=== PATIENT | male | born 1945 | race Caucasian/White ===

== ENCOUNTER → 2017-12-03 06:59 | Outpatient (CLI) | payer MEDICARE, OTHER, SELFPAY ==
[2017-12-03 09:14] LABS: Alanine Aminotransferase 42 IU/L (21-72); Albumin 4.5 g/dL (3.5-5.0); Albumin Globulin Ratio 1.7 (1.0-2.8); Alkaline Phosphatase 56 U/L (38-126); Aspartate Aminotransferase 50 IU/L (17-59); BUN Creatinine Ratio 26.7 (6-22); Bilirubin Total 0.9 mg/dL (0.2-1.3); Blood Urea Nitrogen 40 mg/dL (9-20); Calcium 9.7 mg/dL (8.4-10.2); Carbon Dioxide 28 mmol/L (22-32); Chloride 101 mmol/L (98-107); Cholesterol 163 mg/dL (140-199); Globulin 2.6 g/dL (1.7-4.1); Glucose 112 mg/dL (80-110); HDL Cholesterol 33 mg/dL (40-60); HEMOLYSIS < 15 (0-50); LDL Cholesterol Calculated 85 mg/dL (<100); Sodium 141 mmol/L (137-145); Total Protein 7.1 g/dL (6.3-8.2); Triglycerides 224 mg/dL (35-150)
[2017-12-03 09:15] LABS: Potassium 5.4 mmol/L (3.4-5.1)
[2017-12-03 09:39] LABS: Prostate Specific Antigen Scrn 1.11 ng/mL (0.1-4.0)
== END ==
PROVIDERS: PCP Internal Medicine; Visit Provider Internal Medicine
DX: F41.1 Generalized anxiety disorder (principal); I10 Essential (primary) hypertension; Z12.5 Encounter for screening for malignant neoplasm of prostate
CPT/HCPCS: 36415; 80053; 80061; G0103

== ENCOUNTER 2017-12-22 13:59 | Emergency (ER) | payer MEDICARE, OTHER, SELFPAY ==
[2017-12-22 14:01] VITALS: BP 119/66; PULSE 58; RESP 20; TEMP 36.6; O2SAT 99
--- NOTE | 2017-12-22 16:41 | PC.NURSE ---
pt arrival to room, sutures x 7 by md. tube gauze dressing placed/ instructions given. nad. will follow up
--- NOTE | 2017-12-22 19:27 | ED_ITS ---
HPI - Wound/Laceration General Chief Complaint: Wound/Laceration Stated Complaint: sliced pointer finger on lt hand open Time Seen by Provider: 12/22/17 15:24 Source: patient Mode of arrival: ambulatory Limitations: no limitations History of Present Illness HPI narrative: 72-year-old nonsmoking male presents with accidental laceration to the volar surface of his left index finger. His tetanus was updated about 5 years ago. The patient was using a freshly sharp knife in an attempt to soft taste some onions in his kitchen when it slipped and lacerated his finger. He has full range of motion and denies any numbness, weakness or tingling. Onset (ago): minute(s) Extremity Location: Left: hand Place: home Patient tetanus UTD: Yes Context: accidental Associated symptoms: none Related Data Home Medications Medication Instructions Recorded Confirmed multivitamin 1 tab PO DAILY #0 08/08/07 12/22/17 ibuprofen [Advil] 200 mg PO PRN #0 10/02/10 12/22/17 aspirin 325 mg tablet,delayed 325 mg PO DAILY 12/05/17 12/22/17 release doxycycline hyclate 50 mg PO BID 12/22/17 12/22/17 Previous Rx's Medication Instructions Recorded citalopram [Celexa] 20 mg PO QDAY #90 tab 02/13/17 hydrochlorothiazide 25 mg PO QDAY #90 tab 04/07/17 metoprolol succinate 100 mg PO Q DAY #30 tab 09/15/17 clonazepam 0.5 mg tablet 0.5 mg PO BID #60 tab 11/17/17 amlodipine 10 mg tablet 10 mg PO DAILY #90 tab 12/05/17 lisinopril 40 mg tablet 40 mg PO DAILY #90 tab 12/05/17 Allergies Allergy/AdvReac Type Severity Reaction Status Date / Time No Known Drug Allergies Allergy Verified 12/05/17 09:33 Review of Systems Review of Systems All systems reviewed & are unremarkable except as noted in HPI and below Constitutional Denies chills, Denies fever(s), Denies lethargy and Denies weakness Eyes Denies change in vision, Denies eye discharge, Denies irritation and Denies loss of vision ENT Ears, Nose, Mouth, and Throat: Denies change in voice, Denies neck pain and Denies sore throat Cardiovascular Denies chest pain, Denies irregular heart rhythm, Denies lightheadedness, Denies palpitations, Denies dyspnea, Denies dyspnea on exertion and Denies orthopnea Respiratory Denies cough, Denies dyspnea, Denies dyspnea on exertion and Denies wheezing Gastrointestinal Gastrointestinal: Denies abdominal pain, Denies change in bowel habits, Denies diarrhea, Denies nausea and Denies vomiting Genitourinary Denies hematuria, Denies flank pain, Denies urinary incontinence and Denies urinary urgency Musculoskeletal Denies neck pain Integumentary/Breasts Denies pruritus, Denies erythema, Denies rash and Reports wounds Neurologic Denies confusion, Denies loss of vision and Denies weakness Psychiatric Denies anxiety, Denies confusion, Denies depression, Denies homicidal ideation and Denies suicidal ideation Endocrine Denies palpitations Hematologic/Lymphatic Denies easy bruising Allergic/Immunologic Denies wheezing [facility] Medical History Essential hypertension (Chronic 08/22/10) Generalized anxiety disorder (Chronic 08/22/10) Mixed hyperlipidemia (Chronic 10/02/10) Depression (Chronic 08/23/14) Surgical History Status post tonsillectomy and adenoidectomy Social History marital status: number of children: 2 (.) household members: spouse lives independently: Yes caregiver/support person: No housing: house pets and animals: Yes education level: college occupational status: other (Retired) 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 chandu/cheondoism: [employer] leisure activities: other (House work, cooking, dog ) Smoking Status: Former smoker Tobacco: How many years used: 20 Smokeless tobacco user: other (Cigarettes.) quit status: quit date established (Unknown of stopping date.) second hand exposure: Yes (Childhood) alcohol intake: current (Occasionally, Summer time, During games.) substance use type: does not use and marijuana (Back in College) Exam Narrative Exam Narrative: GEN: AOx3 and in mild distress EYES: Pupils are equal, round, and reactive to light and accommodation. Extraoccular muscles are intact bilaterally. There is no subconjunctival hemorrhage or exudate. CHEST: Lungs are clear to auscultation bilaterally and free of wheezes, rales, or rhonchi. Heart rate is regular rhythm, there are no murmurs, clicks, rubs, or gallops. There is no chest wall tenderness. ABD: Abdomen is soft and nontender. There is no guarding or rebound. Bowel sounds are normal in all 4 quadrants. There is no mass or organomegaly. EXT: Full painless ROM of all extremities with no loss of sensation or strength. SKIN: 2 cm laceration on volar surface of left index finger. Viewed in of bloodless field and no tendon involvement noted. Neurovascularly intact Warm, pink, and dry. No erythema or rash Initial Vital Signs Initial Vital Signs: Vital Signs Temperature 97.9 F 12/22/17 14:01 Pulse Rate 58 L 12/22/17 14:01 Respiratory Rate 20 12/22/17 14:01 Blood Pressure 119/66 12/22/17 14:01 Pulse Oximetry 99 12/22/17 14:01 Procedures Laceration Repair Laceration 1: Site: hand Side (If applicable): left Size (cm): 2 Description: linear Depth: simple, single layer Local Anesthetic: lidocaine 1% and with bicarb Amount of anesthesia used (mL): 3 Pre-repair: wound explored and deep structures intact Skin layer closed with: nylon Size (cm): 4-0 Number of sutures: 6 Technique: simple, interrupted Course Vital Signs - 8 hr 12/22/17 14:01 Temperature 97.9 F Pulse Rate 58 L Respiratory Rate 20 Blood Pressure 119/66 Pulse Oximetry 99 Discharge Plan Departure Patient Disposition: Home Clinical Impression: Laceration of finger, index Discharge Date/Time: 12/22/17 16:42 Interventions: ED Discharge Assessment Last Done: 12/22/17 16:41 Instructions: DI for Laceration Repair Activity Restrictions/Additional Instructions: Please keep the wound clean and dry to the best of your ability. Please monitor for signs of infection such as redness to the skin or increasing pain. Have the sutures removed by your doctor in about 7 days. If you are unable to get into your doctor, we would be happy to remove the sutures in that same timeframe. Prescriptions: No Action multivitamin Tablet 1 tab PO DAILY Qty: 0 RF: 0 ibuprofen [Advil] 200 MG tablet 200 mg PO PRN Qty: 0 RF: 0 citalopram [Celexa] 20 MG tablet 20 mg PO QDAY Qty: 90 RF: 11 hydrochlorothiazide 25 MG tablet 25 mg PO QDAY Qty: 90 RF: 3 metoprolol succinate 100 mg tablet extended release 24 hr 100 mg PO Q DAY Qty: 30 RF: 11 clonazepam [Klonopin] 0.5 mg tablet 0.5 mg PO BID Qty: 60 RF: 4 aspirin 325 mg tablet,delayed release (DR/EC) 325 mg PO DAILY RF: 0 amlodipine 10 mg tablet 10 mg PO DAILY Qty: 90 RF: 3 lisinopril 40 mg tablet 40 mg PO DAILY Qty: 90 RF: 3 doxycycline hyclate 100 mg tablet 50 mg PO BID RF: 0 Referrals: Gilmar Darnell MD [Primary Care Provider] -
== END 2017-12-22 16:42 | disposition home or self-care (01) ==
PROVIDERS: Emergency Provider Emergency Medicine; PCP Internal Medicine
DX: S61.211A Laceration without foreign body of left index finger without damage to nail, initial encounter (principal); W26.0XXA Contact with knife, initial encounter
CPT/HCPCS: 12001; 99282; 99283

== ENCOUNTER → 2018-01-27 09:38 | Outpatient (CLI) | payer MEDICARE, OTHER, SELFPAY ==
[2018-01-27 10:38] LABS: BUN Creatinine Ratio 38.3 (6-22); Blood Urea Nitrogen 46 mg/dL (9-20); Calcium 9.1 mg/dL (8.4-10.2); Carbon Dioxide 23 mmol/L (22-32); Chloride 105 mmol/L (98-107); Estimated Glomerular Filt Rate 59.5 mL/min (>60); Glucose 95 mg/dL (80-110); HEMOLYSIS < 15 (0-50); Potassium 5.3 mmol/L (3.4-5.1); Sodium 143 mmol/L (137-145)
== END ==
PROVIDERS: PCP Internal Medicine; Visit Provider Internal Medicine
DX: I10 Essential (primary) hypertension (principal)
CPT/HCPCS: 36415; 80048

== ENCOUNTER → 2018-07-23 10:35 | Outpatient (CLI) | payer MEDICARE, OTHER, SELFPAY ==
--- NOTE | 2018-07-23 | DI.US.S_ITS ---
PROCEDURE: US PERIPH VENOUS LOW EXTREM LT INDICATIONS: ANKLE PAIN TECHNIQUE: Real-time imaging, as well as color and pulse Doppler interrogation, were performed of the lower extremity deep veins from the inguinal ligament to the popliteal fossa. COMPARISON: None. FINDINGS: The common femoral, femoral and popliteal veins are normally compressible, and free of intraluminal thrombus. Color and pulse Doppler demonstrate normal phasic intraluminal flow. There is normal augmentation response to distal compression maneuver. IMPRESSION: No evidence of deep venous thrombosis. Dictated by: Lake Lozoya M.D. on 07/24/2018 at 12:28 Approved by: Lake Lozoya M.D. on 07/24/2018 at 12:29
[2018-07-23 12:06] LABS: Add Manual Diff / Slide Review NO; Basophils Absolute Auto 100 /uL (0-100); Basophils Percent Auto 1.1 % (0-2); Eosinophils Absolute Auto 200 /uL (0-450); Eosinophils Percent Auto 3.3 % (2-4); Hematocrit 42.4 % (41-53); Hemoglobin 14.7 g/dL (13.5-17.5); Lymphocytes Absolute Auto 1900 /uL (1100-4500); Lymphocytes Percent Auto 31.9 % (25-40); Mean Corpuscular HGB Conc 34.7 % (30-36); Mean Corpuscular Hemoglobin 35.3 PG (26-34); Mean Corpuscular Volume 101.8 fL (80-100); Monocytes Absolute Auto 700 /uL (0-900); Monocytes Percent Auto 12.4 % (3-14); Neutrophils Absolute Auto 3000 /uL (1500-7000); Neutrophils Percent Auto 51.3 % (50-75); Platelet Count 158 X10^3/uL (150-400); Red Blood Cell Count 4.17 X10^6/uL (4.5-5.9); Red Cell Distribution Width 12.8 % (11.6-14.8); White Blood Cell Count 5.9 X10^3/uL (4.5-11.0)
[2018-07-23 12:24] LABS: Erythrocyte Sedimentation Rate 4 MM/HR (0-15)
[2018-07-23 12:25] LABS: Rheumatoid Factor 12.6 IU/mL (<12.0)
[2018-07-25 18:50] LABS: ANA Screen, IFA Negative (Negative)
== END ==
PROVIDERS: PCP Internal Medicine; Visit Provider Podiatrist
DX: M25.572 Pain in left ankle and joints of left foot (principal); R60.0 Localized edema
CPT/HCPCS: 36415; 84550; 85025; 85651; 86038; 86430; 93971

== ENCOUNTER → 2018-11-23 13:04 | Outpatient (CLI) | payer MEDICARE, OTHER, SELFPAY ==
[2018-11-23 13:44] LABS: Alanine Aminotransferase 39 IU/L (21-72); Albumin 4.6 g/dL (3.5-5.0); Albumin Globulin Ratio 1.6 (1.0-2.8); Alkaline Phosphatase 74 U/L (38-126); Aspartate Aminotransferase 51 IU/L (17-59); BUN Creatinine Ratio 32.2 (6-22); Bilirubin Total 0.6 mg/dL (0.2-1.3); Blood Urea Nitrogen 29 mg/dL (9-20); Calcium 9.5 mg/dL (8.4-10.2); Carbon Dioxide 27 mmol/L (22-32); Chloride 102 mmol/L (98-107); Estimated Glomerular Filt Rate > 60.0 mL/min (>60); Globulin 2.9 g/dL (1.7-4.1); Glucose 102 mg/dL (80-110); HEMOLYSIS < 15 (0-50); Potassium 4.3 mmol/L (3.4-5.1); Sodium 140 mmol/L (137-145); Total Protein 7.5 g/dL (6.3-8.2)
[2018-11-23 14:12] LABS: Prostate Specific Antigen Scrn 0.895 ng/mL (0.1-4.0)
== END ==
PROVIDERS: PCP Internal Medicine; Visit Provider Internal Medicine
DX: E78.2 Mixed hyperlipidemia (principal); I10 Essential (primary) hypertension; Z12.5 Encounter for screening for malignant neoplasm of prostate
CPT/HCPCS: 36415; 80053; G0103

== ENCOUNTER 2019-09-26 08:10 | Emergency (ER) | payer MEDICARE, OTHER, SELFPAY ==
[2019-09-26 08:16] VITALS: BP 197/93; PULSE 74; RESP 16; TEMP 36.1; O2SAT 95; BMI 33.3
--- NOTE | 2019-09-26 08:42 | ED_ITS ---
HPI - Extremity Injury (Lower) General Chief Complaint: Extremity Injury, Lower Stated Complaint: Think I hyperextended my knee a couple days ago Time Seen by Provider: 09/26/19 08:28 Source: patient Mode of arrival: Ambulatory Limitations: no limitations History of Present Illness HPI Narrative: The patient was washing his house and to took his dog walking about 2 days ago. He can recall no specific injury but thinks 1 of these 2 events contributed to pain and swelling in his left knee. He is ambulatory with the knee pain. He has no prior history of medical issues or surgeries on the left knee. There is significant edema around the knee. He has not used pain medications. He has no tenderness or weakness in the left calf. There is no erythema, he has no fever or chills. He has no other injury and no other pain. Related Data Home Medications Medication Instructions Recorded Confirmed multivitamin 1 tab PO DAILY #0 08/08/07 11/30/18 ibuprofen [Advil] 200 mg PO PRN #0 10/02/10 11/30/18 aspirin 325 mg tablet,delayed 325 mg PO DAILY 12/05/17 11/30/18 release Previous Rx's Medication Instructions Recorded metoprolol succinate 100 mg PO Q DAY #30 tab 10/01/18 amlodipine 10 mg tablet See Rx Instructions .ROUTE 11/16/18 .COMPLEX #90 tablet hydrochlorothiazide 25 mg tablet 25 mg PO QDAY #90 tab 02/25/19 clonazepam 0.5 mg tablet 1 mg PO BID #180 tab 06/10/19 citalopram 20 mg tablet See Rx Instructions .ROUTE 08/18/19 .COMPLEX #90 tablet Allergies Allergy/AdvReac Type Severity Reaction Status Date / Time No Known Drug Allergies Allergy Verified 11/30/18 09:26 Review of Systems Constitutional Constitutional: Denies chills, Denies fever(s) and Denies lethargy Comments: No recent illness. ENT Ears, Nose, Mouth, and Throat: Denies dizziness Musculoskeletal Musculoskeletal: Denies numbness Comments: Left knee edema and pain. Integumentary/Breasts Comments: No erythema to the left knee. No other rash, no skin disease. 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 leisure activities: other Smoking Status: Former smoker Tobacco: How many years used: 20 Smokeless tobacco user: other quit status: quit date established second hand exposure: Yes (Childhood) alcohol intake: current substance use type: does not use and marijuana Smoking Status: Former smoker alcohol intake frequency: a few times a week Alcohol type: beer and wine Substance Use Type: does not use Exam Initial Vital Signs Initial Vital Signs: Vital Signs Temperature 96.9 F L 09/26/19 08:16 Pulse Rate 74 09/26/19 08:16 Respiratory Rate 16 09/26/19 08:16 Blood Pressure 197/93 H 09/26/19 08:16 Pulse Oximetry 95 09/26/19 08:16 Const General: cooperative and well developed Nutritional Appearance: well nourished Skin General: no rashes or lesions noted Neuro General: patient alert, patient oriented x3 and other (No lower extremity motor or sensory deficits) Extrem Other: Left knee edema, no erythema. Range of motion 0-90 degrees, with pain during flexion. On anterior drawer sign is normal. There is no medial or lateral joint line tenderness. He does have medial subpatellar tenderness. There is no crepitus. There are no palpable defects. Procedures Orthopedic Splinting/Casting Injury #1: Side: left Lower Extremity Injury Location: knee Lower Extremity Immobilizer: knee immobilizer Post splinting neuro exam: intact Post splinting vascular exam: intact Placed by: Nursing Course Course Course Narrative: The patient is up and ambulatory with a left knee immobilizer in place. He is ambulatory, he feels like the pain is not improved significantly. I explained to the patient improvement may require time. Also, he has taken nothing for pain, and denied pain medications here in the ER. He is advised to follow-up with his PCM, Dr. Darnell. Orders Ordered: ED Orders 09/26/19 08:56 XR knee LT 3V Stat Vital Signs Vital signs: Vital Signs - 8 hr 09/26/19 08:16 09/26/19 10:16 Temperature 96.9 F L Pulse Rate 74 80 Respiratory Rate 16 16 Blood Pressure 197/93 H 197/93 H Pulse Oximetry 95 95 MDM - Extremity Injury (Lower) Imaging Data Left knee x-ray: Radiologist's Impression: [address] [address] XRay Report Signed Patient: Elieser Cleaning LMR#: [id number] : 6Acct:[id number] Age/Sex: 74 / MDate of Service: 09/26/19 Loc: ED Accession Number: [id number] Procedure: XR knee LT 3V Ordering Provider: Anup Kincaid MD PROCEDURE: XR KNEE LT 3V INDICATIONS: Pain and swelling TECHNIQUE: 3 views of the knee were acquired. COMPARISON: None. FINDINGS: Bones: No fractures or dislocations. No suspicious bony lesions. Soft tissues: No joint effusion. No suspicious soft tissue calcifications. IMPRESSION: No acute finding. Dictated by: Ryley Dennison M.D. on 09/26/2019 at 9:11 Approved by: Ryley Dennison M.D. on 09/26/2019 at 9:11 Discharge Plan Departure Patient Disposition: Home Clinical Impression: Strain of left knee Qualifiers: Encounter type: initial encounter Qualified Code(s): S86.912A - Strain of unspecified muscle(s) and tendon(s) at lower leg level, left leg, initial encounter Discharge Date/Time: 09/26/19 11:07 Instructions: DI for Knee Sprain Activity Restrictions/Additional Instructions: Tylenol 2 tabs every 4 hours, or Advil 2 tabs every 6 hours as needed for pain. Use knee immobilizer when up and about, you may take the immobilizer off when at rest or when bathing. Wean from the immobilizer as tolerated if the knee improves. Follow-up with Dr. Darnell in about 2 weeks, if you are not improving Dr. Darnell may consider additional evaluation suchh as an MRI, or consultation with an orthopedic surgeon. Return to the ER as necessary. Prescriptions: No Action multivitamin Tablet 1 tab PO DAILY Qty: 0 RF: 0 ibuprofen [Advil] 200 MG tablet 200 mg PO PRN Qty: 0 RF: 0 metoprolol succinate 100 mg tablet extended release 24 hr 100 mg PO Q DAY Qty: 30 RF: 11 amlodipine 10 mg tablet See Rx Instructions .ROUTE .COMPLEX Qty: 90 RF: 3 hydrochlorothiazide 25 mg tablet 25 mg PO QDAY Qty: 90 RF: 3 clonazepam [Klonopin] 0.5 mg tablet 1 mg PO BID Qty: 180 RF: 3 citalopram 20 mg tablet See Rx Instructions .ROUTE .COMPLEX Qty: 90 RF: 0 aspirin 325 mg tablet,delayed release (DR/EC) 325 mg PO DAILY RF: 0 Referrals: Gilmar Darnell MD [Primary Care Provider] -
--- NOTE | 2019-09-26 08:56 | DI.RAD.S_ITS ---
PROCEDURE: XR KNEE LT 3V INDICATIONS: Pain and swelling TECHNIQUE: 3 views of the knee were acquired. COMPARISON: None. FINDINGS: Bones: No fractures or dislocations. No suspicious bony lesions. Soft tissues: No joint effusion. No suspicious soft tissue calcifications. IMPRESSION: No acute finding. Dictated by: Ryley Dennison M.D. on 09/26/2019 at 9:11 Approved by: Ryley Dennison M.D. on 09/26/2019 at 9:11
--- NOTE | 2019-09-26 10:10 | PC.NURSE ---
Knee immobilizer applied to patient left extremity. Repeat vitals obtained, patient BP hypertensive at 197/93. Patient reports that has known history of hypertension and did not take his metoprolol dose this morning. Denies SOB, chest pain, or lightheadedness.
[2019-09-26 10:16] VITALS: BP 197/93; PULSE 80; RESP 16; O2SAT 95
== END 2019-09-26 11:07 | disposition home or self-care (01) ==
PROVIDERS: Emergency Provider Emergency Medicine; PCP Internal Medicine
DX: S86.912A Strain of unspecified muscle(s) and tendon(s) at lower leg level, left leg, initial encounter (principal)
CPT/HCPCS: 73562; 99283

== ENCOUNTER → 2019-11-19 10:33 | Outpatient (CLI) | payer MEDICARE, OTHER, SELFPAY ==
[2019-11-19 12:35] LABS: Alanine Aminotransferase 32 IU/L (<50); Albumin 4.4 g/dL (3.5-5.0); Albumin Globulin Ratio 1.6 (1.0-2.8); Alkaline Phosphatase 79 U/L (38-126); Aspartate Aminotransferase 48 IU/L (17-59); BUN Creatinine Ratio 20.9 (6-22); Bilirubin Total 0.7 mg/dL (0.2-1.3); Blood Urea Nitrogen 18 mg/dL (9-20); Calcium 9.3 mg/dL (8.4-10.2); Carbon Dioxide 28 mmol/L (22-32); Chloride 103 mmol/L (98-107); Estimated Glomerular Filt Rate > 60.0 mL/min (>60); Globulin 2.8 g/dL (1.7-4.1); Glucose 106 mg/dL (80-110); HEMOLYSIS < 15 (0-50); Sodium 138 mmol/L (137-145); Total Protein 7.2 g/dL (6.3-8.2)
[2019-11-19 13:10] LABS: Prostate Specific Antigen Scrn 0.726 ng/mL (0.1-4.0)
== END ==
PROVIDERS: PCP Internal Medicine; Referring Provider Internal Medicine; Visit Provider Internal Medicine
DX: F32.9 Major depressive disorder, single episode, unspecified (principal); I10 Essential (primary) hypertension; Z12.5 Encounter for screening for malignant neoplasm of prostate
CPT/HCPCS: 36415; 80053; G0103

== ENCOUNTER 2020-01-04 08:15 | Outpatient (RCR) | payer MEDICARE, OTHER, SELFPAY ==
--- NOTE | 2019-11-10 16:05 | PT.OIE ---
Current Diagnoses Pain in left knee (11/10/19) Past Medical History (Last Reviewed 09/26/19 @ 08:59 by Anup Kincaid MD) Depression (Chronic 08/23/14) Essential hypertension (Chronic 08/22/10) Generalized anxiety disorder (Chronic 08/22/10) Mixed hyperlipidemia (Resolved 10/02/10) Past Surgical History (Last Reviewed 09/26/19 @ 08:59 by Anup Kincaid MD) Status post tonsillectomy and adenoidectomy Visit Care Team Role Provider Type Gilmar Darnell MD Attending Provider Physician Primary Care Provider Referring Provider Specialty: Internal Medicine Address: [address] [place] [address], [address], [facility] Email: [email or web address] Physical Therapy Initial Evaluation PT-OP-A Visit Information Start: 11/09/19 08:07 Freq: Status: Active Protocol: Document 11/10/19 09:05 DEBBIE (Rec: 11/10/19 09:08 [facility] [id number]) Out-Patient Physical Therapy Visit Information Visit Information Visit Type Initial Evaluation Visit Start Time 09:00 Visit Stop Time 09:56 Total Visit Minutes 56 Visit Number 1 Number of PANEL RAISER OPERATOR Visits 0 Evaluation Information Evaluation Date 11/10/19 Precautions Precautions Prior right ankle and tibia fracture requiring surgery, reports he developed bursitis left hip as result PT-OP-B Current Condition Start: 11/09/19 08:07 Freq: Status: Active Protocol: Document 11/10/19 09:05 SAK (Rec: 11/10/19 09:08 [facility] [id number]) Current Condition History of Current Condition Onset Date 09/26/19 Current Complaints left knee pain History of Current Condition walking dog, dog went after animal, pulled hard and felt immediate pain in his knee, like maybe it hyperextended. Patient reports pain bottom of kneecap and lateral knee, leg feels loose, sometimes sensation of cracking. Has tried several knee braces, neoprene most helpful but hasn 't worn for awhile due to reported swelling when he wears. Denies leg giving way though does report that it appears to lock at times. Occasionally uses cane Prior Treatments and Tests x-ray negative for fractures, brace, ice (not recently) Treatment Goals Patient/Caregiver Goals Minimize pain, be able to resume prior activity level without pain Prior Functional Status Baseline Function- ADL's Independent Baseline Function- Mobility Independent Baseline Function- Gait indep, no pain Current Functional Impairments (Reported) Functional Limitations- ADL's painful Functional Limitations- Mobility/Gait painful PT-OP-C Subjective Start: 11/09/19 08:07 Freq: Status: Active Protocol: Document 11/10/19 09:05 [facility] (Rec: 11/10/19 12:07 [facility] [id number]) Patient Questionnaires Lower Extremity Functional Scale LEFS Score 73% OP-PT Pain Assessment Pain Assessment Grid Paper Pain Assessment Grid Completed Yes Location left anterior and lateral knee Intensity 4 Scale Used Numeric (0 - 10) Description Aching,Sharp,Tightness Frequency Frequent Pain Aggravating Factors Activity Pain Alleviating Factors Inactivity PT-OP-F Manual Assessment Start: 11/09/19 08:07 Freq: Status: Active Protocol: Document 11/10/19 09:05 [facility] (Rec: 11/10/19 12:07 [facility] [id number]) Manual Assessments Soft Tissue Assessment Soft Tissue Mobility Assessment palpable soft tissue tightness left quad, IT band left Joint Mobility Assessment Joint Mobility Assessment decreased patellofemoral mobility all directions PT-OP-G Mobility & Gait Start: 11/09/19 08:07 Freq: Status: Active Protocol: Document 11/10/19 09:05 [facility] (Rec: 11/10/19 12:07 [facility] [id number]) OP Gait Assessment Gait Gait Assistance Required: Independent Assistive Devices Assistive Device None Gait Deviations General Gait Pattern Antalgic Factors Limiting Gait Function Factors Limiting Gait Function Pain Stair Climbing Evaluation Technique/Endurance Stair Climbing Technique Step to Step Comments Stair Climbing Comments painful PT-OP-H Neuro Start: 11/09/19 08:07 Freq: Status: Active Protocol: Document 11/10/19 09:05 [facility] (Rec: 11/10/19 12:07 SAK [id number]) Sensation Evaluation Gross Sensation Gross Sensation WNL PT-OP-J Posture/Palpation/Skin Start: 11/09/19 08:07 Freq: Status: Active Protocol: Document 11/10/19 09:05 [facility] (Rec: 11/10/19 12:07 SAK [id number]) Posture Evaluation Position Standing Weight Distribution Weight Shifted Right Knee Posture (L) Genu Varus,(R) Genu Varus Ankle/Foot Posture (L) Neutral,(R) Neutral Palpation Assessment Location left knee Palpation Location infrapellar, lateral patellar region Palpation Findings Edema,Soft Tissue Tightness, Tenderness Skin Assessment Edema Assessment left knee Edema Type Non-Pitting Edema Degree 2+ Subjective Edema Description Tightness Comments no erythema PT-OP-K Range of Motion Start: 11/09/19 08:07 Freq: Status: Active Protocol: Document 11/10/19 09:05 [facility] (Rec: 11/10/19 12:07 SAK [id number]) Knee Goniometric Range of Motion Knee Left Knee ROM WFL No Flexion Active (degrees) 98 Extension Active (degrees) 0 Right Knee ROM WFL Yes Knee ROM Limitations Knee ROM Limitations Soft Tissue Tightness,Swelling Ankle and Foot Goniometric Range of Motion Ankle and Foot christofer Ankle/Foot ROM WFL Yes PT-OP-L Special Tests Start: 11/09/19 08:07 Freq: Status: Active Protocol: Document 11/10/19 09:05 [facility] (Rec: 11/10/19 12:07 [facility] [id number]) Special Tests Knee Special Tests Varus- 25 Degrees Test Results negative Valgus- 25 Degrees Test Results negative Patellar Grind Test Test Results negative Posterior Draw Test Results negative Anterior Draw Test Results negative PT-OP-M Strength Start: 11/09/19 08:07 Freq: Status: Active Protocol: Document 11/10/19 09:05 [facility] (Rec: 11/10/19 16:05 [facility] [id number]) Hip Strength Hip Manual Muscle Testing Left Flexion (L2) 4+ Good+ Extension (S1) 4 Good Abduction 4+ Good+ Right Flexion (L2) 4+ Good+ Extension (S1) 4 Good Abduction 4+ Good+ Knee Strength Knee Manual Muscle Testing Left Flexion (S2) 4- Good- Extension (L3) 4 Good Right Flexion (S2) 5 Normal Extension (L3) 5 Normal PT-OP-Q Treatments Start: 11/09/19 08:07 Freq: Status: Active Protocol: Document 11/10/19 09:05 [facility] (Rec: 11/10/19 16:05 [facility] [id number]) Manual Therapy Treatment Taping 1 Body Location left knee Treatment Focus patellar support, pain reduction Type of Tape Kinesio Tape Skin Inspection intact Comments 2 Y strips Self-Care/Home Management Treatment Education Patient Education Pain Management PT-OP-R Modalities Start: 11/09/19 08:07 Freq: Status: Active Protocol: Document 11/10/19 09:05 DEBBIE (Rec: 11/10/19 16:05 [facility] [id number]) Electric Stimulation Electric Stimulation Interferential Current (IFC) Body Location left knee Duration (Minutes) 12 Intensity 17 Target/Sweep Sweep Patient Position Hooklying Combined With Heat/Cold Cold Pack PT-OP-T Assessment and Plan Start: 11/09/19 08:07 Freq: Status: Active Protocol: Document 11/10/19 09:05 DEBBIE (Rec: 11/10/19 16:05 [facility] [id number]) Physical Therapy Assessment Rehab Potential Rehabilitation Potential Good Evaluation Complexity Number of Personal Factors/Comorbidities 1-2 Number of Body Systems Impaired 3 Clinical Presentation at Evaluation Evolving Impairments Impairments Gait,Pain,Strength Goals Three Impairment antalgic gait [facility] Goal (LTG) Patient able to ambulate without limp and with step over step gait on stairs LTG Duration 01/09/20 Two Impairment weakness left knee Agricultural Plow Operator Goal (LTG) strength left knee 5/5 to allow patient to return to usual activities LTG Duration 01/09/20 One Impairment pain left knee limiting patient mobility [facility] Goal (LTG) decrease pain to no greater than 1/10 during all usual activity including taking his dog for a walk LTG Duration 01/09/20 Assessment Summary Assessment Patient presents with function -limiting left knee pain s/p injury sustained when he walk walking his dog. No erythema, but patient does have edema, decreased patellar mobility, decreased strength, and antalgic gait. Ligament testing was negative, meniscus testing inconclusive but does report some locking at times. Strength limited by pain. Feel he would benefit from PT to decrease his swelling and pain, improve his strength, and help return him to his usal activities including ambulating without pain. If doesn't progress further imaging may be indicated. Physical Therapy Plan Frequency and Duration Frequency of Treatment 2x/Week Duration of Treatment 8 wks Plan of Care Start Date 11/10/19 Plan of Care End Date 01/09/20 Therapeutic Interventions Therapeutic Interventions Aquatic Therapy,Gait Training, Home Exercise Program,Manual Therapy,Neuromuscular Re- education,Orthotic/Prosthetic Management,Patient/Caregiver Education,Self-Care/Home Management,Taping,Therapeutic Activities,Therapeutic Exercises Modalities Cold Pack/Ice Massage,Electric Stimulation,Hot Packs, Infrared Therapy,Iontophoresis ,Ultrasound Next Visit Focus/Plan Next Note Type Treatment Note Next Visit Plan Assess response to last session, begin gentle ther ex for strengthening and flexibility.
--- NOTE | 2019-11-10 16:06 | PT.OPPOC ---
Physical, Occupational & Speech Therapy At [facility] Current Diagnoses Pain in left knee (11/10/19) Visit Care Team Role Provider Type Gilmar Darnell MD Attending Provider Physician Primary Care Provider Referring Provider Specialty: Internal Medicine Address: [address] [place] [address], [facility] [address], [place], [address] Email: [email or web address] Plan Of Care PT-OP-T Assessment and Plan Start: 11/09/19 08:07 Freq: Status: Active Protocol: Document 11/10/19 09:05 DEBBIE (Rec: 11/10/19 16:05 SAK [id number]) Physical Therapy Assessment Rehab Potential Rehabilitation Potential Good Evaluation Complexity Number of Personal Factors/Comorbidities 1-2 Number of Body Systems Impaired 3 Clinical Presentation at Evaluation Evolving Impairments Impairments Gait,Pain,Strength Goals Three Impairment antalgic gait Photo Offset Printer Goal (LTG) Patient able to ambulate without limp and with step over step gait on stairs LTG Duration 01/09/20 Two Impairment weakness left knee Photo Offset Printer Goal (LTG) strength left knee 5/5 to allow patient to return to usual activities LTG Duration 01/09/20 One Impairment pain left knee limiting patient mobility Photo Offset Printer Goal (LTG) decrease pain to no greater than 1/10 during all usual activity including taking his dog for a walk LTG Duration 01/09/20 Assessment Summary Assessment Patient presents with function -limiting left knee pain s/p injury sustained when he walk walking his dog. No erythema, but patient does have edema, decreased patellar mobility, decreased strength, and antalgic gait. Ligament testing was negative, meniscus testing inconclusive but does report some locking at times. Strength limited by pain. Feel he would benefit from PT to decrease his swelling and pain, improve his strength, and help return him to his usal activities including ambulating without pain. If doesn't progress further imaging may be indicated. Physical Therapy Plan Frequency and Duration Frequency of Treatment 2x/Week Duration of Treatment 8 wks Plan of Care Start Date 11/10/19 Plan of Care End Date 01/09/20 Therapeutic Interventions Therapeutic Interventions Aquatic Therapy,Gait Training, Home Exercise Program,Manual Therapy,Neuromuscular Re- education,Orthotic/Prosthetic Management,Patient/Caregiver Education,Self-Care/Home Management,Taping,Therapeutic Activities,Therapeutic Exercises Modalities Cold Pack/Ice Massage,Electric Stimulation,Hot Packs, Infrared Therapy,Iontophoresis ,Ultrasound Next Visit Focus/Plan Next Note Type Treatment Note Next Visit Plan Assess response to last session, begin gentle ther ex for strengthening and flexibility. Plan of Care Dates Plan of Care Start Date 11/10/19 Plan of Care End Date 01/09/20 Electronically Signed by: Carol Hanson, PT 11/10/19 [id number] Please Sign and Return: I have reviewed this Plan of Care and certify that the skilled therapy services above are required to meet the patient?s needs. Physician Signature Date Printed Name and Credentials Clinical Instructor Signature Printed Name and Credentials
--- NOTE | 2019-11-12 10:05 | PT.OTN ---
Current Diagnoses Pain in left knee (11/12/19) Physical Therapy Treatment Note PT-OP-A Visit Information Start: 11/09/19 08:07 Freq: Status: Active Protocol: Document 11/12/19 09:15 SP (Rec: 11/12/19 10:21 SP [id number]) Out-Patient Physical Therapy Visit Information Visit Information Visit Type Treatment Note Visit Note Pt was 45 min early for appt, taken back early due to opening. Visit Start Time 09:15 Visit Stop Time 10:05 Total Visit Minutes 50 Visit Number 2 Number of HEAD OF MAINTENANCE Visits 1 PT-OP-B Current Condition Start: 11/09/19 08:07 Freq: Status: Active Protocol: Document 11/10/19 09:05 SAK (Rec: 11/10/19 09:08 SAK [id number]) Current Condition History of Current Condition Onset Date 09/26/19 Current Complaints left knee pain History of Current Condition walking dog, dog went after animal, pulled hard and felt immediate pain in his knee, like maybe it hyperextended. Patient reports pain bottom of kneecap and lateral knee, leg feels loose, sometimes sensation of cracking. Has tried several knee braces, neoprene most helpful but hasn 't worn for awhile due to reported swelling when he wears. Denies leg giving way though does report that it appears to lock at times. Occasionally uses cane Prior Treatments and Tests x-ray negative for fractures, brace, ice (not recently) Treatment Goals Patient/Caregiver Goals Minimize pain, be able to resume prior activity level without pain Prior Functional Status Baseline Function- ADL's Independent Baseline Function- Mobility Independent Baseline Function- Gait indep, no pain Current Functional Impairments (Reported) Functional Limitations- ADL's painful Functional Limitations- Mobility/Gait painful PT-OP-C Subjective Start: 11/09/19 08:07 Freq: Status: Active Protocol: Document 11/12/19 09:15 SP (Rec: 11/12/19 10:21 SP [id number]) OP-PT Subjective Patient Comments Patient Comments Pt reported no having any pain prePT, no adverse affects to last tx eval. He stated taping helped alot with knee pain and movement. HEAD OF MAINTENANCE noted L ankle swelling superior L ankle. PT-OP-F Manual Assessment Start: 11/09/19 08:07 Freq: Status: Active Protocol: Document 11/10/19 09:05 SAK (Rec: 11/10/19 12:07 SAK [id number]) Manual Assessments Soft Tissue Assessment Soft Tissue Mobility Assessment palpable soft tissue tightness left quad, IT band left Joint Mobility Assessment Joint Mobility Assessment decreased patellofemoral mobility all directions PT-OP-G Mobility & Gait Start: 11/09/19 08:07 Freq: Status: Active Protocol: Document 11/10/19 09:05 SAK (Rec: 11/10/19 12:07 SAK [id number]) OP Gait Assessment Gait Gait Assistance Required: Independent Assistive Devices Assistive Device None Gait Deviations General Gait Pattern Antalgic Factors Limiting Gait Function Factors Limiting Gait Function Pain Stair Climbing Evaluation Technique/Endurance Stair Climbing Technique Step to Step Comments Stair Climbing Comments painful PT-OP-H Neuro Start: 11/09/19 08:07 Freq: Status: Active Protocol: Document 11/10/19 09:05 [facility] (Rec: 11/10/19 12:07 SAK [id number]) Sensation Evaluation Gross Sensation Gross Sensation WNL PT-OP-J Posture/Palpation/Skin Start: 11/09/19 08:07 Freq: Status: Active Protocol: Document 11/10/19 09:05 [facility] (Rec: 11/10/19 12:07 SAK [id number]) Posture Evaluation Position Standing Weight Distribution Weight Shifted Right Knee Posture (L) Genu Varus,(R) Genu Varus Ankle/Foot Posture (L) Neutral,(R) Neutral Palpation Assessment Location left knee Palpation Location infrapellar, lateral patellar region Palpation Findings Edema,Soft Tissue Tightness, Tenderness Skin Assessment Edema Assessment left knee Edema Type Non-Pitting Edema Degree 2+ Subjective Edema Description Tightness Comments no erythema PT-OP-K Range of Motion Start: 11/09/19 08:07 Freq: Status: Active Protocol: Document 11/10/19 09:05 SAK (Rec: 11/10/19 12:07 SAK [id number]) Knee Goniometric Range of Motion Knee Left Knee ROM WFL No Flexion Active (degrees) 98 Extension Active (degrees) 0 Right Knee ROM WFL Yes Knee ROM Limitations Knee ROM Limitations Soft Tissue Tightness,Swelling Ankle and Foot Goniometric Range of Motion Ankle and Foot christofer Ankle/Foot ROM WFL Yes PT-OP-L Special Tests Start: 11/09/19 08:07 Freq: Status: Active Protocol: Document 11/10/19 09:05 SAK (Rec: 11/10/19 12:07 SAK [id number]) Special Tests Knee Special Tests Varus- 25 Degrees Test Results negative Valgus- 25 Degrees Test Results negative Patellar Grind Test Test Results negative Posterior Draw Test Results negative Anterior Draw Test Results negative PT-OP-M Strength Start: 11/09/19 08:07 Freq: Status: Active Protocol: Document 11/10/19 09:05 SAK (Rec: 11/10/19 16:05 SAK [id number]) Hip Strength Hip Manual Muscle Testing Left Flexion (L2) 4+ Good+ Extension (S1) 4 Good Abduction 4+ Good+ Right Flexion (L2) 4+ Good+ Extension (S1) 4 Good Abduction 4+ Good+ Knee Strength Knee Manual Muscle Testing Left Flexion (S2) 4- Good- Extension (L3) 4 Good Right Flexion (S2) 5 Normal Extension (L3) 5 Normal PT-OP-Q Treatments Start: 11/09/19 08:07 Freq: Status: Active Protocol: Document 11/12/19 09:15 SP (Rec: 11/12/19 10:21 SP [id number]) Cardio Equipment Recumbent Elliptical (Biodex) Duration (Minutes) 6 Resistance 3>4 Seat Position 10 Gym Equipment Cable Column (Body Solid) LE ext Resistance #4 Reps/Time 3x10 Therapeutic Exercises Supine Exercises heel slide Side left Resistance AROM Reps/Minutes 2x10 Comments cued slowed movement control HS stretch w/ towel ankle pump Side left Reps/Minutes 3x10 ankle pump Comments cued slow movement: stretch HS and circulation return ankle SLR Side left Reps/Minutes 3x10 quad set Side left Reps/Minutes 10 sec hold x10 Sitting Exercises HS/ calf stick rolling Side left Reps/Minutes 1 min Standing Exercises calf stretch Side bilateral Reps/Minutes 30 x3 Comments cued no hyper knee extension eccentric calf raise Side bilateral Equipment Used Rail, 6 step Reps/Minutes x10 Comments cued awareness soft knee and no hyper extension TKE Side left Resistance Tb #4 Equipment Used chair for contact PRN Reps/Minutes 3 sec hold x10 x3 sets Comments cued stable trunk/pelvis, no end range hyperextension PT-OP-R Modalities Start: 11/09/19 08:07 Freq: Status: Active Protocol: Document 11/10/19 09:05 SAK (Rec: 11/10/19 16:05 SAK [id number]) Electric Stimulation Electric Stimulation Interferential Current (IFC) Body Location left knee Duration (Minutes) 12 Intensity 17 Target/Sweep Sweep Patient Position Hooklying Combined With Heat/Cold Cold Pack PT-OP-T Assessment and Plan Start: 11/09/19 08:07 Freq: Status: Active Protocol: Document 11/12/19 09:15 SP (Rec: 11/12/19 10:21 SP [id number]) Physical Therapy Assessment Goals Three Impairment antalgic gait Half-Way Goal (LTG) Patient able to ambulate without limp and with step over step gait on stairs LTG Duration 01/09/20 Two Impairment weakness left knee Housekeeping Lead Goal (LTG) strength left knee 5/5 to allow patient to return to usual activities LTG Duration 01/09/20 One Impairment pain left knee limiting patient mobility Housekeeping Lead Goal (LTG) decrease pain to no greater than 1/10 during all usual activity including taking his dog for a walk LTG Duration 01/09/20 Assessment Summary Assessment HEAD OF MAINTENANCE educated elevating LLE and ankle ROM to allow for decreased swelling during the day. Pt responded well to K taping last tx for pain and stabilization still intact, didn't retape today. Pt responded well to initiating CC L knee strengthening and flexibility exercises today, cuing for set up and proper form/ alignment with good carry over. Pt declined HO for self at home (left in chart if changes his mind). Pt reported no pain end of tx. Pt interested in further challenge next tx. Physical Therapy Plan Frequency and Duration Frequency of Treatment 2x/Week Duration of Treatment 8 wks Plan of Care Start Date 11/10/19 Plan of Care End Date 01/09/20 Therapeutic Interventions Therapeutic Interventions Aquatic Therapy,Gait Training, Home Exercise Program,Manual Therapy,Neuromuscular Re- education,Orthotic/Prosthetic Management,Patient/Caregiver Education,Self-Care/Home Management,Taping,Therapeutic Activities,Therapeutic Exercises Modalities Cold Pack/Ice Massage,Electric Stimulation,Hot Packs, Infrared Therapy,Iontophoresis ,Ultrasound Next Visit Focus/Plan Next Note Type Treatment Note Next Visit Plan Assess response to last session: check k taping L knee , added Quad set, SLR, heel slide, HS stretch w /ankle pump, TKE, LE ext machine and eccentric calf raises, self stick rolling HS and calf for decrease tension to improve cramps has at times. Next tx review HEP, if tolerated add band walk, HS curl gentle ther ex for strengthening and flexibility.
--- NOTE | 2019-11-15 09:09 | PT.OTN ---
Current Diagnoses Pain in left knee (11/15/19) Physical Therapy Treatment Note PT-OP-A Visit Information Start: 11/09/19 08:07 Freq: Status: Active Protocol: Document 11/15/19 08:19 SP (Rec: 11/15/19 09:24 SP [id number]) Out-Patient Physical Therapy Visit Information Visit Information Visit Type Treatment Note Visit Start Time 08:19 Visit Stop Time 09:09 Total Visit Minutes 50 Visit Number 3 Number of SHIRT MARKER Visits 2 PT-OP-B Current Condition Start: 11/09/19 08:07 Freq: Status: Active Protocol: Document 11/10/19 09:05 SAK (Rec: 11/10/19 09:08 SAK [id number]) Current Condition History of Current Condition Onset Date 09/26/19 Current Complaints left knee pain History of Current Condition walking dog, dog went after animal, pulled hard and felt immediate pain in his knee, like maybe it hyperextended. Patient reports pain bottom of kneecap and lateral knee, leg feels loose, sometimes sensation of cracking. Has tried several knee braces, neoprene most helpful but hasn 't worn for awhile due to reported swelling when he wears. Denies leg giving way though does report that it appears to lock at times. Occasionally uses cane Prior Treatments and Tests x-ray negative for fractures, brace, ice (not recently) Treatment Goals Patient/Caregiver Goals Minimize pain, be able to resume prior activity level without pain Prior Functional Status Baseline Function- ADL's Independent Baseline Function- Mobility Independent Baseline Function- Gait indep, no pain Current Functional Impairments (Reported) Functional Limitations- ADL's painful Functional Limitations- Mobility/Gait painful PT-OP-C Subjective Start: 11/09/19 08:07 Freq: Status: Active Protocol: Document 11/15/19 08:19 SP (Rec: 11/15/19 09:26 SP [id number]) OP-PT Subjective Patient Comments Patient Comments Pt reported having trouble with TKE exercise at home with band, wants to review. The K taping helped alot and just fell off from 2 tx's ago but doesn't feel needed now. Will get some for home if needed, suggested precut K tape. Patient Reported Progress Improving PT-OP-F Manual Assessment Start: 11/09/19 08:07 Freq: Status: Active Protocol: Document 11/10/19 09:05 SAK (Rec: 11/10/19 12:07 SAK [id number]) Manual Assessments Soft Tissue Assessment Soft Tissue Mobility Assessment palpable soft tissue tightness left quad, IT band left Joint Mobility Assessment Joint Mobility Assessment decreased patellofemoral mobility all directions PT-OP-G Mobility & Gait Start: 11/09/19 08:07 Freq: Status: Active Protocol: Document 11/10/19 09:05 SAK (Rec: 11/10/19 12:07 SAK [id number]) OP Gait Assessment Gait Gait Assistance Required: Independent Assistive Devices Assistive Device None Gait Deviations General Gait Pattern Antalgic Factors Limiting Gait Function Factors Limiting Gait Function Pain Stair Climbing Evaluation Technique/Endurance Stair Climbing Technique Step to Step Comments Stair Climbing Comments painful PT-OP-H Neuro Start: 11/09/19 08:07 Freq: Status: Active Protocol: Document 11/10/19 09:05 SAK (Rec: 11/10/19 12:07 SAK [id number]) Sensation Evaluation Gross Sensation Gross Sensation WNL PT-OP-J Posture/Palpation/Skin Start: 11/09/19 08:07 Freq: Status: Active Protocol: Document 11/10/19 09:05 SAK (Rec: 11/10/19 12:07 SAK [id number]) Posture Evaluation Position Standing Weight Distribution Weight Shifted Right Knee Posture (L) Genu Varus,(R) Genu Varus Ankle/Foot Posture (L) Neutral,(R) Neutral Palpation Assessment Location left knee Palpation Location infrapellar, lateral patellar region Palpation Findings Edema,Soft Tissue Tightness, Tenderness Skin Assessment Edema Assessment left knee Edema Type Non-Pitting Edema Degree 2+ Subjective Edema Description Tightness Comments no erythema PT-OP-K Range of Motion Start: 11/09/19 08:07 Freq: Status: Active Protocol: Document 11/10/19 09:05 SAK (Rec: 11/10/19 12:07 SAK [id number]) Knee Goniometric Range of Motion Knee Left Knee ROM WFL No Flexion Active (degrees) 98 Extension Active (degrees) 0 Right Knee ROM WFL Yes Knee ROM Limitations Knee ROM Limitations Soft Tissue Tightness,Swelling Ankle and Foot Goniometric Range of Motion Ankle and Foot christofer Ankle/Foot ROM WFL Yes PT-OP-L Special Tests Start: 11/09/19 08:07 Freq: Status: Active Protocol: Document 11/10/19 09:05 SAK (Rec: 11/10/19 12:07 SAK [id number]) Special Tests Knee Special Tests Varus- 25 Degrees Test Results negative Valgus- 25 Degrees Test Results negative Patellar Grind Test Test Results negative Posterior Draw Test Results negative Anterior Draw Test Results negative PT-OP-M Strength Start: 11/09/19 08:07 Freq: Status: Active Protocol: Document 11/10/19 09:05 SAK (Rec: 11/10/19 16:05 SAK [id number]) Hip Strength Hip Manual Muscle Testing Left Flexion (L2) 4+ Good+ Extension (S1) 4 Good Abduction 4+ Good+ Right Flexion (L2) 4+ Good+ Extension (S1) 4 Good Abduction 4+ Good+ Knee Strength Knee Manual Muscle Testing Left Flexion (S2) 4- Good- Extension (L3) 4 Good Right Flexion (S2) 5 Normal Extension (L3) 5 Normal PT-OP-Q Treatments Start: 11/09/19 08:07 Freq: Status: Active Protocol: Document 11/15/19 08:19 SP (Rec: 11/15/19 09:24 SP [id number]) Cardio Equipment Bicycle (Upright) Duration (Minutes) 8 Resistance 6 Seat Position 5 Therapeutic Exercises Supine Exercises alix stretch w/ strap Side left Equipment Used strap Reps/Minutes 60 x2 Comments this feels really good, will do this more at home ITB stretch Side bilateral Reps/Minutes 30 x2 HS stretch w/ stra p Side bilateral Reps/Minutes 60 sec x2 heel slide Comments to easy, dc today HS stretch w/ towel ankle pump Comments to hard on neck DC changed to w /strap SLR Side left Reps/Minutes 3x10 quad set Comments to easy DC Prone Exercises quad stretch Side bilateral Reps/Minutes 30 x2 Comments assist with don strap Standing Exercises hip flexor stretch at stair Standing Exercise Name tends to bend forward Side bilateral Equipment Used rail Reps/Minutes 30 x2 Comments cued upright posture and anterior hip forward and depress toward floor calf stretch Side bilateral Reps/Minutes 30 x3 Comments cued no hyper knee extension eccentric calf raise Side bilateral Equipment Used Rail, 6 step Reps/Minutes x10 Comments cued awareness soft knee and no hyper extension TKE Side left Resistance Tb #4 Equipment Used chair for contact PRN Reps/Minutes 3 sec hold x10 x3 sets Comments cued stable trunk/pelvis, no end range hyperextension PT-OP-R Modalities Start: 11/09/19 08:07 Freq: Status: Active Protocol: Document 11/10/19 09:05 SAK (Rec: 11/10/19 16:05 SAK [id number]) Electric Stimulation Electric Stimulation Interferential Current (IFC) Body Location left knee Duration (Minutes) 12 Intensity 17 Target/Sweep Sweep Patient Position Hooklying Combined With Heat/Cold Cold Pack PT-OP-T Assessment and Plan Start: 11/09/19 08:07 Freq: Status: Active Protocol: Document 11/15/19 08:19 SP (Rec: 11/15/19 09:24 SP [id number]) Physical Therapy Assessment Goals Three Impairment antalgic gait Shelter Case Manager Goal (LTG) Patient able to ambulate without limp and with step over step gait on stairs LTG Duration 01/09/20 Two Impairment weakness left knee Residential Goal (LTG) strength left knee 5/5 to allow patient to return to usual activities LTG Duration 01/09/20 One Impairment pain left knee limiting patient mobility Residential Goal (LTG) decrease pain to no greater than 1/10 during all usual activity including taking his dog for a walk LTG Duration 01/09/20 Assessment Summary Assessment Pt responded well to last tx, difficulty with TKE at home, reviewed set up in door self with good demonstration added band walk with cuing for chair for safety with balance. Modified HEP, few easy last given see ther ex. Added more LE stretching with cuing for set up and proper form with good feedback results. Pt stated taping fell off yesterday and still doing well , stated don't think need but will belt picker some for home PRN and ask if need assist in tx. Physical Therapy Plan Frequency and Duration Frequency of Treatment 2x/Week Duration of Treatment 8 wks Plan of Care Start Date 11/10/19 Plan of Care End Date 01/09/20 Therapeutic Interventions Therapeutic Interventions Aquatic Therapy,Gait Training, Home Exercise Program,Manual Therapy,Neuromuscular Re- education,Orthotic/Prosthetic Management,Patient/Caregiver Education,Self-Care/Home Management,Taping,Therapeutic Activities,Therapeutic Exercises Modalities Cold Pack/Ice Massage,Electric Stimulation,Hot Packs, Infrared Therapy,Iontophoresis ,Ultrasound Next Visit Focus/Plan Next Note Type Treatment Note Next Visit Plan Assess response to last session: flexibility, band walk, TKE HEP. Next tx review HEP, HS curl gentle ther ex for strengthening and flexibility.
--- NOTE | 2019-11-17 11:44 | PT.OTN ---
Current Diagnoses Pain in left knee (11/17/19) Physical Therapy Treatment Note PT-OP-A Visit Information Start: 11/09/19 08:07 Freq: Status: Active Protocol: Document 11/17/19 09:03 [facility] (Rec: 11/17/19 09:44 [facility] [id number]) Out-Patient Physical Therapy Visit Information Visit Information Visit Type Treatment Note Visit Start Time 09:03 Visit Stop Time 09:47 Total Visit Minutes 44 Visit Number 3 Number of FILTERER Visits 0 PT-OP-B Current Condition Start: 11/09/19 08:07 Freq: Status: Active Protocol: Document 11/10/19 09:05 SAK (Rec: 11/10/19 09:08 SAK [id number]) Current Condition History of Current Condition Onset Date 09/26/19 Current Complaints left knee pain History of Current Condition walking dog, dog went after animal, pulled hard and felt immediate pain in his knee, like maybe it hyperextended. Patient reports pain bottom of kneecap and lateral knee, leg feels loose, sometimes sensation of cracking. Has tried several knee braces, neoprene most helpful but hasn 't worn for awhile due to reported swelling when he wears. Denies leg giving way though does report that it appears to lock at times. Occasionally uses cane Prior Treatments and Tests x-ray negative for fractures, brace, ice (not recently) Treatment Goals Patient/Caregiver Goals Minimize pain, be able to resume prior activity level without pain Prior Functional Status Baseline Function- ADL's Independent Baseline Function- Mobility Independent Baseline Function- Gait indep, no pain Current Functional Impairments (Reported) Functional Limitations- ADL's painful Functional Limitations- Mobility/Gait painful PT-OP-C Subjective Start: 11/09/19 08:07 Freq: Status: Active Protocol: Document 11/17/19 09:03 SAK (Rec: 11/17/19 09:44 [facility] [id number]) OP-PT Subjective Patient Comments Patient Comments States did exercises this am, no problems. PT is helping per patient report. PT-OP-F Manual Assessment Start: 11/09/19 08:07 Freq: Status: Active Protocol: Document 11/10/19 09:05 SAK (Rec: 11/10/19 12:07 SAK [id number]) Manual Assessments Soft Tissue Assessment Soft Tissue Mobility Assessment palpable soft tissue tightness left quad, IT band left Joint Mobility Assessment Joint Mobility Assessment decreased patellofemoral mobility all directions PT-OP-G Mobility & Gait Start: 11/09/19 08:07 Freq: Status: Active Protocol: Document 11/10/19 09:05 SAK (Rec: 11/10/19 12:07 SAK [id number]) OP Gait Assessment Gait Gait Assistance Required: Independent Assistive Devices Assistive Device None Gait Deviations General Gait Pattern Antalgic Factors Limiting Gait Function Factors Limiting Gait Function Pain Stair Climbing Evaluation Technique/Endurance Stair Climbing Technique Step to Step Comments Stair Climbing Comments painful PT-OP-H Neuro Start: 11/09/19 08:07 Freq: Status: Active Protocol: Document 11/10/19 09:05 SAK (Rec: 11/10/19 12:07 SAK [id number]) Sensation Evaluation Gross Sensation Gross Sensation WNL PT-OP-J Posture/Palpation/Skin Start: 11/09/19 08:07 Freq: Status: Active Protocol: Document 11/10/19 09:05 SAK (Rec: 11/10/19 12:07 SAK [id number]) Posture Evaluation Position Standing Weight Distribution Weight Shifted Right Knee Posture (L) Genu Varus,(R) Genu Varus Ankle/Foot Posture (L) Neutral,(R) Neutral Palpation Assessment Location left knee Palpation Location infrapellar, lateral patellar region Palpation Findings Edema,Soft Tissue Tightness, Tenderness Skin Assessment Edema Assessment left knee Edema Type Non-Pitting Edema Degree 2+ Subjective Edema Description Tightness Comments no erythema PT-OP-K Range of Motion Start: 11/09/19 08:07 Freq: Status: Active Protocol: Document 11/10/19 09:05 SAK (Rec: 11/10/19 12:07 SAK [id number]) Knee Goniometric Range of Motion Knee Left Knee ROM WFL No Flexion Active (degrees) 98 Extension Active (degrees) 0 Right Knee ROM WFL Yes Knee ROM Limitations Knee ROM Limitations Soft Tissue Tightness,Swelling Ankle and Foot Goniometric Range of Motion Ankle and Foot christofer Ankle/Foot ROM WFL Yes PT-OP-L Special Tests Start: 11/09/19 08:07 Freq: Status: Active Protocol: Document 11/10/19 09:05 SAK (Rec: 11/10/19 12:07 SAK [id number]) Special Tests Knee Special Tests Varus- 25 Degrees Test Results negative Valgus- 25 Degrees Test Results negative Patellar Grind Test Test Results negative Posterior Draw Test Results negative Anterior Draw Test Results negative PT-OP-M Strength Start: 11/09/19 08:07 Freq: Status: Active Protocol: Document 11/10/19 09:05 [facility] (Rec: 11/10/19 16:05 [facility] [id number]) Hip Strength Hip Manual Muscle Testing Left Flexion (L2) 4+ Good+ Extension (S1) 4 Good Abduction 4+ Good+ Right Flexion (L2) 4+ Good+ Extension (S1) 4 Good Abduction 4+ Good+ Knee Strength Knee Manual Muscle Testing Left Flexion (S2) 4- Good- Extension (L3) 4 Good Right Flexion (S2) 5 Normal Extension (L3) 5 Normal PT-OP-Q Treatments Start: 11/09/19 08:07 Freq: Status: Active Protocol: Document 11/17/19 09:03 [facility] (Rec: 11/17/19 09:44 [facility] [id number]) Cardio Equipment Recumbent Stepper (Sci-Fit) Duration (Minutes) 5 Resistance 2 Other cues for neutral LE alignment Bicycle (Upright) Duration (Minutes) 5 Resistance 8 Seat Position 5 Gym Equipment Cable Column (Body Solid) hamstring curl Details christofer Resistance 50 Reps/Time 10x2 Shuttle Recovery Unilateral Squats Resistance 62 Shuttle Recovery Platform Stable Bilateral Squats Resistance 62, 75 Shuttle Recovery Platform Stable Therapeutic Exercises Supine Exercises alix stretch w/ strap Side left Equipment Used strap Reps/Minutes 60 x2 Comments this feels really good, will do this more at home ITB stretch Side bilateral Reps/Minutes 30 x2 HS stretch w/ stra p Side bilateral Reps/Minutes 60 sec x2 SLR Side left Reps/Minutes 3x10 Sitting Exercises Hamstring curl Equipment Used L4 TB Reps/Minutes 10x Standing Exercises hip flexor stretch at stair Side bilateral Equipment Used rail Reps/Minutes 30 x2 Comments cued upright posture and anterior hip forward and depress toward floor calf stretch Side bilateral Reps/Minutes 30 x3 Comments cued no hyper knee extension eccentric calf raise Side bilateral Equipment Used Rail, 6 step Reps/Minutes x10 Comments cued awareness soft knee and no hyper extension TKE Comments HEP PT-OP-R Modalities Start: 11/09/19 08:07 Freq: Status: Active Protocol: Document 11/10/19 09:05 [facility] (Rec: 11/10/19 16:05 [facility] [id number]) Electric Stimulation Electric Stimulation Interferential Current (IFC) Body Location left knee Duration (Minutes) 12 Intensity 17 Target/Sweep Sweep Patient Position Hooklying Combined With Heat/Cold Cold Pack PT-OP-T Assessment and Plan Start: 11/09/19 08:07 Freq: Status: Active Protocol: Document 11/17/19 09:03 [facility] (Rec: 11/17/19 09:44 [facility] [id number]) Physical Therapy Assessment Goals Three Impairment antalgic gait Custodial Goal (LTG) Patient able to ambulate without limp and with step over step gait on stairs LTG Duration 01/09/20 Two Impairment weakness left knee Principal Associate Goal (LTG) strength left knee 5/5 to allow patient to return to usual activities LTG Duration 01/09/20 One Impairment pain left knee limiting patient mobility Principal Associate Goal (LTG) decrease pain to no greater than 1/10 during all usual activity including taking his dog for a walk LTG Duration 01/09/20 Assessment Summary Assessment Added hamstring curl with theraband to HEP, shuttle leg press christofer and unil; should be able to increase resistance next session at least with christofer . Cues for neutral LE alignment with LE's. Physical Therapy Plan Frequency and Duration Frequency of Treatment 2x/Week Duration of Treatment 8 wks Plan of Care Start Date 11/10/19 Plan of Care End Date 01/09/20 Therapeutic Interventions Therapeutic Interventions Aquatic Therapy,Gait Training, Home Exercise Program,Manual Therapy,Neuromuscular Re- education,Orthotic/Prosthetic Management,Patient/Caregiver Education,Self-Care/Home Management,Taping,Therapeutic Activities,Therapeutic Exercises Modalities Cold Pack/Ice Massage,Electric Stimulation,Hot Packs, Infrared Therapy,Iontophoresis ,Ultrasound Next Visit Focus/Plan Next Note Type Treatment Note Next Visit Plan Continue progression of ther ex for LE strengthening and flexibility. Increase resistance with christofer leg press, add ball between knees. Add squats, cues for correct form.
--- NOTE | 2019-11-23 09:04 | PT.OTN ---
Current Diagnoses Pain in left knee (11/23/19) Physical Therapy Treatment Note PT-OP-A Visit Information Start: 11/09/19 08:07 Freq: Status: Active Protocol: Document 11/23/19 08:10 SP (Rec: 11/23/19 11:58 SP [id number]) Out-Patient Physical Therapy Visit Information Visit Information Visit Type Treatment Note Visit Start Time 08:10 Visit Stop Time 09:04 Total Visit Minutes 54 Visit Number 4 Number of CARE TEAM COORDINATOR SCHEDULER Visits 1 PT-OP-B Current Condition Start: 11/09/19 08:07 Freq: Status: Active Protocol: Document 11/10/19 09:05 SAK (Rec: 11/10/19 09:08 SAK [id number]) Current Condition History of Current Condition Onset Date 09/26/19 Current Complaints left knee pain History of Current Condition walking dog, dog went after animal, pulled hard and felt immediate pain in his knee, like maybe it hyperextended. Patient reports pain bottom of kneecap and lateral knee, leg feels loose, sometimes sensation of cracking. Has tried several knee braces, neoprene most helpful but hasn 't worn for awhile due to reported swelling when he wears. Denies leg giving way though does report that it appears to lock at times. Occasionally uses cane Prior Treatments and Tests x-ray negative for fractures, brace, ice (not recently) Treatment Goals Patient/Caregiver Goals Minimize pain, be able to resume prior activity level without pain Prior Functional Status Baseline Function- ADL's Independent Baseline Function- Mobility Independent Baseline Function- Gait indep, no pain Current Functional Impairments (Reported) Functional Limitations- ADL's painful Functional Limitations- Mobility/Gait painful PT-OP-C Subjective Start: 11/09/19 08:07 Freq: Status: Active Protocol: Document 11/23/19 08:10 SP (Rec: 11/23/19 11:58 SP [id number]) OP-PT Subjective Patient Comments Patient Comments Pt reported does have mild pain medial and inferior patella especially walking on declines but very tolerable. Pt reported is able now to go further distance out for walks with no pain in L hip from bursitis past 10 yrs and more conscious of alignment just from the past 2 exercises and stretching given during PT. Patient Reported Progress Improving PT-OP-F Manual Assessment Start: 11/09/19 08:07 Freq: Status: Active Protocol: Document 11/10/19 09:05 SAK (Rec: 11/10/19 12:07 SAK [id number]) Manual Assessments Soft Tissue Assessment Soft Tissue Mobility Assessment palpable soft tissue tightness left quad, IT band left Joint Mobility Assessment Joint Mobility Assessment decreased patellofemoral mobility all directions PT-OP-G Mobility & Gait Start: 11/09/19 08:07 Freq: Status: Active Protocol: Document 11/10/19 09:05 SAK (Rec: 11/10/19 12:07 SAK [id number]) OP Gait Assessment Gait Gait Assistance Required: Independent Assistive Devices Assistive Device None Gait Deviations General Gait Pattern Antalgic Factors Limiting Gait Function Factors Limiting Gait Function Pain Stair Climbing Evaluation Technique/Endurance Stair Climbing Technique Step to Step Comments Stair Climbing Comments painful PT-OP-H Neuro Start: 11/09/19 08:07 Freq: Status: Active Protocol: Document 11/10/19 09:05 SAK (Rec: 11/10/19 12:07 SAK [id number]) Sensation Evaluation Gross Sensation Gross Sensation WNL PT-OP-J Posture/Palpation/Skin Start: 11/09/19 08:07 Freq: Status: Active Protocol: Document 11/10/19 09:05 SAK (Rec: 11/10/19 12:07 SAK [id number]) Posture Evaluation Position Standing Weight Distribution Weight Shifted Right Knee Posture (L) Genu Varus,(R) Genu Varus Ankle/Foot Posture (L) Neutral,(R) Neutral Palpation Assessment Location left knee Palpation Location infrapellar, lateral patellar region Palpation Findings Edema,Soft Tissue Tightness, Tenderness Skin Assessment Edema Assessment left knee Edema Type Non-Pitting Edema Degree 2+ Subjective Edema Description Tightness Comments no erythema PT-OP-K Range of Motion Start: 11/09/19 08:07 Freq: Status: Active Protocol: Document 11/10/19 09:05 SAK (Rec: 11/10/19 12:07 SAK [id number]) Knee Goniometric Range of Motion Knee Left Knee ROM WFL No Flexion Active (degrees) 98 Extension Active (degrees) 0 Right Knee ROM WFL Yes Knee ROM Limitations Knee ROM Limitations Soft Tissue Tightness,Swelling Ankle and Foot Goniometric Range of Motion Ankle and Foot christofer Ankle/Foot ROM WFL Yes PT-OP-L Special Tests Start: 11/09/19 08:07 Freq: Status: Active Protocol: Document 11/10/19 09:05 SAK (Rec: 11/10/19 12:07 SAK [id number]) Special Tests Knee Special Tests Varus- 25 Degrees Test Results negative Valgus- 25 Degrees Test Results negative Patellar Grind Test Test Results negative Posterior Draw Test Results negative Anterior Draw Test Results negative PT-OP-M Strength Start: 11/09/19 08:07 Freq: Status: Active Protocol: Document 11/10/19 09:05 SAK (Rec: 11/10/19 16:05 SAK [id number]) Hip Strength Hip Manual Muscle Testing Left Flexion (L2) 4+ Good+ Extension (S1) 4 Good Abduction 4+ Good+ Right Flexion (L2) 4+ Good+ Extension (S1) 4 Good Abduction 4+ Good+ Knee Strength Knee Manual Muscle Testing Left Flexion (S2) 4- Good- Extension (L3) 4 Good Right Flexion (S2) 5 Normal Extension (L3) 5 Normal PT-OP-Q Treatments Start: 11/09/19 08:07 Freq: Status: Active Protocol: Document 11/23/19 08:10 SP (Rec: 11/23/19 11:58 SP [id number]) Cardio Equipment Recumbent Stepper (Sci-Fit) Duration (Minutes) 6 Resistance 2.6 Other cues for neutral LE alignment Gym Equipment Cable Column (Body Solid) ABD/ ADD machine Resistance 20 Reps/Time 2x10 each hamstring curl Details christofer Resistance 50 Reps/Time 20x2 LE ext Resistance 40 Reps/Time 2x10 Therapeutic Exercises Sitting Exercises HS stretch Side left Reps/Minutes 30 x3 HS/ calf stick rolling Side bilateral Reps/Minutes 1 min Standing Exercises sit to stands Standing Exercise Name progress to eccentric taps when able. Equipment Used 18 chair Reps/Minutes 2x8 Comments cued, hip hinge, upright posture and knee alignment with and behind toes eccentric step down Side bilateral Equipment Used 6step, rail contact Reps/Minutes 2x5 Comments cued upright posture and knee alignment with and behind toes crab walk f/b/s Resistance Tb #2 at ankles Reps/Minutes 10 ft x3 laps each PT-OP-R Modalities Start: 11/09/19 08:07 Freq: Status: Active Protocol: Document 11/10/19 09:05 SAK (Rec: 11/10/19 16:05 SAK [id number]) Electric Stimulation Electric Stimulation Interferential Current (IFC) Body Location left knee Duration (Minutes) 12 Intensity 17 Target/Sweep Sweep Patient Position Hooklying Combined With Heat/Cold Cold Pack PT-OP-T Assessment and Plan Start: 11/09/19 08:07 Freq: Status: Active Protocol: Document 11/23/19 08:10 SP (Rec: 11/23/19 11:58 SP [id number]) Physical Therapy Assessment Goals Three Impairment antalgic gait Financial Recruiter Goal (LTG) Patient able to ambulate without limp and with step over step gait on stairs LTG Duration 01/09/20 Two Impairment weakness left knee Prison Goal (LTG) strength left knee 5/5 to allow patient to return to usual activities LTG Duration 01/09/20 One Impairment pain left knee limiting patient mobility Prison Goal (LTG) decrease pain to no greater than 1/10 during all usual activity including taking his dog for a walk LTG Duration 01/09/20 Assessment Summary Assessment Pt is making gains, noted no pain in L hip anymore has had in 10 yrs since starting PT, decreased pain with awareness of knee and ankle alignment. Added to HEP crab walk f/b today, sit to stands and step up/downs to reinforce knee alignment and glut facilitation strengthening with good results of no pain. Also incorporated LE ext and ABD/ADD due to wanting to get back to gym and equipment can utilize for strengthening. Physical Therapy Plan Frequency and Duration Frequency of Treatment 2x/Week Duration of Treatment 8 wks Plan of Care Start Date 11/10/19 Plan of Care End Date 01/09/20 Therapeutic Interventions Therapeutic Interventions Aquatic Therapy,Gait Training, Home Exercise Program,Manual Therapy,Neuromuscular Re- education,Orthotic/Prosthetic Management,Patient/Caregiver Education,Self-Care/Home Management,Taping,Therapeutic Activities,Therapeutic Exercises Modalities Cold Pack/Ice Massage,Electric Stimulation,Hot Packs, Infrared Therapy,Iontophoresis ,Ultrasound Next Visit Focus/Plan Next Note Type Treatment Note Next Visit Plan Continue progression of ther ex for LE strengthening and flexibility. Increase resistance with christofer leg press, add ball between knees. Add squats, cues for correct form.
--- NOTE | 2019-11-25 08:15 | PT.OTN ---
Current Diagnoses Pain in left knee (11/25/19) Physical Therapy Treatment Note PT-OP-A Visit Information Start: 11/09/19 08:07 Freq: Status: Active Protocol: Document 11/25/19 07:31 SP (Rec: 11/25/19 08:29 SP [id number]) Out-Patient Physical Therapy Visit Information Visit Information Visit Type Treatment Note Visit Start Time 07:31 Visit Stop Time 08:15 Total Visit Minutes 44 Visit Number 5 Number of WIG MAKER Visits 2 PT-OP-B Current Condition Start: 11/09/19 08:07 Freq: Status: Active Protocol: Document 11/10/19 09:05 SAK (Rec: 11/10/19 09:08 SAK [id number]) Current Condition History of Current Condition Onset Date 09/26/19 Current Complaints left knee pain History of Current Condition walking dog, dog went after animal, pulled hard and felt immediate pain in his knee, like maybe it hyperextended. Patient reports pain bottom of kneecap and lateral knee, leg feels loose, sometimes sensation of cracking. Has tried several knee braces, neoprene most helpful but hasn 't worn for awhile due to reported swelling when he wears. Denies leg giving way though does report that it appears to lock at times. Occasionally uses cane Prior Treatments and Tests x-ray negative for fractures, brace, ice (not recently) Treatment Goals Patient/Caregiver Goals Minimize pain, be able to resume prior activity level without pain Prior Functional Status Baseline Function- ADL's Independent Baseline Function- Mobility Independent Baseline Function- Gait indep, no pain Current Functional Impairments (Reported) Functional Limitations- ADL's painful Functional Limitations- Mobility/Gait painful PT-OP-C Subjective Start: 11/09/19 08:07 Freq: Status: Active Protocol: Document 11/25/19 07:31 SP (Rec: 11/25/19 08:29 SP [id number]) OP-PT Subjective Patient Comments Patient Comments Pt reported PT-OP-F Manual Assessment Start: 11/09/19 08:07 Freq: Status: Active Protocol: Document 11/10/19 09:05 SAK (Rec: 11/10/19 12:07 SAK [id number]) Manual Assessments Soft Tissue Assessment Soft Tissue Mobility Assessment palpable soft tissue tightness left quad, IT band left Joint Mobility Assessment Joint Mobility Assessment decreased patellofemoral mobility all directions PT-OP-G Mobility & Gait Start: 11/09/19 08:07 Freq: Status: Active Protocol: Document 11/10/19 09:05 SAK (Rec: 11/10/19 12:07 SAK [id number]) OP Gait Assessment Gait Gait Assistance Required: Independent Assistive Devices Assistive Device None Gait Deviations General Gait Pattern Antalgic Factors Limiting Gait Function Factors Limiting Gait Function Pain Stair Climbing Evaluation Technique/Endurance Stair Climbing Technique Step to Step Comments Stair Climbing Comments painful PT-OP-H Neuro Start: 11/09/19 08:07 Freq: Status: Active Protocol: Document 11/10/19 09:05 SAK (Rec: 11/10/19 12:07 SAK [id number]) Sensation Evaluation Gross Sensation Gross Sensation WNL PT-OP-J Posture/Palpation/Skin Start: 11/09/19 08:07 Freq: Status: Active Protocol: Document 11/10/19 09:05 SAK (Rec: 11/10/19 12:07 SAK [id number]) Posture Evaluation Position Standing Weight Distribution Weight Shifted Right Knee Posture (L) Genu Varus,(R) Genu Varus Ankle/Foot Posture (L) Neutral,(R) Neutral Palpation Assessment Location left knee Palpation Location infrapellar, lateral patellar region Palpation Findings Edema,Soft Tissue Tightness, Tenderness Skin Assessment Edema Assessment left knee Edema Type Non-Pitting Edema Degree 2+ Subjective Edema Description Tightness Comments no erythema PT-OP-K Range of Motion Start: 11/09/19 08:07 Freq: Status: Active Protocol: Document 11/10/19 09:05 SAK (Rec: 11/10/19 12:07 SAK [id number]) Knee Goniometric Range of Motion Knee Left Knee ROM WFL No Flexion Active (degrees) 98 Extension Active (degrees) 0 Right Knee ROM WFL Yes Knee ROM Limitations Knee ROM Limitations Soft Tissue Tightness,Swelling Ankle and Foot Goniometric Range of Motion Ankle and Foot christofer Ankle/Foot ROM WFL Yes PT-OP-L Special Tests Start: 11/09/19 08:07 Freq: Status: Active Protocol: Document 11/10/19 09:05 SAK (Rec: 11/10/19 12:07 SAK [id number]) Special Tests Knee Special Tests Varus- 25 Degrees Test Results negative Valgus- 25 Degrees Test Results negative Patellar Grind Test Test Results negative Posterior Draw Test Results negative Anterior Draw Test Results negative PT-OP-M Strength Start: 11/09/19 08:07 Freq: Status: Active Protocol: Document 11/10/19 09:05 SAK (Rec: 11/10/19 16:05 SAK [id number]) Hip Strength Hip Manual Muscle Testing Left Flexion (L2) 4+ Good+ Extension (S1) 4 Good Abduction 4+ Good+ Right Flexion (L2) 4+ Good+ Extension (S1) 4 Good Abduction 4+ Good+ Knee Strength Knee Manual Muscle Testing Left Flexion (S2) 4- Good- Extension (L3) 4 Good Right Flexion (S2) 5 Normal Extension (L3) 5 Normal PT-OP-Q Treatments Start: 11/09/19 08:07 Freq: Status: Active Protocol: Document 11/25/19 07:31 SP (Rec: 11/25/19 08:29 SP [id number]) Cardio Equipment Recumbent Stepper (Sci-Fit) Duration (Minutes) 8 Resistance 2.6> 6.0 Seat Position 12 Other 41 rpms, 1.08 miles Gym Equipment Shuttle Recovery Unilateral Squats Resistance 62>75 Shuttle Recovery Platform Stable Reps/Time 2x10 Bilateral Squats Resistance 112 Shuttle Recovery Platform Stable Reps/Time 2x15 Shuttle Balance blue clips Details WBOS, NBOS, stagger Reps/Duration 8 min Comments EO 1. wt shift 2. head turn 3. EC Unstable red clips intiallly. Therapeutic Exercises Supine Exercises ITB stretch Side bilateral Reps/Minutes 30 x2 Comments review HEP HS stretch w/ stra p Side bilateral Reps/Minutes 60 sec x2 Comments review HEP Standing Exercises hip abd, ext Tb Standing Exercise Name possibly add next tx eccentric step down Standing Exercise Name retro step back (review HEP) Side bilateral Equipment Used 6step, rail contact Reps/Minutes 2x10 Comments cued upright posture and knee alignment with and behind toes eccentric calf raise Side bilateral Equipment Used Rail, 6 step Reps/Minutes x10 Comments cued awareness soft knee and no hyper extension PT-OP-R Modalities Start: 11/09/19 08:07 Freq: Status: Active Protocol: Document 11/10/19 09:05 SAK (Rec: 11/10/19 16:05 SAK [id number]) Electric Stimulation Electric Stimulation Interferential Current (IFC) Body Location left knee Duration (Minutes) 12 Intensity 17 Target/Sweep Sweep Patient Position Hooklying Combined With Heat/Cold Cold Pack PT-OP-T Assessment and Plan Start: 11/09/19 08:07 Freq: Status: Active Protocol: Document 11/25/19 07:31 SP (Rec: 11/25/19 08:29 SP [id number]) Physical Therapy Assessment Goals Three Impairment antalgic gait Telemarketing Fundraiser Goal (LTG) Patient able to ambulate without limp and with step over step gait on stairs LTG Duration 01/09/20 Two Impairment weakness left knee Telemarketing Fundraiser Goal (LTG) strength left knee 5/5 to allow patient to return to usual activities LTG Duration 01/09/20 One Impairment pain left knee limiting patient mobility Shelter Goal (LTG) decrease pain to no greater than 1/10 during all usual activity including taking his dog for a walk LTG Duration 01/09/20 Assessment Summary Assessment Pt tolerated increase in resistance and reps with all ther ex standing and shuttle recovery today and intiated shuttle balance intially red clips but to challenging, unsteady improved wiht blue clips. Pt had made great gains with stabilization. Next tx add hip abductor strengthening to assist balance for uneven surfaces and work toward obstacle course. Physical Therapy Plan Frequency and Duration Frequency of Treatment 2x/Week Duration of Treatment 8 wks Plan of Care Start Date 11/10/19 Plan of Care End Date 01/09/20 Therapeutic Interventions Therapeutic Interventions Aquatic Therapy,Gait Training, Home Exercise Program,Manual Therapy,Neuromuscular Re- education,Orthotic/Prosthetic Management,Patient/Caregiver Education,Self-Care/Home Management,Taping,Therapeutic Activities,Therapeutic Exercises Modalities Cold Pack/Ice Massage,Electric Stimulation,Hot Packs, Infrared Therapy,Iontophoresis ,Ultrasound Next Visit Focus/Plan Next Note Type Treatment Note Next Visit Plan Assess response to last tx, see ex. Next tx add ankle TB ( requested for self at home), standing hip abd TB, clam shell, and continue shuttle balance blue clips. Continue per PT POC: progression of ther ex for LE strengthening and flexibility. Increase resistance with christofer leg press, add ball between knees. Add squats, cues for correct form.
--- NOTE | 2019-11-30 08:09 | PT.OTN ---
Current Diagnoses Pain in left knee (11/30/19) Physical Therapy Treatment Note PT-OP-A Visit Information Start: 11/09/19 08:07 Freq: Status: Active Protocol: Document 11/30/19 07:30 MB (Rec: 11/30/19 08:09 MB [id number]) Out-Patient Physical Therapy Visit Information Visit Information Visit Type Treatment Note Visit Start Time 07:30 Visit Stop Time 08:08 Total Visit Minutes 38 Visit Number 6 Number of CORN SHELLER OPERATOR Visits 0 PT-OP-B Current Condition Start: 11/09/19 08:07 Freq: Status: Active Protocol: Document 11/10/19 09:05 SAK (Rec: 11/10/19 09:08 SAK [id number]) Current Condition History of Current Condition Onset Date 09/26/19 Current Complaints left knee pain History of Current Condition walking dog, dog went after animal, pulled hard and felt immediate pain in his knee, like maybe it hyperextended. Patient reports pain bottom of kneecap and lateral knee, leg feels loose, sometimes sensation of cracking. Has tried several knee braces, neoprene most helpful but hasn 't worn for awhile due to reported swelling when he wears. Denies leg giving way though does report that it appears to lock at times. Occasionally uses cane Prior Treatments and Tests x-ray negative for fractures, brace, ice (not recently) Treatment Goals Patient/Caregiver Goals Minimize pain, be able to resume prior activity level without pain Prior Functional Status Baseline Function- ADL's Independent Baseline Function- Mobility Independent Baseline Function- Gait indep, no pain Current Functional Impairments (Reported) Functional Limitations- ADL's painful Functional Limitations- Mobility/Gait painful PT-OP-C Subjective Start: 11/09/19 08:07 Freq: Status: Active Protocol: Document 11/30/19 07:30 MB (Rec: 11/30/19 08:09 MB [id number]) OP-PT Subjective Patient Comments Patient Comments The weather was good so I kind of overdid it in the yard . This made my knee a little sore. PT-OP-F Manual Assessment Start: 11/09/19 08:07 Freq: Status: Active Protocol: Document 11/10/19 09:05 SAK (Rec: 11/10/19 12:07 SAK [id number]) Manual Assessments Soft Tissue Assessment Soft Tissue Mobility Assessment palpable soft tissue tightness left quad, IT band left Joint Mobility Assessment Joint Mobility Assessment decreased patellofemoral mobility all directions PT-OP-G Mobility & Gait Start: 11/09/19 08:07 Freq: Status: Active Protocol: Document 11/10/19 09:05 [facility] (Rec: 11/10/19 12:07 SAK [id number]) OP Gait Assessment Gait Gait Assistance Required: Independent Assistive Devices Assistive Device None Gait Deviations General Gait Pattern Antalgic Factors Limiting Gait Function Factors Limiting Gait Function Pain Stair Climbing Evaluation Technique/Endurance Stair Climbing Technique Step to Step Comments Stair Climbing Comments painful PT-OP-H Neuro Start: 11/09/19 08:07 Freq: Status: Active Protocol: Document 11/10/19 09:05 SAK (Rec: 11/10/19 12:07 SAK [id number]) Sensation Evaluation Gross Sensation Gross Sensation WNL PT-OP-J Posture/Palpation/Skin Start: 11/09/19 08:07 Freq: Status: Active Protocol: Document 11/10/19 09:05 [facility] (Rec: 11/10/19 12:07 [facility] [id number]) Posture Evaluation Position Standing Weight Distribution Weight Shifted Right Knee Posture (L) Genu Varus,(R) Genu Varus Ankle/Foot Posture (L) Neutral,(R) Neutral Palpation Assessment Location left knee Palpation Location infrapellar, lateral patellar region Palpation Findings Edema,Soft Tissue Tightness, Tenderness Skin Assessment Edema Assessment left knee Edema Type Non-Pitting Edema Degree 2+ Subjective Edema Description Tightness Comments no erythema PT-OP-K Range of Motion Start: 11/09/19 08:07 Freq: Status: Active Protocol: Document 11/10/19 09:05 [facility] (Rec: 11/10/19 12:07 SAK [id number]) Knee Goniometric Range of Motion Knee Left Knee ROM WFL No Flexion Active (degrees) 98 Extension Active (degrees) 0 Right Knee ROM WFL Yes Knee ROM Limitations Knee ROM Limitations Soft Tissue Tightness,Swelling Ankle and Foot Goniometric Range of Motion Ankle and Foot christofer Ankle/Foot ROM WFL Yes PT-OP-L Special Tests Start: 11/09/19 08:07 Freq: Status: Active Protocol: Document 11/10/19 09:05 [facility] (Rec: 11/10/19 12:07 SAK [id number]) Special Tests Knee Special Tests Varus- 25 Degrees Test Results negative Valgus- 25 Degrees Test Results negative Patellar Grind Test Test Results negative Posterior Draw Test Results negative Anterior Draw Test Results negative PT-OP-M Strength Start: 11/09/19 08:07 Freq: Status: Active Protocol: Document 11/10/19 09:05 [facility] (Rec: 11/10/19 16:05 [facility] [id number]) Hip Strength Hip Manual Muscle Testing Left Flexion (L2) 4+ Good+ Extension (S1) 4 Good Abduction 4+ Good+ Right Flexion (L2) 4+ Good+ Extension (S1) 4 Good Abduction 4+ Good+ Knee Strength Knee Manual Muscle Testing Left Flexion (S2) 4- Good- Extension (L3) 4 Good Right Flexion (S2) 5 Normal Extension (L3) 5 Normal PT-OP-Q Treatments Start: 11/09/19 08:07 Freq: Status: Active Protocol: Document 11/30/19 07:30 MB (Rec: 11/30/19 08:09 MB [id number]) Cardio Equipment Bicycle (Upright) Duration (Minutes) 10 Resistance 8 Seat Position 6 Manual Therapy Treatment Other Other Manual Treatments LLE: STM quads with rolling pin, patellar mobs, patellar lift, STM vastus lateralis, TFL and ITB positional release KT black with c strip under patella and I strips medial and lateral knee PT-OP-R Modalities Start: 11/09/19 08:07 Freq: Status: Active Protocol: Document 11/10/19 09:05 [facility] (Rec: 11/10/19 16:05 [facility] [id number]) Electric Stimulation Electric Stimulation Interferential Current (IFC) Body Location left knee Duration (Minutes) 12 Intensity 17 Target/Sweep Sweep Patient Position Hooklying Combined With Heat/Cold Cold Pack PT-OP-T Assessment and Plan Start: 11/09/19 08:07 Freq: Status: Active Protocol: Document 11/30/19 07:30 MB (Rec: 11/30/19 08:09 MB [id number]) Physical Therapy Assessment Goals Three Impairment antalgic gait Usp Goal (LTG) Patient able to ambulate without limp and with step over step gait on stairs LTG Duration 01/09/20 Two Impairment weakness left knee Usp Goal (LTG) strength left knee 5/5 to allow patient to return to usual activities LTG Duration 01/09/20 One Impairment pain left knee limiting patient mobility Usp Goal (LTG) decrease pain to no greater than 1/10 during all usual activity including taking his dog for a walk LTG Duration 01/09/20 Assessment Summary Assessment Manual work today to assist with patella position, quad tension and pain. Upright bike feels better today. Con't progression per POC. Physical Therapy Plan Frequency and Duration Frequency of Treatment 2x/Week Duration of Treatment 8 wks Plan of Care Start Date 11/10/19 Plan of Care End Date 01/09/20 Therapeutic Interventions Therapeutic Interventions Aquatic Therapy,Gait Training, Home Exercise Program,Manual Therapy,Neuromuscular Re- education,Orthotic/Prosthetic Management,Patient/Caregiver Education,Self-Care/Home Management,Taping,Therapeutic Activities,Therapeutic Exercises Modalities Cold Pack/Ice Massage,Electric Stimulation,Hot Packs, Infrared Therapy,Iontophoresis ,Ultrasound Next Visit Focus/Plan Next Note Type Treatment Note Next Visit Plan Con't per previous POC: Next tx add ankle TB (requested for self at home), standing hip abd TB, clam shell, and continue shuttle balance blue clips. Continue per PT POC: progression of ther ex for LE strengthening and flexibility. Increase resistance with christofer leg press, add ball between knees. Add squats, cues for correct form.
--- NOTE | 2019-12-03 09:45 | PT.OTN ---
Current Diagnoses Pain in left knee (12/03/19) Physical Therapy Treatment Note PT-OP-A Visit Information Start: 11/09/19 08:07 Freq: Status: Active Protocol: Document 12/03/19 09:03 MA (Rec: 12/03/19 09:04 MA [id number]) Out-Patient Physical Therapy Visit Information Visit Information Visit Type Treatment Note Visit Start Time 09:00 Visit Stop Time 09:43 Total Visit Minutes 43 Visit Number 7 Number of LICENSED MORTICIAN Visits 1 PT-OP-B Current Condition Start: 11/09/19 08:07 Freq: Status: Active Protocol: Document 11/10/19 09:05 SAK (Rec: 11/10/19 09:08 SAK [id number]) Current Condition History of Current Condition Onset Date 09/26/19 Current Complaints left knee pain History of Current Condition walking dog, dog went after animal, pulled hard and felt immediate pain in his knee, like maybe it hyperextended. Patient reports pain bottom of kneecap and lateral knee, leg feels loose, sometimes sensation of cracking. Has tried several knee braces, neoprene most helpful but hasn 't worn for awhile due to reported swelling when he wears. Denies leg giving way though does report that it appears to lock at times. Occasionally uses cane Prior Treatments and Tests x-ray negative for fractures, brace, ice (not recently) Treatment Goals Patient/Caregiver Goals Minimize pain, be able to resume prior activity level without pain Prior Functional Status Baseline Function- ADL's Independent Baseline Function- Mobility Independent Baseline Function- Gait indep, no pain Current Functional Impairments (Reported) Functional Limitations- ADL's painful Functional Limitations- Mobility/Gait painful PT-OP-C Subjective Start: 11/09/19 08:07 Freq: Status: Active Protocol: Document 12/03/19 09:02 MA (Rec: 12/03/19 09:03 MA [id number]) OP-PT Subjective Patient Comments Patient Comments Pt reports having no pain recently except when he did yard work last week. Patient Reported Progress Improving PT-OP-F Manual Assessment Start: 11/09/19 08:07 Freq: Status: Active Protocol: Document 11/10/19 09:05 SAK (Rec: 11/10/19 12:07 SAK [id number]) Manual Assessments Soft Tissue Assessment Soft Tissue Mobility Assessment palpable soft tissue tightness left quad, IT band left Joint Mobility Assessment Joint Mobility Assessment decreased patellofemoral mobility all directions PT-OP-G Mobility & Gait Start: 11/09/19 08:07 Freq: Status: Active Protocol: Document 11/10/19 09:05 SAK (Rec: 11/10/19 12:07 SAK [id number]) OP Gait Assessment Gait Gait Assistance Required: Independent Assistive Devices Assistive Device None Gait Deviations General Gait Pattern Antalgic Factors Limiting Gait Function Factors Limiting Gait Function Pain Stair Climbing Evaluation Technique/Endurance Stair Climbing Technique Step to Step Comments Stair Climbing Comments painful PT-OP-H Neuro Start: 11/09/19 08:07 Freq: Status: Active Protocol: Document 11/10/19 09:05 SAK (Rec: 11/10/19 12:07 SAK [id number]) Sensation Evaluation Gross Sensation Gross Sensation WNL PT-OP-J Posture/Palpation/Skin Start: 11/09/19 08:07 Freq: Status: Active Protocol: Document 11/10/19 09:05 SAK (Rec: 11/10/19 12:07 SAK [id number]) Posture Evaluation Position Standing Weight Distribution Weight Shifted Right Knee Posture (L) Genu Varus,(R) Genu Varus Ankle/Foot Posture (L) Neutral,(R) Neutral Palpation Assessment Location left knee Palpation Location infrapellar, lateral patellar region Palpation Findings Edema,Soft Tissue Tightness, Tenderness Skin Assessment Edema Assessment left knee Edema Type Non-Pitting Edema Degree 2+ Subjective Edema Description Tightness Comments no erythema PT-OP-K Range of Motion Start: 11/09/19 08:07 Freq: Status: Active Protocol: Document 11/10/19 09:05 SAK (Rec: 11/10/19 12:07 SAK [id number]) Knee Goniometric Range of Motion Knee Left Knee ROM WFL No Flexion Active (degrees) 98 Extension Active (degrees) 0 Right Knee ROM WFL Yes Knee ROM Limitations Knee ROM Limitations Soft Tissue Tightness,Swelling Ankle and Foot Goniometric Range of Motion Ankle and Foot christofer Ankle/Foot ROM WFL Yes PT-OP-L Special Tests Start: 11/09/19 08:07 Freq: Status: Active Protocol: Document 11/10/19 09:05 SAK (Rec: 11/10/19 12:07 SAK [id number]) Special Tests Knee Special Tests Varus- 25 Degrees Test Results negative Valgus- 25 Degrees Test Results negative Patellar Grind Test Test Results negative Posterior Draw Test Results negative Anterior Draw Test Results negative PT-OP-M Strength Start: 11/09/19 08:07 Freq: Status: Active Protocol: Document 11/10/19 09:05 SAK (Rec: 11/10/19 16:05 SAK [id number]) Hip Strength Hip Manual Muscle Testing Left Flexion (L2) 4+ Good+ Extension (S1) 4 Good Abduction 4+ Good+ Right Flexion (L2) 4+ Good+ Extension (S1) 4 Good Abduction 4+ Good+ Knee Strength Knee Manual Muscle Testing Left Flexion (S2) 4- Good- Extension (L3) 4 Good Right Flexion (S2) 5 Normal Extension (L3) 5 Normal PT-OP-Q Treatments Start: 11/09/19 08:07 Freq: Status: Active Protocol: Document 12/03/19 09:04 MA (Rec: 12/03/19 10:32 MA [id number]) Cardio Equipment Bicycle (Upright) Duration (Minutes) 8 Resistance 6 Seat Position 6 Gym Equipment Shuttle Recovery Unilateral Squats Resistance 62 Shuttle Recovery Platform Stable Reps/Time 2x10 Bilateral Squats Resistance 112 Shuttle Recovery Platform Stable Reps/Time 2x15 Shuttle Balance blue clips Details WBOS, NBOS, EO, EC Reps/Duration 10 minutes Comments Throwing weighted ball at shuttle rebounder then working with NBOS EC 30 sec x3. Min- moderate assistance needed when EC with NBOS Therapeutic Exercises Sidelying Exercises Clamshells Side bilateral Equipment Used #4 theraband Reps/Minutes 2x10 Comments Performed 2 sets per side sidelying, one set supine abduction with TB Standing Exercises Squats Standing Exercise Name Squat Side bilateral Equipment Used Ball b/w knees Reps/Minutes 2x10 Comments one set holding bar for support, one set no support Side Steps (Abd) Standing Exercise Name Abduction Resistance #4 TB Reps/Minutes 2 laps of ballet bar Comments had more difficulty stepping left PT-OP-R Modalities Start: 11/09/19 08:07 Freq: Status: Active Protocol: Document 11/10/19 09:05 [email or web address] (Rec: 11/10/19 16:05 SAK [id number]) Electric Stimulation Electric Stimulation Interferential Current (IFC) Body Location left knee Duration (Minutes) 12 Intensity 17 Target/Sweep Sweep Patient Position Hooklying Combined With Heat/Cold Cold Pack PT-OP-T Assessment and Plan Start: 11/09/19 08:07 Freq: Status: Active Protocol: Document 12/03/19 10:49 MA (Rec: 12/03/19 10:55 MA [id number]) Physical Therapy Assessment Goals Three Impairment antalgic gait Correction Goal (LTG) Patient able to ambulate without limp and with step over step gait on stairs LTG Duration 01/09/20 Two Impairment weakness left knee Disability Services Coordinator Goal (LTG) strength left knee 5/5 to allow patient to return to usual activities LTG Duration 01/09/20 One Impairment pain left knee limiting patient mobility Disability Services Coordinator Goal (LTG) decrease pain to no greater than 1/10 during all usual activity including taking his dog for a walk LTG Duration 01/09/20 Assessment Summary Assessment Pt had no pain during exercises today and did well with new HEP exercises added- clamshells, side steps and squats with a ball. Physical Therapy Plan Frequency and Duration Frequency of Treatment 2x/Week Duration of Treatment 8 wks Plan of Care Start Date 11/10/19 Plan of Care End Date 01/09/20 Next Visit Focus/Plan Next Note Type Treatment Note Next Visit Plan Check in with how new HEP exercises went at home. Continue working on squats with ball between knees and shuttle balance, blue clips.
--- NOTE | 2019-12-06 08:15 | PT.OTN ---
Current Diagnoses Pain in left knee (12/06/19) Physical Therapy Treatment Note PT-OP-A Visit Information Start: 11/09/19 08:07 Freq: Status: Active Protocol: Document 12/06/19 07:31 SP (Rec: 12/06/19 08:19 SP [id number]) Out-Patient Physical Therapy Visit Information Visit Information Visit Type Treatment Note Visit Start Time 07:31 Visit Stop Time 08:15 Total Visit Minutes 44 Visit Number 8 Number of ASSEMBLY MACHINE SET UP MECHANIC Visits 2 PT-OP-B Current Condition Start: 11/09/19 08:07 Freq: Status: Active Protocol: Document 11/10/19 09:05 SAK (Rec: 11/10/19 09:08 SAK [id number]) Current Condition History of Current Condition Onset Date 09/26/19 Current Complaints left knee pain History of Current Condition walking dog, dog went after animal, pulled hard and felt immediate pain in his knee, like maybe it hyperextended. Patient reports pain bottom of kneecap and lateral knee, leg feels loose, sometimes sensation of cracking. Has tried several knee braces, neoprene most helpful but hasn 't worn for awhile due to reported swelling when he wears. Denies leg giving way though does report that it appears to lock at times. Occasionally uses cane Prior Treatments and Tests x-ray negative for fractures, brace, ice (not recently) Treatment Goals Patient/Caregiver Goals Minimize pain, be able to resume prior activity level without pain Prior Functional Status Baseline Function- ADL's Independent Baseline Function- Mobility Independent Baseline Function- Gait indep, no pain Current Functional Impairments (Reported) Functional Limitations- ADL's painful Functional Limitations- Mobility/Gait painful PT-OP-C Subjective Start: 11/09/19 08:07 Freq: Status: Active Protocol: Document 12/06/19 07:31 SP (Rec: 12/06/19 08:19 SP [id number]) OP-PT Subjective Patient Comments Patient Comments Pt PT-OP-F Manual Assessment Start: 11/09/19 08:07 Freq: Status: Active Protocol: Document 11/10/19 09:05 SAK (Rec: 11/10/19 12:07 SAK [id number]) Manual Assessments Soft Tissue Assessment Soft Tissue Mobility Assessment palpable soft tissue tightness left quad, IT band left Joint Mobility Assessment Joint Mobility Assessment decreased patellofemoral mobility all directions PT-OP-G Mobility & Gait Start: 11/09/19 08:07 Freq: Status: Active Protocol: Document 11/10/19 09:05 SAK (Rec: 11/10/19 12:07 SAK [id number]) OP Gait Assessment Gait Gait Assistance Required: Independent Assistive Devices Assistive Device None Gait Deviations General Gait Pattern Antalgic Factors Limiting Gait Function Factors Limiting Gait Function Pain Stair Climbing Evaluation Technique/Endurance Stair Climbing Technique Step to Step Comments Stair Climbing Comments painful PT-OP-H Neuro Start: 11/09/19 08:07 Freq: Status: Active Protocol: Document 11/10/19 09:05 SAK (Rec: 11/10/19 12:07 SAK [id number]) Sensation Evaluation Gross Sensation Gross Sensation WNL PT-OP-J Posture/Palpation/Skin Start: 11/09/19 08:07 Freq: Status: Active Protocol: Document 11/10/19 09:05 SAK (Rec: 11/10/19 12:07 SAK [id number]) Posture Evaluation Position Standing Weight Distribution Weight Shifted Right Knee Posture (L) Genu Varus,(R) Genu Varus Ankle/Foot Posture (L) Neutral,(R) Neutral Palpation Assessment Location left knee Palpation Location infrapellar, lateral patellar region Palpation Findings Edema,Soft Tissue Tightness, Tenderness Skin Assessment Edema Assessment left knee Edema Type Non-Pitting Edema Degree 2+ Subjective Edema Description Tightness Comments no erythema PT-OP-K Range of Motion Start: 11/09/19 08:07 Freq: Status: Active Protocol: Document 11/10/19 09:05 SAK (Rec: 11/10/19 12:07 SAK [id number]) Knee Goniometric Range of Motion Knee Left Knee ROM WFL No Flexion Active (degrees) 98 Extension Active (degrees) 0 Right Knee ROM WFL Yes Knee ROM Limitations Knee ROM Limitations Soft Tissue Tightness,Swelling Ankle and Foot Goniometric Range of Motion Ankle and Foot christofer Ankle/Foot ROM WFL Yes PT-OP-L Special Tests Start: 11/09/19 08:07 Freq: Status: Active Protocol: Document 11/10/19 09:05 SAK (Rec: 11/10/19 12:07 SAK [id number]) Special Tests Knee Special Tests Varus- 25 Degrees Test Results negative Valgus- 25 Degrees Test Results negative Patellar Grind Test Test Results negative Posterior Draw Test Results negative Anterior Draw Test Results negative PT-OP-M Strength Start: 11/09/19 08:07 Freq: Status: Active Protocol: Document 11/10/19 09:05 SAK (Rec: 11/10/19 16:05 SAK [id number]) Hip Strength Hip Manual Muscle Testing Left Flexion (L2) 4+ Good+ Extension (S1) 4 Good Abduction 4+ Good+ Right Flexion (L2) 4+ Good+ Extension (S1) 4 Good Abduction 4+ Good+ Knee Strength Knee Manual Muscle Testing Left Flexion (S2) 4- Good- Extension (L3) 4 Good Right Flexion (S2) 5 Normal Extension (L3) 5 Normal PT-OP-Q Treatments Start: 11/09/19 08:07 Freq: Status: Active Protocol: Document 12/06/19 07:31 SP (Rec: 12/06/19 08:19 SP [id number]) Cardio Equipment Recumbent Elliptical (BiodZentrick) Duration (Minutes) 8 Resistance 6 Seat Position 10 Gym Equipment Shuttle Recovery Unilateral Squats Resistance 75 Shuttle Recovery Platform Stable Reps/Time 2x25 Bilateral Squats Resistance 137 Shuttle Recovery Platform Stable Reps/Time 2x25 Shuttle Balance blue clips Details WBOS, NBOS, EO, EC Reps/Duration 10 minutes Comments Throwing weighted ball at shuttle rebounder CG- Min cuing balance before throwing, then working with NBOS EC 30 sec x3 CGA-Min assistance needed when EC with NBOS cued . Red clips unsteady initially improved after wt shift cued glut/core facilitation min- mo d A COG over MARYAN Therapeutic Exercises Standing Exercises Squats Standing Exercise Name Squat Side bilateral Equipment Used Ball b/w knees Reps/Minutes 2x10 Comments no Ue assist, cued slow descent hip hi n ge Side Steps (Abd) Standing Exercise Name Abduction, f /b as well Resistance #4 (decreased loop size for proper knee alignment) Reps/Minutes 2 laps of ballet bar each, PRN contact Comments cued slow pacing no kn ee cave improved. hip abd, ext Tb Standing Exercise Name TB #2 Side bilateral Equipment Used foam roller/ chair for self support Reps/Minutes x10 eccentric step down Standing Exercise Name retro step back (review HEP) Side bilateral Equipment Used 6step, rail contact Reps/Minutes 2x10 Comments cued upright posture and knee alignment with and behind toes PT-OP-R Modalities Start: 11/09/19 08:07 Freq: Status: Active Protocol: Document 11/10/19 09:05 SAK (Rec: 11/10/19 16:05 SAK [id number]) Electric Stimulation Electric Stimulation Interferential Current (IFC) Body Location left knee Duration (Minutes) 12 Intensity 17 Target/Sweep Sweep Patient Position Hooklying Combined With Heat/Cold Cold Pack PT-OP-T Assessment and Plan Start: 11/09/19 08:07 Freq: Status: Active Protocol: Document 12/06/19 07:31 SP (Rec: 12/06/19 08:19 SP [id number]) Physical Therapy Assessment Goals Three Impairment antalgic gait Operation Shift Supervisor Goal (LTG) Patient able to ambulate without limp and with step over step gait on stairs LTG Duration 01/09/20 Two Impairment weakness left knee Operation Shift Supervisor Goal (LTG) strength left knee 5/5 to allow patient to return to usual activities LTG Duration 01/09/20 One Impairment pain left knee limiting patient mobility Operation Shift Supervisor Goal (LTG) decrease pain to no greater than 1/10 during all usual activity including taking his dog for a walk 12/06/19 Met Goal: <=1/10 L knee pain on walks w/ dog LTG Duration 01/09/20 Assessment Summary Assessment Improved in EC, dynamic balance during ball through blue clips and able to perform red clips only wt shift 1 UE CGA but Min- Mod A with no UE A shuttle balance. Able to increase resistance and reps during shuttle recovery today, cued slow muscular control eccentric. HEP band/crab walk decreased loop for proper form (decrease valgus cave). Eccentric step down contact rail and eccentric squats with ball between knees improving, cuing required for slow control hip hinge and knee alignment. No pain reported throughout tx. Continue progress Knee strengthening. Physical Therapy Plan Frequency and Duration Frequency of Treatment 2x/Week Duration of Treatment 8 wks Plan of Care Start Date 11/10/19 Plan of Care End Date 01/09/20 Therapeutic Interventions Therapeutic Interventions Aquatic Therapy,Gait Training, Home Exercise Program,Manual Therapy,Neuromuscular Re- education,Orthotic/Prosthetic Management,Patient/Caregiver Education,Self-Care/Home Management,Taping,Therapeutic Activities,Therapeutic Exercises Modalities Cold Pack/Ice Massage,Electric Stimulation,Hot Packs, Infrared Therapy,Iontophoresis ,Ultrasound Next Visit Focus/Plan Next Note Type Treatment Note Next Visit Plan Check in with how new HEP exercises went at home. Continue working on squats with ball between knees and shuttle balance, blue clips.
--- NOTE | 2019-12-08 10:10 | PT.OTN ---
Current Diagnoses Pain in left knee (12/08/19) Physical Therapy Treatment Note PT-OP-A Visit Information Start: 11/09/19 08:07 Freq: Status: Active Protocol: Document 12/08/19 15:39 MA (Rec: 12/08/19 15:50 MA [email or web address]) Out-Patient Physical Therapy Visit Information Visit Information Visit Type Treatment Note Visit Start Time 09:25 Visit Stop Time 10:10 Total Visit Minutes 45 Visit Number 9 Number of DEPUTY INSURANCE COMMISSIONER Visits 3 PT-OP-B Current Condition Start: 11/09/19 08:07 Freq: Status: Active Protocol: Document 11/10/19 09:05 SAK (Rec: 11/10/19 09:08 SAK [id number]) Current Condition History of Current Condition Onset Date 09/26/19 Current Complaints left knee pain History of Current Condition walking dog, dog went after animal, pulled hard and felt immediate pain in his knee, like maybe it hyperextended. Patient reports pain bottom of kneecap and lateral knee, leg feels loose, sometimes sensation of cracking. Has tried several knee braces, neoprene most helpful but hasn 't worn for awhile due to reported swelling when he wears. Denies leg giving way though does report that it appears to lock at times. Occasionally uses cane Prior Treatments and Tests x-ray negative for fractures, brace, ice (not recently) Treatment Goals Patient/Caregiver Goals Minimize pain, be able to resume prior activity level without pain Prior Functional Status Baseline Function- ADL's Independent Baseline Function- Mobility Independent Baseline Function- Gait indep, no pain Current Functional Impairments (Reported) Functional Limitations- ADL's painful Functional Limitations- Mobility/Gait painful PT-OP-C Subjective Start: 11/09/19 08:07 Freq: Status: Active Protocol: Document 12/08/19 15:39 MA (Rec: 12/08/19 15:50 MA [id number]) OP-PT Subjective Patient Comments Patient Comments Pt states that he overdid it mowing the lawn and his L knee hurts again today. Pt pointed to distal and lateral patella when asked where pain was PT-OP-F Manual Assessment Start: 11/09/19 08:07 Freq: Status: Active Protocol: Document 11/10/19 09:05 SAK (Rec: 11/10/19 12:07 SAK [id number]) Manual Assessments Soft Tissue Assessment Soft Tissue Mobility Assessment palpable soft tissue tightness left quad, IT band left Joint Mobility Assessment Joint Mobility Assessment decreased patellofemoral mobility all directions PT-OP-G Mobility & Gait Start: 11/09/19 08:07 Freq: Status: Active Protocol: Document 11/10/19 09:05 SAK (Rec: 11/10/19 12:07 SAK [id number]) OP Gait Assessment Gait Gait Assistance Required: Independent Assistive Devices Assistive Device None Gait Deviations General Gait Pattern Antalgic Factors Limiting Gait Function Factors Limiting Gait Function Pain Stair Climbing Evaluation Technique/Endurance Stair Climbing Technique Step to Step Comments Stair Climbing Comments painful PT-OP-H Neuro Start: 11/09/19 08:07 Freq: Status: Active Protocol: Document 11/10/19 09:05 SAK (Rec: 11/10/19 12:07 [facility] [id number]) Sensation Evaluation Gross Sensation Gross Sensation WNL PT-OP-J Posture/Palpation/Skin Start: 11/09/19 08:07 Freq: Status: Active Protocol: Document 11/10/19 09:05 [facility] (Rec: 11/10/19 12:07 [facility] [id number]) Posture Evaluation Position Standing Weight Distribution Weight Shifted Right Knee Posture (L) Genu Varus,(R) Genu Varus Ankle/Foot Posture (L) Neutral,(R) Neutral Palpation Assessment Location left knee Palpation Location infrapellar, lateral patellar region Palpation Findings Edema,Soft Tissue Tightness, Tenderness Skin Assessment Edema Assessment left knee Edema Type Non-Pitting Edema Degree 2+ Subjective Edema Description Tightness Comments no erythema PT-OP-K Range of Motion Start: 11/09/19 08:07 Freq: Status: Active Protocol: Document 11/10/19 09:05 [facility] (Rec: 11/10/19 12:07 [facility] [id number]) Knee Goniometric Range of Motion Knee Left Knee ROM WFL No Flexion Active (degrees) 98 Extension Active (degrees) 0 Right Knee ROM WFL Yes Knee ROM Limitations Knee ROM Limitations Soft Tissue Tightness,Swelling Ankle and Foot Goniometric Range of Motion Ankle and Foot christofer Ankle/Foot ROM WFL Yes PT-OP-L Special Tests Start: 11/09/19 08:07 Freq: Status: Active Protocol: Document 11/10/19 09:05 [facility] (Rec: 11/10/19 12:07 [facility] [id number]) Special Tests Knee Special Tests Varus- 25 Degrees Test Results negative Valgus- 25 Degrees Test Results negative Patellar Grind Test Test Results negative Posterior Draw Test Results negative Anterior Draw Test Results negative PT-OP-M Strength Start: 11/09/19 08:07 Freq: Status: Active Protocol: Document 11/10/19 09:05 [facility] (Rec: 11/10/19 16:05 [facility] [id number]) Hip Strength Hip Manual Muscle Testing Left Flexion (L2) 4+ Good+ Extension (S1) 4 Good Abduction 4+ Good+ Right Flexion (L2) 4+ Good+ Extension (S1) 4 Good Abduction 4+ Good+ Knee Strength Knee Manual Muscle Testing Left Flexion (S2) 4- Good- Extension (L3) 4 Good Right Flexion (S2) 5 Normal Extension (L3) 5 Normal PT-OP-Q Treatments Start: 11/09/19 08:07 Freq: Status: Active Protocol: Document 12/08/19 15:39 MA (Rec: 12/08/19 15:50 MA [email or web address]) Gym Equipment Shuttle Recovery Unilateral Squats Resistance 75 Shuttle Recovery Platform Stable Reps/Time 4x10 Bilateral Squats Resistance 112 Shuttle Recovery Platform Stable Reps/Time 3x15 Therapeutic Exercises Supine Exercises HS stretch w/ stra p Supine Exercise Name Passive HS stretch by DEPUTY INSURANCE COMMISSIONER Side bilateral Reps/Minutes [id number] Prone Exercises quad stretch Prone Exercise Name manual stretch by DEPUTY INSURANCE COMMISSIONER Side bilateral Reps/Minutes 2x60 sec/side Standing Exercises Side Steps (Abd) Standing Exercise Name Abduction Resistance #4 Reps/Minutes 2 laps of ballet bar each, PRN contact eccentric step down Side bilateral Equipment Used 4 Reps/Minutes 4x10 Comments cued slowing down for more eccentric control PT-OP-R Modalities Start: 11/09/19 08:07 Freq: Status: Active Protocol: Document 11/10/19 09:05 [facility] (Rec: 11/10/19 16:05 [facility] [id number]) Electric Stimulation Electric Stimulation Interferential Current (IFC) Body Location left knee Duration (Minutes) 12 Intensity 17 Target/Sweep Sweep Patient Position Hooklying Combined With Heat/Cold Cold Pack PT-OP-T Assessment and Plan Start: 11/09/19 08:07 Freq: Status: Active Protocol: Document 12/08/19 15:39 MA (Rec: 12/08/19 15:50 MA [email or web address]) Physical Therapy Assessment Goals Three Impairment antalgic gait Student Dean Goal (LTG) Patient able to ambulate without limp and with step over step gait on stairs LTG Duration 01/09/20 Two Impairment weakness left knee Fci Goal (LTG) strength left knee 5/5 to allow patient to return to usual activities LTG Duration 01/09/20 One Impairment pain left knee limiting patient mobility Fci Goal (LTG) decrease pain to no greater than 1/10 during all usual activity including taking his dog for a walk 12/06/19 Met Goal: <=1/10 L knee pain on walks w/ dog LTG Duration 01/09/20 Assessment Summary Assessment pt required cues for slowing down eccentric step down exercises. Due to pt's knee soreness, focused more on stretching during today's tx Physical Therapy Plan Frequency and Duration Frequency of Treatment 2x/Week Duration of Treatment 8 wks Plan of Care Start Date 11/10/19 Plan of Care End Date 01/09/20 Next Visit Focus/Plan Next Note Type Treatment Note Next Visit Plan Continue stretching, strengthening, and pain management techniques.
--- NOTE | 2019-12-14 08:15 | PT.OTN ---
Current Diagnoses Pain in left knee (12/14/19) Physical Therapy Treatment Note PT-OP-A Visit Information Start: 11/09/19 08:07 Freq: Status: Active Protocol: Document 12/14/19 07:30 SP (Rec: 12/14/19 10:26 SP [id number]) Out-Patient Physical Therapy Visit Information Visit Information Visit Type Treatment Note Visit Start Time 07:30 Visit Stop Time 08:15 Total Visit Minutes 45 Visit Number 10 Number of [employer]W [employer]USER CIRCULAR Visits 4 PT-OP-B Current Condition Start: 11/09/19 08:07 Freq: Status: Active Protocol: Document 11/10/19 09:05 SAK (Rec: 11/10/19 09:08 SAK [id number]) Current Condition History of Current Condition Onset Date 09/26/19 Current Complaints left knee pain History of Current Condition walking dog, dog went after animal, pulled hard and felt immediate pain in his knee, like maybe it hyperextended. Patient reports pain bottom of kneecap and lateral knee, leg feels loose, sometimes sensation of cracking. Has tried several knee braces, neoprene most helpful but hasn 't worn for awhile due to reported swelling when he wears. Denies leg giving way though does report that it appears to lock at times. Occasionally uses cane Prior Treatments and Tests x-ray negative for fractures, brace, ice (not recently) Treatment Goals Patient/Caregiver Goals Minimize pain, be able to resume prior activity level without pain Prior Functional Status Baseline Function- ADL's Independent Baseline Function- Mobility Independent Baseline Function- Gait indep, no pain Current Functional Impairments (Reported) Functional Limitations- ADL's painful Functional Limitations- Mobility/Gait painful PT-OP-C Subjective Start: 11/09/19 08:07 Freq: Status: Active Protocol: Document 12/14/19 07:30 SP (Rec: 12/14/19 10:26 SP [id number]) OP-PT Subjective Patient Comments Patient Comments Pt reported felt some soreness (1.5/10) but not pain over L med to lateral Knee sub patella over the weekend with ability to stand on feet alot (12 hrs) at dog show, showing their dog. He had to carry approx 40-50# equipment needed. PT-OP-F Manual Assessment Start: 11/09/19 08:07 Freq: Status: Active Protocol: Document 11/10/19 09:05 SAK (Rec: 11/10/19 12:07 SAK [id number]) Manual Assessments Soft Tissue Assessment Soft Tissue Mobility Assessment palpable soft tissue tightness left quad, IT band left Joint Mobility Assessment Joint Mobility Assessment decreased patellofemoral mobility all directions PT-OP-G Mobility & Gait Start: 11/09/19 08:07 Freq: Status: Active Protocol: Document 11/10/19 09:05 SAK (Rec: 11/10/19 12:07 SAK [id number]) OP Gait Assessment Gait Gait Assistance Required: Independent Assistive Devices Assistive Device None Gait Deviations General Gait Pattern Antalgic Factors Limiting Gait Function Factors Limiting Gait Function Pain Stair Climbing Evaluation Technique/Endurance Stair Climbing Technique Step to Step Comments Stair Climbing Comments painful PT-OP-H Neuro Start: 11/09/19 08:07 Freq: Status: Active Protocol: Document 11/10/19 09:05 SAK (Rec: 11/10/19 12:07 SAK [id number]) Sensation Evaluation Gross Sensation Gross Sensation WNL PT-OP-J Posture/Palpation/Skin Start: 11/09/19 08:07 Freq: Status: Active Protocol: Document 11/10/19 09:05 SAK (Rec: 11/10/19 12:07 SAK [id number]) Posture Evaluation Position Standing Weight Distribution Weight Shifted Right Knee Posture (L) Genu Varus,(R) Genu Varus Ankle/Foot Posture (L) Neutral,(R) Neutral Palpation Assessment Location left knee Palpation Location infrapellar, lateral patellar region Palpation Findings Edema,Soft Tissue Tightness, Tenderness Skin Assessment Edema Assessment left knee Edema Type Non-Pitting Edema Degree 2+ Subjective Edema Description Tightness Comments no erythema PT-OP-K Range of Motion Start: 11/09/19 08:07 Freq: Status: Active Protocol: Document 11/10/19 09:05 SAK (Rec: 11/10/19 12:07 SAK [id number]) Knee Goniometric Range of Motion Knee Left Knee ROM WFL No Flexion Active (degrees) 98 Extension Active (degrees) 0 Right Knee ROM WFL Yes Knee ROM Limitations Knee ROM Limitations Soft Tissue Tightness,Swelling Ankle and Foot Goniometric Range of Motion Ankle and Foot christofer Ankle/Foot ROM WFL Yes PT-OP-L Special Tests Start: 11/09/19 08:07 Freq: Status: Active Protocol: Document 11/10/19 09:05 SAK (Rec: 11/10/19 12:07 SAK [id number]) Special Tests Knee Special Tests Varus- 25 Degrees Test Results negative Valgus- 25 Degrees Test Results negative Patellar Grind Test Test Results negative Posterior Draw Test Results negative Anterior Draw Test Results negative PT-OP-M Strength Start: 11/09/19 08:07 Freq: Status: Active Protocol: Document 11/10/19 09:05 [facility] (Rec: 11/10/19 16:05 [facility] [id number]) Hip Strength Hip Manual Muscle Testing Left Flexion (L2) 4+ Good+ Extension (S1) 4 Good Abduction 4+ Good+ Right Flexion (L2) 4+ Good+ Extension (S1) 4 Good Abduction 4+ Good+ Knee Strength Knee Manual Muscle Testing Left Flexion (S2) 4- Good- Extension (L3) 4 Good Right Flexion (S2) 5 Normal Extension (L3) 5 Normal PT-OP-Q Treatments Start: 11/09/19 08:07 Freq: Status: Active Protocol: Document 12/14/19 07:30 SP (Rec: 12/14/19 10:26 SP [id number]) Cardio Equipment Bicycle (Upright) Duration (Minutes) 8 Resistance 8 Seat Position 4 Therapeutic Exercises Standing Exercises sit to stands Standing Exercise Name no UE support Equipment Used 18 chair Reps/Minutes 10 reps in 20 sec. Comments no pain, discomfort reported eccentric step down Side bilateral Equipment Used 6 step, B HR Reps/Minutes 2x10 alternate with 20 sec rest between sessts Comments cued slowing down for more eccentric control, more ant L knee recrut-but ok crab walk f/b/s Resistance Tb #2 at ankles ( G TB) Reps/Minutes 20 ft x2 laps each direction Comments cued decrease side bend trunk more LE reach and foot clear trail LE Manual Therapy Treatment Soft Tissue Mobilization quad, patellar tendon, ITB Body Location L patellar tendon, distal quad supr patella Mobilization Type Cross-Friction Intensity/Depth Moderate Body Position Supine Comments 5 min Joint Mobilizations patellar mobes Joint L med/lat/inf/sup/rotation CW/ CCW Grade II Body Position Supine Reps/Duration 1 min Taping 1 Body Location left knee Treatment Focus patellar support superiorly, pain reduction Type of Tape Kinesio Tape Skin Inspection intact Comments 2 V strips start patellar tendon tension superior diagonal 2 min PT-OP-R Modalities Start: 11/09/19 08:07 Freq: Status: Active Protocol: Document 11/10/19 09:05 SAK (Rec: 11/10/19 16:05 SAK [id number]) Electric Stimulation Electric Stimulation Interferential Current (IFC) Body Location left knee Duration (Minutes) 12 Intensity 17 Target/Sweep Sweep Patient Position Hooklying Combined With Heat/Cold Cold Pack PT-OP-T Assessment and Plan Start: 11/09/19 08:07 Freq: Status: Active Protocol: Document 12/14/19 07:30 SP (Rec: 12/14/19 10:26 SP [id number]) Physical Therapy Assessment Goals Three Impairment antalgic gait Intermediate Goal (LTG) Patient able to ambulate without limp and with step over step gait on stairs LTG Duration 01/09/20 Two Impairment weakness left knee Trimming Operator Goal (LTG) strength left knee 5/5 to allow patient to return to usual activities LTG Duration 01/09/20 One Impairment pain left knee limiting patient mobility Trimming Operator Goal (LTG) decrease pain to no greater than 1/10 during all usual activity including taking his dog for a walk 12/06/19 Met Goal: <=1/10 L knee pain on walks w/ dog LTG Duration 01/09/20 Assessment Summary Assessment Pt tolerated ther ex with just little soreness over patellar tendon LLE ramsey step downs, band walk. Cued knee alignment and glut facilitation with improved form at/contact rail for support when needed. Pt reports has been walking dog and not having any pain but the dog hasn't pulled him tryingto go to another dog to elicit anterior knee pain complaint why referred. Pt stated, maybe I am getting stronger and it doesn't hurt walking dog now? Patellar taping to see if get no (0) discomfort than 1.5/10 during step down, reported same. Next tx try eccentric decline squat on wedge platform (bal board?) or walking down stairs , decline shuttle squats to assess if can adjust glut fac and not anterior knee recruitment. Reassess stretching HEP end of tx as well, didn't get to today. Physical Therapy Plan Frequency and Duration Frequency of Treatment 2x/Week Duration of Treatment 8 wks Plan of Care Start Date 11/10/19 Plan of Care End Date 01/09/20 Therapeutic Interventions Therapeutic Interventions Aquatic Therapy,Gait Training, Home Exercise Program,Manual Therapy,Neuromuscular Re- education,Orthotic/Prosthetic Management,Patient/Caregiver Education,Self-Care/Home Management,Taping,Therapeutic Activities,Therapeutic Exercises Modalities Cold Pack/Ice Massage,Electric Stimulation,Hot Packs, Infrared Therapy,Iontophoresis ,Ultrasound Next Visit Focus/Plan Next Note Type Treatment Note Next Visit Plan Continue stretching, strengthening, and pain management techniques.
--- NOTE | 2019-12-16 12:04 | PT.OTN ---
Current Diagnoses Pain in left knee (12/16/19) Physical Therapy Treatment Note PT-OP-A Visit Information Start: 11/09/19 08:07 Freq: Status: Active Protocol: Document 12/16/19 09:02 [facility] (Rec: 12/16/19 09:49 [facility] [id number]) Out-Patient Physical Therapy Visit Information Visit Information Visit Type Progress Note Visit Start Time 09:00 Visit Stop Time 09:45 Total Visit Minutes 45 Visit Number 11 Number of AIRPORT ENGINEER Visits 0 PT-OP-B Current Condition Start: 11/09/19 08:07 Freq: Status: Active Protocol: Document 11/10/19 09:05 SAK (Rec: 11/10/19 09:08 SAK [id number]) Current Condition History of Current Condition Onset Date 09/26/19 Current Complaints left knee pain History of Current Condition walking dog, dog went after animal, pulled hard and felt immediate pain in his knee, like maybe it hyperextended. Patient reports pain bottom of kneecap and lateral knee, leg feels loose, sometimes sensation of cracking. Has tried several knee braces, neoprene most helpful but hasn 't worn for awhile due to reported swelling when he wears. Denies leg giving way though does report that it appears to lock at times. Occasionally uses cane Prior Treatments and Tests x-ray negative for fractures, brace, ice (not recently) Treatment Goals Patient/Caregiver Goals Minimize pain, be able to resume prior activity level without pain Prior Functional Status Baseline Function- ADL's Independent Baseline Function- Mobility Independent Baseline Function- Gait indep, no pain Current Functional Impairments (Reported) Functional Limitations- ADL's painful Functional Limitations- Mobility/Gait painful PT-OP-C Subjective Start: 11/09/19 08:07 Freq: Status: Active Protocol: Document 12/16/19 09:02 SAK (Rec: 12/16/19 09:49 [facility] [id number]) OP-PT Subjective Patient Comments Patient Comments Decreasing pain, felt taping of kneecap helpful. Most difficult exercise is sidestepping with band. Patient Reported Progress Improving PT-OP-F Manual Assessment Start: 11/09/19 08:07 Freq: Status: Active Protocol: Document 11/10/19 09:05 SAK (Rec: 11/10/19 12:07 SAK [id number]) Manual Assessments Soft Tissue Assessment Soft Tissue Mobility Assessment palpable soft tissue tightness left quad, IT band left Joint Mobility Assessment Joint Mobility Assessment decreased patellofemoral mobility all directions PT-OP-G Mobility & Gait Start: 11/09/19 08:07 Freq: Status: Active Protocol: Document 11/10/19 09:05 [facility] (Rec: 11/10/19 12:07 SAK [id number]) OP Gait Assessment Gait Gait Assistance Required: Independent Assistive Devices Assistive Device None Gait Deviations General Gait Pattern Antalgic Factors Limiting Gait Function Factors Limiting Gait Function Pain Stair Climbing Evaluation Technique/Endurance Stair Climbing Technique Step to Step Comments Stair Climbing Comments painful PT-OP-H Neuro Start: 11/09/19 08:07 Freq: Status: Active Protocol: Document 11/10/19 09:05 SAK (Rec: 11/10/19 12:07 SAK [id number]) Sensation Evaluation Gross Sensation Gross Sensation WNL PT-OP-J Posture/Palpation/Skin Start: 11/09/19 08:07 Freq: Status: Active Protocol: Document 11/10/19 09:05 [facility] (Rec: 11/10/19 12:07 [facility] [id number]) Posture Evaluation Position Standing Weight Distribution Weight Shifted Right Knee Posture (L) Genu Varus,(R) Genu Varus Ankle/Foot Posture (L) Neutral,(R) Neutral Palpation Assessment Location left knee Palpation Location infrapellar, lateral patellar region Palpation Findings Edema,Soft Tissue Tightness, Tenderness Skin Assessment Edema Assessment left knee Edema Type Non-Pitting Edema Degree 2+ Subjective Edema Description Tightness Comments no erythema PT-OP-K Range of Motion Start: 11/09/19 08:07 Freq: Status: Active Protocol: Document 11/10/19 09:05 [facility] (Rec: 11/10/19 12:07 SAK [id number]) Knee Goniometric Range of Motion Knee Left Knee ROM WFL No Flexion Active (degrees) 98 Extension Active (degrees) 0 Right Knee ROM WFL Yes Knee ROM Limitations Knee ROM Limitations Soft Tissue Tightness,Swelling Ankle and Foot Goniometric Range of Motion Ankle and Foot christofer Ankle/Foot ROM WFL Yes PT-OP-L Special Tests Start: 11/09/19 08:07 Freq: Status: Active Protocol: Document 11/10/19 09:05 [facility] (Rec: 11/10/19 12:07 SAK [id number]) Special Tests Knee Special Tests Varus- 25 Degrees Test Results negative Valgus- 25 Degrees Test Results negative Patellar Grind Test Test Results negative Posterior Draw Test Results negative Anterior Draw Test Results negative PT-OP-M Strength Start: 11/09/19 08:07 Freq: Status: Active Protocol: Document 11/10/19 09:05 [facility] (Rec: 11/10/19 16:05 [facility] [id number]) Hip Strength Hip Manual Muscle Testing Left Flexion (L2) 4+ Good+ Extension (S1) 4 Good Abduction 4+ Good+ Right Flexion (L2) 4+ Good+ Extension (S1) 4 Good Abduction 4+ Good+ Knee Strength Knee Manual Muscle Testing Left Flexion (S2) 4- Good- Extension (L3) 4 Good Right Flexion (S2) 5 Normal Extension (L3) 5 Normal PT-OP-Q Treatments Start: 11/09/19 08:07 Freq: Status: Active Protocol: Document 12/16/19 09:02 [facility] (Rec: 12/16/19 09:49 [facility] [id number]) Cardio Equipment Bicycle (Upright) Duration (Minutes) 8 Resistance 8 Seat Position 4 Other cues for circular motion, LE alignment Therapeutic Exercises Sitting Exercises HS stretch Side left Reps/Minutes 30 x3 Standing Exercises quad stretch Reps/Minutes 1x30 Comments chair sit to stands Standing Exercise Name no UE support Equipment Used 18 chair, ball between knees Reps/Minutes 12x Comments no pain, discomfort reported eccentric step down Side bilateral Equipment Used 6 step, B HR Reps/Minutes 2x10 alternate with 20 sec rest between sessts Comments cued slowing down for more eccentric control, more ant L knee recrut-but ok crab walk f/b/s Resistance Tb #2 at ankles ( G TB) Reps/Minutes 20 ft x2 laps each direction Comments cued decrease side bend trunk more LE reach and foot clear trail LE hip flexor stretch at stair Side bilateral Equipment Used rail Reps/Minutes 30 x2 Comments cued upright posture and anterior hip forward and depress toward floor calf stretch Side bilateral Reps/Minutes 30 x3 Comments cued no hyper knee extension Manual Therapy Treatment Soft Tissue Mobilization hamstring Body Location left Mobilization Type Myofascial Release Intensity/Depth Moderate Body Position Supine Joint Mobilizations patellar mobes Joint L med/lat/inf/sup/rotation CW/ CCW Grade II Body Position Supine Reps/Duration 1 min Taping 1 Body Location left knee Treatment Focus patellar support superiorly, pain reduction Type of Tape Kinesio Tape Skin Inspection intact Comments 2 V strips start patellar tendon tension superior diagonal 2 min PT-OP-R Modalities Start: 11/09/19 08:07 Freq: Status: Active Protocol: Document 11/10/19 09:05 [facility] (Rec: 11/10/19 16:05 [facility] [id number]) Electric Stimulation Electric Stimulation Interferential Current (IFC) Body Location left knee Duration (Minutes) 12 Intensity 17 Target/Sweep Sweep Patient Position Hooklying Combined With Heat/Cold Cold Pack PT-OP-T Assessment and Plan Start: 11/09/19 08:07 Freq: Status: Active Protocol: Document 12/16/19 09:02 [facility] (Rec: 12/16/19 09:49 [facility] [id number]) Physical Therapy Assessment Goals Three Impairment antalgic gait Dental Cream Maker Goal (LTG) Patient able to ambulate without limp and with step over step gait on stairs LTG Duration 01/09/20 Two Impairment weakness left knee Longterm Goal (LTG) strength left knee 5/5 to allow patient to return to usual activities LTG Duration 01/09/20 One Impairment pain left knee limiting patient mobility Dental Cream Maker Goal (LTG) decrease pain to no greater than 1/10 during all usual activity including taking his dog for a walk 12/06/19 Met Goal: <=1/10 L knee pain on walks w/ dog LTG Duration 01/09/20 Progress Towards Goals Progress Towards Goals Progressing Toward Goals Assessment Summary Assessment Patient given standing quad stretch and reminded of seated HS stretch for options. Continues to benefit from kinesiotape to left knee. MFR to hamstring today. Added ball between knees with sit to stand for improved alignment and muscle activation Physical Therapy Plan Frequency and Duration Frequency of Treatment 2x/Week Duration of Treatment 8 wks Plan of Care Start Date 11/10/19 Plan of Care End Date 01/09/20 Therapeutic Interventions Therapeutic Interventions Aquatic Therapy,Gait Training, Home Exercise Program,Manual Therapy,Neuromuscular Re- education,Orthotic/Prosthetic Management,Patient/Caregiver Education,Self-Care/Home Management,Taping,Therapeutic Activities,Therapeutic Exercises Modalities Cold Pack/Ice Massage,Electric Stimulation,Hot Packs, Infrared Therapy,Iontophoresis ,Ultrasound Next Visit Focus/Plan Next Note Type Treatment Note
--- NOTE | 2019-12-16 14:11 | PT.OPPN ---
Current Diagnoses Pain in left knee (12/16/19) Physical Therapy Progress Note PT-OP-A Visit Information Start: 11/09/19 08:07 Freq: Status: Active Protocol: Document 12/16/19 09:02 [facility] (Rec: 12/16/19 09:49 [facility] [id number]) Out-Patient Physical Therapy Visit Information Visit Information Visit Type Progress Note Visit Start Time 09:00 Visit Stop Time 09:45 Total Visit Minutes 45 Visit Number 11 Number of CUSTOMER SALES SERVICE MANAGER Visits 0 PT-OP-B Current Condition Start: 11/09/19 08:07 Freq: Status: Active Protocol: Document 11/10/19 09:05 [facility] (Rec: 11/10/19 09:08 [facility] [id number]) Current Condition History of Current Condition Onset Date 09/26/19 Current Complaints left knee pain History of Current Condition walking dog, dog went after animal, pulled hard and felt immediate pain in his knee, like maybe it hyperextended. Patient reports pain bottom of kneecap and lateral knee, leg feels loose, sometimes sensation of cracking. Has tried several knee braces, neoprene most helpful but hasn 't worn for awhile due to reported swelling when he wears. Denies leg giving way though does report that it appears to lock at times. Occasionally uses cane Prior Treatments and Tests x-ray negative for fractures, brace, ice (not recently) Treatment Goals Patient/Caregiver Goals Minimize pain, be able to resume prior activity level without pain Prior Functional Status Baseline Function- ADL's Independent Baseline Function- Mobility Independent Baseline Function- Gait indep, no pain Current Functional Impairments (Reported) Functional Limitations- ADL's painful Functional Limitations- Mobility/Gait painful PT-OP-C Subjective Start: 11/09/19 08:07 Freq: Status: Active Protocol: Document 12/16/19 09:02 [facility] (Rec: 12/16/19 09:49 [facility] [id number]) OP-PT Subjective Patient Comments Patient Comments Decreasing pain, felt taping of kneecap helpful. Most difficult exercise is sidestepping with band. Patient Reported Progress Improving PT-OP-F Manual Assessment Start: 11/09/19 08:07 Freq: Status: Active Protocol: Document 11/10/19 09:05 [facility] (Rec: 11/10/19 12:07 [facility] [id number]) Manual Assessments Soft Tissue Assessment Soft Tissue Mobility Assessment palpable soft tissue tightness left quad, IT band left Joint Mobility Assessment Joint Mobility Assessment decreased patellofemoral mobility all directions PT-OP-G Mobility & Gait Start: 11/09/19 08:07 Freq: Status: Active Protocol: Document 11/10/19 09:05 [facility] (Rec: 11/10/19 12:07 [facility] [id number]) OP Gait Assessment Gait Gait Assistance Required: Independent Assistive Devices Assistive Device None Gait Deviations General Gait Pattern Antalgic Factors Limiting Gait Function Factors Limiting Gait Function Pain Stair Climbing Evaluation Technique/Endurance Stair Climbing Technique Step to Step Comments Stair Climbing Comments painful PT-OP-H Neuro Start: 11/09/19 08:07 Freq: Status: Active Protocol: Document 11/10/19 09:05 [facility] (Rec: 11/10/19 12:07 [facility] [id number]) Sensation Evaluation Gross Sensation Gross Sensation WNL PT-OP-J Posture/Palpation/Skin Start: 11/09/19 08:07 Freq: Status: Active Protocol: Document 11/10/19 09:05 [facility] (Rec: 11/10/19 12:07 [facility] [id number]) Posture Evaluation Position Standing Weight Distribution Weight Shifted Right Knee Posture (L) Genu Varus,(R) Genu Varus Ankle/Foot Posture (L) Neutral,(R) Neutral Palpation Assessment Location left knee Palpation Location infrapellar, lateral patellar region Palpation Findings Edema,Soft Tissue Tightness, Tenderness Skin Assessment Edema Assessment left knee Edema Type Non-Pitting Edema Degree 2+ Subjective Edema Description Tightness Comments no erythema PT-OP-K Range of Motion Start: 11/09/19 08:07 Freq: Status: Active Protocol: Document 11/10/19 09:05 [facility] (Rec: 11/10/19 12:07 [facility]AK [id number]) Knee Goniometric Range of Motion Knee Measured in Degrees Left Knee ROM WFL No Flexion Active (degrees) 98 Extension Active (degrees) 0 Right Knee ROM WFL Yes Knee ROM Limitations Knee ROM Limitations Soft Tissue Tightness,Swelling Ankle and Foot Goniometric Range of Motion Ankle and Foot Measured in Degrees christofer Ankle/Foot ROM WFL Yes PT-OP-L Special Tests Start: 11/09/19 08:07 Freq: Status: Active Protocol: Document 11/10/19 09:05 [facility] (Rec: 11/10/19 12:07 [facility] [id number]) Special Tests Knee Special Tests Varus- 25 Degrees Test Results negative Valgus- 25 Degrees Test Results negative Patellar Grind Test Test Results negative Posterior Draw Test Results negative Anterior Draw Test Results negative PT-OP-M Strength Start: 11/09/19 08:07 Freq: Status: Active Protocol: Document 11/10/19 09:05 [facility] (Rec: 11/10/19 16:05 [facility] [id number]) Hip Strength Hip Manual Muscle Testing Left Flexion (L2) 4+ Good+ Extension (S1) 4 Good Abduction 4+ Good+ Right Flexion (L2) 4+ Good+ Extension (S1) 4 Good Abduction 4+ Good+ Knee Strength Knee Manual Muscle Testing Left Flexion (S2) 4- Good- Extension (L3) 4 Good Right Flexion (S2) 5 Normal Extension (L3) 5 Normal PT-OP-T Assessment and Plan Start: 11/09/19 08:07 Freq: Status: Active Protocol: Document 12/16/19 09:02 [facility] (Rec: 12/16/19 09:49 [facility] [id number]) Physical Therapy Assessment Goals Three Impairment antalgic gait Floral Designer Goal (LTG) Patient able to ambulate without limp and with step over step gait on stairs LTG Duration 01/09/20 Two Impairment weakness left knee Senior Living Goal (LTG) strength left knee 5/5 to allow patient to return to usual activities LTG Duration 01/09/20 One Impairment pain left knee limiting patient mobility Senior Living Goal (LTG) decrease pain to no greater than 1/10 during all usual activity including taking his dog for a walk 12/06/19 Met Goal: <=1/10 L knee pain on walks w/ dog LTG Duration 01/09/20 Progress Towards Goals Progress Towards Goals Progressing Toward Goals Assessment Summary Assessment Patient given standing quad stretch and reminded of seated HS stretch for options. Continues to benefit from kinesiotape to left knee. MFR to hamstring today. Added ball between knees with sit to stand for improved alignment and muscle activation Physical Therapy Plan Frequency and Duration Frequency of Treatment 2x/Week Duration of Treatment 8 wks Plan of Care Start Date 11/10/19 Plan of Care End Date 01/09/20 Therapeutic Interventions Therapeutic Interventions Aquatic Therapy,Gait Training, Home Exercise Program,Manual Therapy,Neuromuscular Re- education,Orthotic/Prosthetic Management,Patient/Caregiver Education,Self-Care/Home Management,Taping,Therapeutic Activities,Therapeutic Exercises Modalities Cold Pack/Ice Massage,Electric Stimulation,Hot Packs, Infrared Therapy,Iontophoresis ,Ultrasound Next Visit Focus/Plan Next Note Type Treatment Note
--- NOTE | 2019-12-21 09:00 | PT.OTN ---
Current Diagnoses Pain in left knee (12/21/19) Physical Therapy Treatment Note PT-OP-A Visit Information Start: 11/09/19 08:07 Freq: Status: Active Protocol: Document 12/21/19 08:15 [facility] (Rec: 12/21/19 11:07 [facility] [id number]) Out-Patient Physical Therapy Visit Information Visit Information Visit Type Treatment Note Visit Start Time 08:15 Visit Stop Time 09:00 Total Visit Minutes 45 Visit Number 12 Number of STITCH BONDING MACHINE OPERATOR Visits 1 PT-OP-B Current Condition Start: 11/09/19 08:07 Freq: Status: Active Protocol: Document 11/10/19 09:05 [facility] (Rec: 11/10/19 09:08 [facility]AK [id number]) Current Condition History of Current Condition Onset Date 09/26/19 Current Complaints left knee pain History of Current Condition walking dog, dog went after animal, pulled hard and felt immediate pain in his knee, like maybe it hyperextended. Patient reports pain bottom of kneecap and lateral knee, leg feels loose, sometimes sensation of cracking. Has tried several knee braces, neoprene most helpful but hasn 't worn for awhile due to reported swelling when he wears. Denies leg giving way though does report that it appears to lock at times. Occasionally uses cane Prior Treatments and Tests x-ray negative for fractures, brace, ice (not recently) Treatment Goals Patient/Caregiver Goals Minimize pain, be able to resume prior activity level without pain Prior Functional Status Baseline Function- ADL's Independent Baseline Function- Mobility Independent Baseline Function- Gait indep, no pain Current Functional Impairments (Reported) Functional Limitations- ADL's painful Functional Limitations- Mobility/Gait painful PT-OP-C Subjective Start: 11/09/19 08:07 Freq: Status: Active Protocol: Document 12/21/19 08:15 SP (Rec: 12/21/19 11:07 SP [id number]) OP-PT Subjective Patient Comments Patient Comments Pt reported feeling my L knee a bit today, not bad though. I have been really working hard on keeping my L knee in a neutral postion while walking hoping to decreaes the pain having. PT-OP-F Manual Assessment Start: 11/09/19 08:07 Freq: Status: Active Protocol: Document 11/10/19 09:05 [facility] (Rec: 11/10/19 12:07 [facility] [id number]) Manual Assessments Soft Tissue Assessment Soft Tissue Mobility Assessment palpable soft tissue tightness left quad, IT band left Joint Mobility Assessment Joint Mobility Assessment decreased patellofemoral mobility all directions PT-OP-G Mobility & Gait Start: 11/09/19 08:07 Freq: Status: Active Protocol: Document 11/10/19 09:05 [facility] (Rec: 11/10/19 12:07 SAK [id number]) OP Gait Assessment Gait Gait Assistance Required: Independent Assistive Devices Assistive Device None Gait Deviations General Gait Pattern Antalgic Factors Limiting Gait Function Factors Limiting Gait Function Pain Stair Climbing Evaluation Technique/Endurance Stair Climbing Technique Step to Step Comments Stair Climbing Comments painful PT-OP-H Neuro Start: 11/09/19 08:07 Freq: Status: Active Protocol: Document 11/10/19 09:05 [facility] (Rec: 11/10/19 12:07 [facility] [id number]) Sensation Evaluation Gross Sensation Gross Sensation WNL PT-OP-J Posture/Palpation/Skin Start: 11/09/19 08:07 Freq: Status: Active Protocol: Document 11/10/19 09:05 [facility] (Rec: 11/10/19 12:07 [facility] [id number]) Posture Evaluation Position Standing Weight Distribution Weight Shifted Right Knee Posture (L) Genu Varus,(R) Genu Varus Ankle/Foot Posture (L) Neutral,(R) Neutral Palpation Assessment Location left knee Palpation Location infrapellar, lateral patellar region Palpation Findings Edema,Soft Tissue Tightness, Tenderness Skin Assessment Edema Assessment left knee Edema Type Non-Pitting Edema Degree 2+ Subjective Edema Description Tightness Comments no erythema PT-OP-K Range of Motion Start: 11/09/19 08:07 Freq: Status: Active Protocol: Document 11/10/19 09:05 [facility] (Rec: 11/10/19 12:07 [facility] [id number]) Knee Goniometric Range of Motion Knee Left Knee ROM WFL No Flexion Active (degrees) 98 Extension Active (degrees) 0 Right Knee ROM WFL Yes Knee ROM Limitations Knee ROM Limitations Soft Tissue Tightness,Swelling Ankle and Foot Goniometric Range of Motion Ankle and Foot christofer Ankle/Foot ROM WFL Yes PT-OP-L Special Tests Start: 11/09/19 08:07 Freq: Status: Active Protocol: Document 11/10/19 09:05 [facility] (Rec: 11/10/19 12:07 [facility] [id number]) Special Tests Knee Special Tests Varus- 25 Degrees Test Results negative Valgus- 25 Degrees Test Results negative Patellar Grind Test Test Results negative Posterior Draw Test Results negative Anterior Draw Test Results negative PT-OP-M Strength Start: 11/09/19 08:07 Freq: Status: Active Protocol: Document 11/10/19 09:05 [facility] (Rec: 11/10/19 16:05 [facility] [id number]) Hip Strength Hip Manual Muscle Testing Left Flexion (L2) 4+ Good+ Extension (S1) 4 Good Abduction 4+ Good+ Right Flexion (L2) 4+ Good+ Extension (S1) 4 Good Abduction 4+ Good+ Knee Strength Knee Manual Muscle Testing Left Flexion (S2) 4- Good- Extension (L3) 4 Good Right Flexion (S2) 5 Normal Extension (L3) 5 Normal PT-OP-Q Treatments Start: 11/09/19 08:07 Freq: Status: Active Protocol: Document 12/21/19 08:15 SP (Rec: 12/21/19 11:07 SP [id number]) Cardio Equipment Bicycle (Upright) Duration (Minutes) 8 Resistance 8 Seat Position 4 Therapeutic Exercises Sitting Exercises HS stretch Side left Reps/Minutes 30 x3 Standing Exercises stationary lunge Standing Exercise Name Max cuing for set up- only in PT for now Equipment Used chair support Reps/Minutes x5 Comments knee with and behind toes. quad stretch Side bilateral Equipment Used chair, foot propped up Reps/Minutes 1x30 Comments cued lean back not bend/squat form opposite leg on floor sit to stands Standing Exercise Name eccentric tap, arms across chest Equipment Used 18 chair, ball between knees Reps/Minutes 12x Comments no pain, tired reported eccentric step down Side bilateral Equipment Used 6 step, B HR Reps/Minutes 2x10 alternate with 20 sec rest between sets Comments cued knee behinds and with toes crab walk f/b/s Standing Exercise Name olivo bag on head to assist decreased lateral lean- better Resistance Tb #2 at ankles ( G TB) Reps/Minutes 20 ft x2 laps each direction Comments cued decrease side bend trunk more LE reach and foot clear trail LE PT-OP-R Modalities Start: 11/09/19 08:07 Freq: Status: Active Protocol: Document 11/10/19 09:05 [facility] (Rec: 09/23/20 16:05 [facility] [id number]) Electric Stimulation Electric Stimulation Interferential Current (IFC) Body Location left knee Duration (Minutes) 12 Intensity 17 Target/Sweep Sweep Patient Position Hooklying Combined With Heat/Cold Cold Pack PT-OP-T Assessment and Plan Start: 11/09/19 08:07 Freq: Status: Active Protocol: Document 12/21/19 08:15 SP (Rec: 12/21/19 11:07 SP [id number]) Physical Therapy Assessment Goals Three Impairment antalgic gait Skilled Nursing Goal (LTG) Patient able to ambulate without limp and with step over step gait on stairs LTG Duration 01/09/20 Two Impairment weakness left knee Housekeeper Supervisor Goal (LTG) strength left knee 5/5 to allow patient to return to usual activities LTG Duration 01/09/20 One Impairment pain left knee limiting patient mobility Skilled Nursing Goal (LTG) decrease pain to no greater than 1/10 during all usual activity including taking his dog for a walk 12/06/19 Met Goal: <=1/10 L knee pain on walks w/ dog LTG Duration 01/09/20 Assessment Summary Assessment Pt improved no L kneke pain just tired during ther ex. Mod- Max cuing for propre knee alignment with and behind toes to decrease anterior/ sub patella discomfort. Assessed gait with parallel foot/ hip positioning during gait as working hard on at home, suggested don't over stress parallel normal can be little ER/ t rail turner and stated no pain, told him to walk normal and be aware of checking in that not over t rail turner with good carryover. Pt does demonstrate B knee drifting passed toes during ex but no pain and corrects with cuing. Pt able to perform ex with no change in discomfort only tiring wtihout K taping. Assess response next tx if need use K taping for patella stab at this point. Physical Therapy Plan Frequency and Duration Frequency of Treatment 2x/Week Duration of Treatment 8 wks Plan of Care Start Date 11/10/19 Plan of Care End Date 01/09/20 Therapeutic Interventions Therapeutic Interventions Aquatic Therapy,Gait Training, Home Exercise Program,Manual Therapy,Neuromuscular Re- education,Orthotic/Prosthetic Management,Patient/Caregiver Education,Self-Care/Home Management,Taping,Therapeutic Activities,Therapeutic Exercises Modalities Cold Pack/Ice Massage,Electric Stimulation,Hot Packs, Infrared Therapy,Iontophoresis ,Ultrasound Next Visit Focus/Plan Next Note Type Treatment Note Next Visit Plan Assess reponse to last tx: knee stab durign HEP review, no taping how did do? Continue per PT POC: stretching, strengthening, and pain management techniques. If ok, assess adding shuttle balance, blue clips. [ End ]
--- NOTE | 2019-12-24 08:15 | PT.OTN ---
Current Diagnoses Pain in left knee (12/24/19) Physical Therapy Treatment Note PT-OP-A Visit Information Start: 11/09/19 08:07 Freq: Status: Active Protocol: Document 12/24/19 07:31 SP (Rec: 12/24/19 11:31 SP [id number]) Out-Patient Physical Therapy Visit Information Visit Information Visit Type Treatment Note Visit Start Time 07:31 Visit Stop Time 08:15 Total Visit Minutes 44 Visit Number 13 Number of JAVA PERFORMANCE ENGINEER Visits 2 PT-OP-B Current Condition Start: 11/09/19 08:07 Freq: Status: Active Protocol: Document 11/10/19 09:05 SAK (Rec: 11/10/19 09:08 SAK [id number]) Current Condition History of Current Condition Onset Date 09/26/19 Current Complaints left knee pain History of Current Condition walking dog, dog went after animal, pulled hard and felt immediate pain in his knee, like maybe it hyperextended. Patient reports pain bottom of kneecap and lateral knee, leg feels loose, sometimes sensation of cracking. Has tried several knee braces, neoprene most helpful but hasn 't worn for awhile due to reported swelling when he wears. Denies leg giving way though does report that it appears to lock at times. Occasionally uses cane Prior Treatments and Tests x-ray negative for fractures, brace, ice (not recently) Treatment Goals Patient/Caregiver Goals Minimize pain, be able to resume prior activity level without pain Prior Functional Status Baseline Function- ADL's Independent Baseline Function- Mobility Independent Baseline Function- Gait indep, no pain Current Functional Impairments (Reported) Functional Limitations- ADL's painful Functional Limitations- Mobility/Gait painful PT-OP-C Subjective Start: 11/09/19 08:07 Freq: Status: Active Protocol: Document 12/24/19 07:31 SP (Rec: 12/24/19 11:31 SP [id number]) OP-PT Subjective Patient Comments Patient Comments Pt reported feel is doing good but yesterday did some digging out flower gardens and will be turning it into grass , using hoe and shovel, sore maybe a 2/10 medial L knee, not bad just know it's there. PT-OP-F Manual Assessment Start: 11/09/19 08:07 Freq: Status: Active Protocol: Document 11/10/19 09:05 SAK (Rec: 11/10/19 12:07 SAK [id number]) Manual Assessments Soft Tissue Assessment Soft Tissue Mobility Assessment palpable soft tissue tightness left quad, IT band left Joint Mobility Assessment Joint Mobility Assessment decreased patellofemoral mobility all directions PT-OP-G Mobility & Gait Start: 11/09/19 08:07 Freq: Status: Active Protocol: Document 11/10/19 09:05 SAK (Rec: 11/10/19 12:07 SAK [id number]) OP Gait Assessment Gait Gait Assistance Required: Independent Assistive Devices Assistive Device None Gait Deviations General Gait Pattern Antalgic Factors Limiting Gait Function Factors Limiting Gait Function Pain Stair Climbing Evaluation Technique/Endurance Stair Climbing Technique Step to Step Comments Stair Climbing Comments painful PT-OP-H Neuro Start: 11/09/19 08:07 Freq: Status: Active Protocol: Document 11/10/19 09:05 [facility] (Rec: 11/10/19 12:07 [facility] [id number]) Sensation Evaluation Gross Sensation Gross Sensation WNL PT-OP-J Posture/Palpation/Skin Start: 11/09/19 08:07 Freq: Status: Active Protocol: Document 11/10/19 09:05 [facility] (Rec: 11/10/19 12:07 [facility] [id number]) Posture Evaluation Position Standing Weight Distribution Weight Shifted Right Knee Posture (L) Genu Varus,(R) Genu Varus Ankle/Foot Posture (L) Neutral,(R) Neutral Palpation Assessment Location left knee Palpation Location infrapellar, lateral patellar region Palpation Findings Edema,Soft Tissue Tightness, Tenderness Skin Assessment Edema Assessment left knee Edema Type Non-Pitting Edema Degree 2+ Subjective Edema Description Tightness Comments no erythema PT-OP-K Range of Motion Start: 11/09/19 08:07 Freq: Status: Active Protocol: Document 11/10/19 09:05 [facility] (Rec: 11/10/19 12:07 SAK [id number]) Knee Goniometric Range of Motion Knee Left Knee ROM WFL No Flexion Active (degrees) 98 Extension Active (degrees) 0 Right Knee ROM WFL Yes Knee ROM Limitations Knee ROM Limitations Soft Tissue Tightness,Swelling Ankle and Foot Goniometric Range of Motion Ankle and Foot christofer Ankle/Foot ROM WFL Yes PT-OP-L Special Tests Start: 11/09/19 08:07 Freq: Status: Active Protocol: Document 11/10/19 09:05 SAK (Rec: 11/10/19 12:07 SAK [id number]) Special Tests Knee Special Tests Varus- 25 Degrees Test Results negative Valgus- 25 Degrees Test Results negative Patellar Grind Test Test Results negative Posterior Draw Test Results negative Anterior Draw Test Results negative PT-OP-M Strength Start: 11/09/19 08:07 Freq: Status: Active Protocol: Document 11/10/19 09:05 SAK (Rec: 11/10/19 16:05 SAK [id number]) Hip Strength Hip Manual Muscle Testing Left Flexion (L2) 4+ Good+ Extension (S1) 4 Good Abduction 4+ Good+ Right Flexion (L2) 4+ Good+ Extension (S1) 4 Good Abduction 4+ Good+ Knee Strength Knee Manual Muscle Testing Left Flexion (S2) 4- Good- Extension (L3) 4 Good Right Flexion (S2) 5 Normal Extension (L3) 5 Normal PT-OP-Q Treatments Start: 11/09/19 08:07 Freq: Status: Active Protocol: Document 12/24/19 07:31 SP (Rec: 12/24/19 11:31 SP [id number]) Cardio Equipment Recumbent Bicycle Duration (Minutes) 8 Resistance 8 Seat Position 6 Gym Equipment Shuttle Recovery Unilateral Squats Details cued knee alignment more medical Resistance 75 Shuttle Recovery Platform Stable Reps/Time 3x15 Bilateral Squats Details ball between B knee (VMO fac to dec med jt discomfort- better) Resistance 112 Shuttle Recovery Platform Stable Reps/Time 3x15 Shuttle Balance red clips Details WBOS EO Reps/Duration 2 Comments 1. wt shift mostly 2. small slow head turns CG-Min A unsteady without contact, cuing for COG over MARYAN blue clips Details WBOS, NBOS, EO, EC Reps/Duration 4 min Comments EO no contact 1. wt shift 2. head turns 3. EC -only challenge EC Min A Neuro Re-Education Treatment Balance Activities obstacle course Surface uneven Equipment oval pads, hurdles, pods, balance beam (took out to hard ) Reps/Duration 6 laps forward Comments Mod, max during bal beam so took out, Min A initially then CGA with cuing for slow pacing and step control improved self corrections COG over MARYAN . PT-OP-R Modalities Start: 11/09/19 08:07 Freq: Status: Active Protocol: Document 11/10/19 09:05 SAK (Rec: 11/10/19 16:05 SAK [id number]) Electric Stimulation Electric Stimulation Interferential Current (IFC) Body Location left knee Duration (Minutes) 12 Intensity 17 Target/Sweep Sweep Patient Position Hooklying Combined With Heat/Cold Cold Pack PT-OP-T Assessment and Plan Start: 11/09/19 08:07 Freq: Status: Active Protocol: Document 12/24/19 07:31 SP (Rec: 12/24/19 11:31 SP [id number]) Physical Therapy Assessment Goals Three Impairment antalgic gait Jail Goal (LTG) Patient able to ambulate without limp and with step over step gait on stairs LTG Duration 01/09/20 Two Impairment weakness left knee Glass Wool Blanket Machine Feeder Goal (LTG) strength left knee 5/5 to allow patient to return to usual activities LTG Duration 01/09/20 One Impairment pain left knee limiting patient mobility Jail Goal (LTG) decrease pain to no greater than 1/10 during all usual activity including taking his dog for a walk 12/06/19 Met Goal: <=1/10 L knee pain on walks w/ dog LTG Duration 01/09/20 Assessment Summary Assessment Discussed progress making, if meeting his personal goals, POC due to exp 01/09/20 and whether if feels need to continue PT as get closer. Pt improved with balance today on shuttle balance blue clips only challenge EC stagger with CG to low Pili. Initiated red clips, improved with COG over MARYAN wt shift WBOS and slight head turn than last time assessed. No pain in knees during shuttle balance. Incorportated uneven surface obstacle course for safety COG over MARYAN to assimulate safety balance awareness walking on lawn projects doing at home with improvement in stability slower pace transition SLS stepping w/self corrections. Pt feels is making gains in strength and balance more confident outdoor uneven surfaces, still slight medial pain during activities but very pleased with progress making. Physical Therapy Plan Frequency and Duration Frequency of Treatment 2x/Week Duration of Treatment 8 wks Plan of Care Start Date 11/10/19 Plan of Care End Date 01/09/20 Therapeutic Interventions Therapeutic Interventions Aquatic Therapy,Gait Training, Home Exercise Program,Manual Therapy,Neuromuscular Re- education,Orthotic/Prosthetic Management,Patient/Caregiver Education,Self-Care/Home Management,Taping,Therapeutic Activities,Therapeutic Exercises Modalities Cold Pack/Ice Massage,Electric Stimulation,Hot Packs, Infrared Therapy,Iontophoresis ,Ultrasound Next Visit Focus/Plan Next Note Type Treatment Note Next Visit Plan Assess reponse to last tx: balance obstacle course/ shuttle balance. Continue per PT POC: stretching, strengthening, and pain management techniques. If ok. [ End ]
--- NOTE | 2019-12-28 15:58 | PT.OTN ---
Current Diagnoses Pain in left knee (12/28/19) Physical Therapy Treatment Note PT-OP-A Visit Information Start: 11/09/19 08:07 Freq: Status: Active Protocol: Document 12/28/19 08:59 AMB (Rec: 12/28/19 09:54 AMB [id number]) Out-Patient Physical Therapy Visit Information Visit Information Visit Type Treatment Note Visit Start Time 09:00 Visit Stop Time 09:45 Total Visit Minutes 45 Visit Number 14 Number of FLAME HARDENING MACHINE SETTER Visits 0 PT-OP-B Current Condition Start: 11/09/19 08:07 Freq: Status: Active Protocol: Document 11/10/19 09:05 SAK (Rec: 11/10/19 09:08 SAK [id number]) Current Condition History of Current Condition Onset Date 09/26/19 Current Complaints left knee pain History of Current Condition walking dog, dog went after animal, pulled hard and felt immediate pain in his knee, like maybe it hyperextended. Patient reports pain bottom of kneecap and lateral knee, leg feels loose, sometimes sensation of cracking. Has tried several knee braces, neoprene most helpful but hasn 't worn for awhile due to reported swelling when he wears. Denies leg giving way though does report that it appears to lock at times. Occasionally uses cane Prior Treatments and Tests x-ray negative for fractures, brace, ice (not recently) Treatment Goals Patient/Caregiver Goals Minimize pain, be able to resume prior activity level without pain Prior Functional Status Baseline Function- ADL's Independent Baseline Function- Mobility Independent Baseline Function- Gait indep, no pain Current Functional Impairments (Reported) Functional Limitations- ADL's painful Functional Limitations- Mobility/Gait painful PT-OP-C Subjective Start: 11/09/19 08:07 Freq: Status: Active Protocol: Document 12/28/19 08:59 AMB (Rec: 12/28/19 10:06 AMB [id number]) OP-PT Subjective Patient Comments Patient Comments Pt states overall he is feeling good with his knee. He does continue to notice it when pushing his green yard waste been up his driveway which is up an incline. PT-OP-F Manual Assessment Start: 11/09/19 08:07 Freq: Status: Active Protocol: Document 11/10/19 09:05 SAK (Rec: 11/10/19 12:07 SAK [id number]) Manual Assessments Soft Tissue Assessment Soft Tissue Mobility Assessment palpable soft tissue tightness left quad, IT band left Joint Mobility Assessment Joint Mobility Assessment decreased patellofemoral mobility all directions PT-OP-G Mobility & Gait Start: 11/09/19 08:07 Freq: Status: Active Protocol: Document 11/10/19 09:05 SAK (Rec: 11/10/19 12:07 [facility] [id number]) OP Gait Assessment Gait Gait Assistance Required: Independent Assistive Devices Assistive Device None Gait Deviations General Gait Pattern Antalgic Factors Limiting Gait Function Factors Limiting Gait Function Pain Stair Climbing Evaluation Technique/Endurance Stair Climbing Technique Step to Step Comments Stair Climbing Comments painful PT-OP-H Neuro Start: 11/09/19 08:07 Freq: Status: Active Protocol: Document 11/10/19 09:05 [facility] (Rec: 11/10/19 12:07 [facility] [id number]) Sensation Evaluation Gross Sensation Gross Sensation WNL PT-OP-J Posture/Palpation/Skin Start: 11/09/19 08:07 Freq: Status: Active Protocol: Document 11/10/19 09:05 [facility] (Rec: 11/10/19 12:07 [facility] [id number]) Posture Evaluation Position Standing Weight Distribution Weight Shifted Right Knee Posture (L) Genu Varus,(R) Genu Varus Ankle/Foot Posture (L) Neutral,(R) Neutral Palpation Assessment Location left knee Palpation Location infrapellar, lateral patellar region Palpation Findings Edema,Soft Tissue Tightness, Tenderness Skin Assessment Edema Assessment left knee Edema Type Non-Pitting Edema Degree 2+ Subjective Edema Description Tightness Comments no erythema PT-OP-K Range of Motion Start: 11/09/19 08:07 Freq: Status: Active Protocol: Document 11/10/19 09:05 [facility] (Rec: 11/10/19 12:07 [facility] [id number]) Knee Goniometric Range of Motion Knee Left Knee ROM WFL No Flexion Active (degrees) 98 Extension Active (degrees) 0 Right Knee ROM WFL Yes Knee ROM Limitations Knee ROM Limitations Soft Tissue Tightness,Swelling Ankle and Foot Goniometric Range of Motion Ankle and Foot christofer Ankle/Foot ROM WFL Yes PT-OP-L Special Tests Start: 11/09/19 08:07 Freq: Status: Active Protocol: Document 11/10/19 09:05 SAK (Rec: 11/10/19 12:07 SAK [id number]) Special Tests Knee Special Tests Varus- 25 Degrees Test Results negative Valgus- 25 Degrees Test Results negative Patellar Grind Test Test Results negative Posterior Draw Test Results negative Anterior Draw Test Results negative PT-OP-M Strength Start: 11/09/19 08:07 Freq: Status: Active Protocol: Document 11/10/19 09:05 SAK (Rec: 11/10/19 16:05 SAK [id number]) Hip Strength Hip Manual Muscle Testing Left Flexion (L2) 4+ Good+ Extension (S1) 4 Good Abduction 4+ Good+ Right Flexion (L2) 4+ Good+ Extension (S1) 4 Good Abduction 4+ Good+ Knee Strength Knee Manual Muscle Testing Left Flexion (S2) 4- Good- Extension (L3) 4 Good Right Flexion (S2) 5 Normal Extension (L3) 5 Normal PT-OP-Q Treatments Start: 11/09/19 08:07 Freq: Status: Active Protocol: Document 12/28/19 08:59 AMB (Rec: 12/28/19 09:54 AMB [id number]) Cardio Equipment Bicycle (Upright) Duration (Minutes) 8 Resistance 8 Seat Position 4 Gym Equipment Shuttle Recovery Unilateral Squats Details cued knee alignment more medical Resistance 75 Shuttle Recovery Platform Stable Reps/Time 3x15 Bilateral Squats Details ball between B knee (VMO fac to dec med jt discomfort- better) Resistance 112 Shuttle Recovery Platform Stable Reps/Time 3x15 Therapeutic Exercises Prone Exercises quad stretch Prone Exercise Name stretch with sheet around ankle Side bilateral Reps/Minutes 2x60 sec/side Standing Exercises stationary lunge Standing Exercise Name Max cuing for set up- only in PT for now Reps/Minutes x5 Comments knee with and behind toes. quad stretch Side bilateral Equipment Used chair, foot propped up Reps/Minutes 1x30 Comments cued lean back not bend/squat form opposite leg on floor Side Steps (Abd) Standing Exercise Name Abduction Resistance #4 Reps/Minutes 2 laps of ballet bar each, PRN contact crab walk f/b/s Resistance Tb #2 at ankles ( G TB) Reps/Minutes 20 ft x2 laps each direction Comments cued decrease side bend trunk more LE reach and foot clear trail LE PT-OP-R Modalities Start: 11/09/19 08:07 Freq: Status: Active Protocol: Document 11/10/19 09:05 SAK (Rec: 11/10/19 16:05 SAK [id number]) Electric Stimulation Electric Stimulation Interferential Current (IFC) Body Location left knee Duration (Minutes) 12 Intensity 17 Target/Sweep Sweep Patient Position Hooklying Combined With Heat/Cold Cold Pack PT-OP-T Assessment and Plan Start: 11/09/19 08:07 Freq: Status: Active Protocol: Document 12/28/19 08:59 AMB (Rec: 12/28/19 09:54 AMB [id number]) Physical Therapy Assessment Assessment Summary Assessment Pt describes one instance of knee pain with forward lunges, but otherwise did well with exercises. Balance is still challenging, but does not increase knee pain. Offered alternate quad stretch in prone if pt prefers. Physical Therapy Plan Next Visit Focus/Plan Next Note Type Treatment Note Next Visit Plan Plan on focusing on upcoming d /c with finetuning HEP
--- NOTE | 2019-12-30 09:45 | PT.OTN ---
Current Diagnoses Pain in left knee (12/30/19) Physical Therapy Treatment Note PT-OP-A Visit Information Start: 11/09/19 08:07 Freq: Status: Active Protocol: Document 12/30/19 09:04 SP (Rec: 12/30/19 09:48 SP [id number]) Out-Patient Physical Therapy Visit Information Visit Information Visit Type Treatment Note Visit Start Time 09:04 Visit Stop Time 09:45 Total Visit Minutes 41 Visit Number 15 Number of VISITOR SERVICES ASSOCIATE Visits 1 PT-OP-B Current Condition Start: 11/09/19 08:07 Freq: Status: Active Protocol: Document 11/10/19 09:05 SAK (Rec: 11/10/19 09:08 SAK [id number]) Current Condition History of Current Condition Onset Date 09/26/19 Current Complaints left knee pain History of Current Condition walking dog, dog went after animal, pulled hard and felt immediate pain in his knee, like maybe it hyperextended. Patient reports pain bottom of kneecap and lateral knee, leg feels loose, sometimes sensation of cracking. Has tried several knee braces, neoprene most helpful but hasn 't worn for awhile due to reported swelling when he wears. Denies leg giving way though does report that it appears to lock at times. Occasionally uses cane Prior Treatments and Tests x-ray negative for fractures, brace, ice (not recently) Treatment Goals Patient/Caregiver Goals Minimize pain, be able to resume prior activity level without pain Prior Functional Status Baseline Function- ADL's Independent Baseline Function- Mobility Independent Baseline Function- Gait indep, no pain Current Functional Impairments (Reported) Functional Limitations- ADL's painful Functional Limitations- Mobility/Gait painful PT-OP-C Subjective Start: 11/09/19 08:07 Freq: Status: Active Protocol: Document 12/30/19 09:04 SP (Rec: 12/30/19 09:48 SP [id number]) OP-PT Subjective Patient Comments Patient Comments Pt states overall he is feeling good with his knee. He does continue to notice it when pushing his green yard waste been up his driveway which is up an incline, decline. PT-OP-F Manual Assessment Start: 11/09/19 08:07 Freq: Status: Active Protocol: Document 11/10/19 09:05 SAK (Rec: 11/10/19 12:07 SAK [id number]) Manual Assessments Soft Tissue Assessment Soft Tissue Mobility Assessment palpable soft tissue tightness left quad, IT band left Joint Mobility Assessment Joint Mobility Assessment decreased patellofemoral mobility all directions PT-OP-G Mobility & Gait Start: 11/09/19 08:07 Freq: Status: Active Protocol: Document 11/10/19 09:05 SAK (Rec: 11/10/19 12:07 [facility] [id number]) OP Gait Assessment Gait Gait Assistance Required: Independent Assistive Devices Assistive Device None Gait Deviations General Gait Pattern Antalgic Factors Limiting Gait Function Factors Limiting Gait Function Pain Stair Climbing Evaluation Technique/Endurance Stair Climbing Technique Step to Step Comments Stair Climbing Comments painful PT-OP-H Neuro Start: 11/09/19 08:07 Freq: Status: Active Protocol: Document 11/10/19 09:05 [facility] (Rec: 11/10/19 12:07 [facility] [id number]) Sensation Evaluation Gross Sensation Gross Sensation WNL PT-OP-J Posture/Palpation/Skin Start: 11/09/19 08:07 Freq: Status: Active Protocol: Document 11/10/19 09:05 [facility] (Rec: 11/10/19 12:07 [facility] [id number]) Posture Evaluation Position Standing Weight Distribution Weight Shifted Right Knee Posture (L) Genu Varus,(R) Genu Varus Ankle/Foot Posture (L) Neutral,(R) Neutral Palpation Assessment Location left knee Palpation Location infrapellar, lateral patellar region Palpation Findings Edema,Soft Tissue Tightness, Tenderness Skin Assessment Edema Assessment left knee Edema Type Non-Pitting Edema Degree 2+ Subjective Edema Description Tightness Comments no erythema PT-OP-K Range of Motion Start: 11/09/19 08:07 Freq: Status: Active Protocol: Document 11/10/19 09:05 [facility] (Rec: 11/10/19 12:07 [facility] [id number]) Knee Goniometric Range of Motion Knee Left Knee ROM WFL No Flexion Active (degrees) 98 Extension Active (degrees) 0 Right Knee ROM WFL Yes Knee ROM Limitations Knee ROM Limitations Soft Tissue Tightness,Swelling Ankle and Foot Goniometric Range of Motion Ankle and Foot christofer Ankle/Foot ROM WFL Yes PT-OP-L Special Tests Start: 11/09/19 08:07 Freq: Status: Active Protocol: Document 11/10/19 09:05 SAK (Rec: 11/10/19 12:07 SAK [id number]) Special Tests Knee Special Tests Varus- 25 Degrees Test Results negative Valgus- 25 Degrees Test Results negative Patellar Grind Test Test Results negative Posterior Draw Test Results negative Anterior Draw Test Results negative PT-OP-M Strength Start: 11/09/19 08:07 Freq: Status: Active Protocol: Document 11/10/19 09:05 SAK (Rec: 11/10/19 16:05 SAK [id number]) Hip Strength Hip Manual Muscle Testing Left Flexion (L2) 4+ Good+ Extension (S1) 4 Good Abduction 4+ Good+ Right Flexion (L2) 4+ Good+ Extension (S1) 4 Good Abduction 4+ Good+ Knee Strength Knee Manual Muscle Testing Left Flexion (S2) 4- Good- Extension (L3) 4 Good Right Flexion (S2) 5 Normal Extension (L3) 5 Normal PT-OP-Q Treatments Start: 11/09/19 08:07 Freq: Status: Active Protocol: Document 12/30/19 09:04 SP (Rec: 12/30/19 09:48 SP [id number]) Cardio Equipment Bicycle (Upright) Duration (Minutes) 8 Resistance 8 Seat Position 4 Therapeutic Exercises Prone Exercises quad stretch Prone Exercise Name stretch with belt around ankle Side bilateral Reps/Minutes 2x60 sec/side Comments cued B hips flat on table, awareness of decrease CS ext looking up Standing Exercises SLS Standing Exercise Name difficult but wants to perform , PT only Equipment Used near rail for safety Reps/Minutes 4 sec Comments cued glut facilitation and core facilitation, COG over MARYAN righting quad stretch Side bilateral Equipment Used chair, foot propped up. Beninese ball. Reps/Minutes 1x30 Comments cued lean back not bend/squat form opposite leg on floor. crab walk f/b/s Resistance TB 2 at ankles (G TB) Reps/Minutes 15 ft x2 laps each direction Comments cued decrease side bend and feet parallel Neuro Re-Education Treatment Balance Activities obstacle course Surface uneven Equipment oval pads, hurdles, incline/ decline wedges, Reps/Duration 6 laps forward Comments Min A initially then CGA with cuing for slow pacing and step control improved self corrections COG over MARYAN . PT-OP-R Modalities Start: 11/09/19 08:07 Freq: Status: Active Protocol: Document 11/10/19 09:05 SAK (Rec: 11/10/19 16:05 SAK [id number]) Electric Stimulation Electric Stimulation Interferential Current (IFC) Body Location left knee Duration (Minutes) 12 Intensity 17 Target/Sweep Sweep Patient Position Hooklying Combined With Heat/Cold Cold Pack PT-OP-T Assessment and Plan Start: 11/09/19 08:07 Freq: Status: Active Protocol: Document 12/30/19 09:04 SP (Rec: 12/30/19 09:48 SP [id number]) Physical Therapy Assessment Goals Three Impairment antalgic gait [employer] Supervisor Goal (LTG) Patient able to ambulate without limp and with step over step gait on stairs LTG Duration 01/09/20 Two Impairment weakness left knee [employer] Supervisor Goal (LTG) strength left knee 5/5 to allow patient to return to usual activities LTG Duration 01/09/20 One Impairment pain left knee limiting patient mobility Residential Goal (LTG) decrease pain to no greater than 1/10 during all usual activity including taking his dog for a walk 12/06/19 Met Goal: <=1/10 L knee pain on walks w/ dog LTG Duration 01/09/20 Assessment Summary Assessment Pt tolerated tx well, reported slight discomfort medial L knee during obstacle course but doesn't restrict him from activity, just notice somehting there irritated. Pt reports over all doing so much better due to therapy and feels will be able to do on own soon. Next tx review HEP for I, still requires cuing for some set up and proper knee alignment. Physical Therapy Plan Frequency and Duration Frequency of Treatment 2x/Week Duration of Treatment 8 wks Plan of Care Start Date 11/10/19 Plan of Care End Date 01/09/20 Therapeutic Interventions Therapeutic Interventions Aquatic Therapy,Gait Training, Home Exercise Program,Manual Therapy,Neuromuscular Re- education,Orthotic/Prosthetic Management,Patient/Caregiver Education,Self-Care/Home Management,Taping,Therapeutic Activities,Therapeutic Exercises Modalities Cold Pack/Ice Massage,Electric Stimulation,Hot Packs, Infrared Therapy,Iontophoresis ,Ultrasound Next Visit Focus/Plan Next Note Type Treatment Note Next Visit Plan Plan on focusing on upcoming d /c with finetuning HEP
--- NOTE | 2020-01-04 09:06 | PT.OTN ---
Current Diagnoses Pain in left knee (01/04/20) Physical Therapy Treatment Note PT-OP-A Visit Information Start: 11/09/19 08:07 Freq: Status: Active Protocol: Document 01/04/20 08:17 SAK (Rec: 01/04/20 09:06 SAK [id number]) Out-Patient Physical Therapy Visit Information Visit Information Visit Type Treatment Note Visit Start Time 08:10 Visit Stop Time 08:46 Total Visit Minutes 51 Visit Number 16 Number of MARTIAL ARTS INSTRUCTOR Visits 0 PT-OP-B Current Condition Start: 11/09/19 08:07 Freq: Status: Active Protocol: Document 11/10/19 09:05 SAK (Rec: 11/10/19 09:08 SAK [id number]) Current Condition History of Current Condition Onset Date 09/26/19 Current Complaints left knee pain History of Current Condition walking dog, dog went after animal, pulled hard and felt immediate pain in his knee, like maybe it hyperextended. Patient reports pain bottom of kneecap and lateral knee, leg feels loose, sometimes sensation of cracking. Has tried several knee braces, neoprene most helpful but hasn 't worn for awhile due to reported swelling when he wears. Denies leg giving way though does report that it appears to lock at times. Occasionally uses cane Prior Treatments and Tests x-ray negative for fractures, brace, ice (not recently) Treatment Goals Patient/Caregiver Goals Minimize pain, be able to resume prior activity level without pain Prior Functional Status Baseline Function- ADL's Independent Baseline Function- Mobility Independent Baseline Function- Gait indep, no pain Current Functional Impairments (Reported) Functional Limitations- ADL's painful Functional Limitations- Mobility/Gait painful PT-OP-C Subjective Start: 11/09/19 08:07 Freq: Status: Active Protocol: Document 01/04/20 08:17 SAK (Rec: 01/04/20 09:06 SAK [id number]) OP-PT Subjective Patient Comments Patient Comments Pain 1/10 when walking on incline. Favorite exercise is prone quad stretch with strap . PT-OP-F Manual Assessment Start: 11/09/19 08:07 Freq: Status: Active Protocol: Document 11/10/19 09:05 SAK (Rec: 11/10/19 12:07 SAK [id number]) Manual Assessments Soft Tissue Assessment Soft Tissue Mobility Assessment palpable soft tissue tightness left quad, IT band left Joint Mobility Assessment Joint Mobility Assessment decreased patellofemoral mobility all directions PT-OP-G Mobility & Gait Start: 11/09/19 08:07 Freq: Status: Active Protocol: Document 11/10/19 09:05 SAK (Rec: 11/10/19 12:07 SAK [id number]) OP Gait Assessment Gait Gait Assistance Required: Independent Assistive Devices Assistive Device None Gait Deviations General Gait Pattern Antalgic Factors Limiting Gait Function Factors Limiting Gait Function Pain Stair Climbing Evaluation Technique/Endurance Stair Climbing Technique Step to Step Comments Stair Climbing Comments painful PT-OP-H Neuro Start: 11/09/19 08:07 Freq: Status: Active Protocol: Document 11/10/19 09:05 SAK (Rec: 11/10/19 12:07 SAK [id number]) Sensation Evaluation Gross Sensation Gross Sensation WNL PT-OP-J Posture/Palpation/Skin Start: 11/09/19 08:07 Freq: Status: Active Protocol: Document 11/10/19 09:05 SAK (Rec: 11/10/19 12:07 SAK [id number]) Posture Evaluation Position Standing Weight Distribution Weight Shifted Right Knee Posture (L) Genu Varus,(R) Genu Varus Ankle/Foot Posture (L) Neutral,(R) Neutral Palpation Assessment Location left knee Palpation Location infrapellar, lateral patellar region Palpation Findings Edema,Soft Tissue Tightness, Tenderness Skin Assessment Edema Assessment left knee Edema Type Non-Pitting Edema Degree 2+ Subjective Edema Description Tightness Comments no erythema PT-OP-K Range of Motion Start: 11/09/19 08:07 Freq: Status: Active Protocol: Document 11/10/19 09:05 SAK (Rec: 11/10/19 12:07 [facility] [id number]) Knee Goniometric Range of Motion Knee Left Knee ROM WFL No Flexion Active (degrees) 98 Extension Active (degrees) 0 Right Knee ROM WFL Yes Knee ROM Limitations Knee ROM Limitations Soft Tissue Tightness,Swelling Ankle and Foot Goniometric Range of Motion Ankle and Foot christofer Ankle/Foot ROM WFL Yes PT-OP-L Special Tests Start: 11/09/19 08:07 Freq: Status: Active Protocol: Document 11/10/19 09:05 SAK (Rec: 11/10/19 12:07 SAK [id number]) Special Tests Knee Special Tests Varus- 25 Degrees Test Results negative Valgus- 25 Degrees Test Results negative Patellar Grind Test Test Results negative Posterior Draw Test Results negative Anterior Draw Test Results negative PT-OP-M Strength Start: 11/09/19 08:07 Freq: Status: Active Protocol: Document 11/10/19 09:05 [facility] (Rec: 11/10/19 16:05 [facility] [id number]) Hip Strength Hip Manual Muscle Testing Left Flexion (L2) 4+ Good+ Extension (S1) 4 Good Abduction 4+ Good+ Right Flexion (L2) 4+ Good+ Extension (S1) 4 Good Abduction 4+ Good+ Knee Strength Knee Manual Muscle Testing Left Flexion (S2) 4- Good- Extension (L3) 4 Good Right Flexion (S2) 5 Normal Extension (L3) 5 Normal PT-OP-Q Treatments Start: 11/09/19 08:07 Freq: Status: Active Protocol: Document 01/04/20 08:17 [facility] (Rec: 01/04/20 09:06 [facility] [id number]) Cardio Equipment Bicycle (Upright) Duration (Minutes) 10 Resistance 8 Seat Position 4 Treadmill Duration (Minutes) 5 Speed 1.1 Incline 4 Other cues for LE alignment Therapeutic Exercises Prone Exercises quad stretch Prone Exercise Name stretch with belt around ankle Side bilateral Reps/Minutes 2x60 sec/side Comments cued B hips flat on table, awareness of decrease CS ext looking up Sitting Exercises HS stretch Side left Reps/Minutes 30 x3 Standing Exercises SLS Standing Exercise Name SLS with UE support Equipment Used near rail for safety Reps/Minutes 4 sec Comments cued glut facilitation and core facilitation, COG over MARYAN righting crab walk f/b/s Resistance TB 2 at ankles (G TB) Reps/Minutes 15 ft x2 laps each direction Comments cued decrease side bend and feet parallel Neuro Re-Education Treatment Balance Activities tandem stand Surface firm Reps/Duration 2 min Comments min to mod UE support obstacle course Surface uneven Equipment oval pads, hurdles, incline/ decline wedges, Reps/Duration 6 laps forward Comments Min A initially then CGA with cuing for slow pacing and step control improved self corrections COG over MARYAN . PT-OP-R Modalities Start: 11/09/19 08:07 Freq: Status: Active Protocol: Document 11/10/19 09:05 [facility] (Rec: 11/10/19 16:05 [facility] [id number]) Electric Stimulation Electric Stimulation Interferential Current (IFC) Body Location left knee Duration (Minutes) 12 Intensity 17 Target/Sweep Sweep Patient Position Hooklying Combined With Heat/Cold Cold Pack PT-OP-T Assessment and Plan Start: 11/09/19 08:07 Freq: Status: Active Protocol: Document 01/04/20 08:17 [facility] (Rec: 01/04/20 09:06 [facility] [id number]) Physical Therapy Assessment Goals Three Impairment antalgic gait Cook Larder Goal (LTG) Patient able to ambulate without limp and with step over step gait on stairs LTG Duration 01/09/20 Two Impairment weakness left knee Usp Goal (LTG) strength left knee 5/5 to allow patient to return to usual activities LTG Duration 01/09/20 One Impairment pain left knee limiting patient mobility Cook Larder Goal (LTG) decrease pain to no greater than 1/10 during all usual activity including taking his dog for a walk 12/06/19 Met Goal: <=1/10 L knee pain on walks w/ dog LTG Duration 01/09/20 Assessment Summary Assessment No pain on treadmill at 4% with cues for alignment and correct muscle activation sequence. Needs some cues for alignment with all exercises but demonstrates good understanding. Should be ready for discharge after 1 further PT appointment. Physical Therapy Plan Frequency and Duration Frequency of Treatment 2x/Week Duration of Treatment 8 wks Plan of Care Start Date 11/10/19 Plan of Care End Date 01/09/20 Therapeutic Interventions Therapeutic Interventions Aquatic Therapy,Gait Training, Home Exercise Program,Manual Therapy,Neuromuscular Re- education,Orthotic/Prosthetic Management,Patient/Caregiver Education,Self-Care/Home Management,Taping,Therapeutic Activities,Therapeutic Exercises Modalities Cold Pack/Ice Massage,Electric Stimulation,Hot Packs, Infrared Therapy,Iontophoresis ,Ultrasound Next Visit Focus/Plan Next Note Type Treatment Note Next Visit Plan discharge after 1 further PT session
--- NOTE | 2020-01-06 08:27 | PT.OPDS ---
Current Diagnoses Pain in left knee (01/04/20) Visit Care Team Role Provider Type Gilmar Darnell MD Attending Provider Physician Primary Care Provider Referring Provider Specialty: Internal Medicine Address: [address] [place] [address], [address], [place], [address] Email: [email or web address] Visit Number Visit Number 16 Discharge Summary PT-OP-B Current Condition Start: 11/09/19 08:07 Freq: Status: Active Protocol: Document 11/10/19 09:05 SAK (Rec: 11/10/19 09:08 SAK [id number]) Current Condition History of Current Condition Onset Date 09/26/19 Current Complaints left knee pain History of Current Condition walking dog, dog went after animal, pulled hard and felt immediate pain in his knee, like maybe it hyperextended. Patient reports pain bottom of kneecap and lateral knee, leg feels loose, sometimes sensation of cracking. Has tried several knee braces, neoprene most helpful but hasn 't worn for awhile due to reported swelling when he wears. Denies leg giving way though does report that it appears to lock at times. Occasionally uses cane Prior Treatments and Tests x-ray negative for fractures, brace, ice (not recently) Treatment Goals Patient/Caregiver Goals Minimize pain, be able to resume prior activity level without pain Prior Functional Status Baseline Function- ADL's Independent Baseline Function- Mobility Independent Baseline Function- Gait indep, no pain Current Functional Impairments (Reported) Functional Limitations- ADL's painful Functional Limitations- Mobility/Gait painful PT-OP-C Subjective Start: 11/09/19 08:07 Freq: Status: Active Protocol: Document 01/04/20 08:17 SAK (Rec: 01/04/20 09:06 SAK [id number]) OP-PT Subjective Patient Comments Patient Comments Pain 1/10 when walking on incline. Favorite exercise is prone quad stretch with strap . PT-OP-F Manual Assessment Start: 11/09/19 08:07 Freq: Status: Active Protocol: Document 11/10/19 09:05 SAK (Rec: 11/10/19 12:07 SAK [id number]) Manual Assessments Soft Tissue Assessment Soft Tissue Mobility Assessment palpable soft tissue tightness left quad, IT band left Joint Mobility Assessment Joint Mobility Assessment decreased patellofemoral mobility all directions PT-OP-G Mobility & Gait Start: 11/09/19 08:07 Freq: Status: Active Protocol: Document 11/10/19 09:05 SAK (Rec: 11/10/19 12:07 SAK [id number]) OP Gait Assessment Gait Gait Assistance Required: Independent Assistive Devices Assistive Device None Gait Deviations General Gait Pattern Antalgic Factors Limiting Gait Function Factors Limiting Gait Function Pain Stair Climbing Evaluation Technique/Endurance Stair Climbing Technique Step to Step Comments Stair Climbing Comments painful PT-OP-H Neuro Start: 11/09/19 08:07 Freq: Status: Active Protocol: Document 11/10/19 09:05 SAK (Rec: 11/10/19 12:07 SAK [id number]) Sensation Evaluation Gross Sensation Gross Sensation WNL PT-OP-J Posture/Palpation/Skin Start: 11/09/19 08:07 Freq: Status: Active Protocol: Document 11/10/19 09:05 SAK (Rec: 11/10/19 12:07 SAK [id number]) Posture Evaluation Position Standing Weight Distribution Weight Shifted Right Knee Posture (L) Genu Varus,(R) Genu Varus Ankle/Foot Posture (L) Neutral,(R) Neutral Palpation Assessment Location left knee Palpation Location infrapellar, lateral patellar region Palpation Findings Edema,Soft Tissue Tightness, Tenderness Skin Assessment Edema Assessment left knee Edema Type Non-Pitting Edema Degree 2+ Subjective Edema Description Tightness Comments no erythema PT-OP-K Range of Motion Start: 11/09/19 08:07 Freq: Status: Active Protocol: Document 11/10/19 09:05 SAK (Rec: 11/10/19 12:07 SAK [id number]) Knee Goniometric Range of Motion Knee Left Knee ROM WFL No Flexion Active (degrees) 98 Extension Active (degrees) 0 Right Knee ROM WFL Yes Knee ROM Limitations Knee ROM Limitations Soft Tissue Tightness,Swelling Ankle and Foot Goniometric Range of Motion Ankle and Foot christofer Ankle/Foot ROM WFL Yes PT-OP-L Special Tests Start: 11/09/19 08:07 Freq: Status: Active Protocol: Document 11/10/19 09:05 SAK (Rec: 11/10/19 12:07 SAK [id number]) Special Tests Knee Special Tests Varus- 25 Degrees Test Results negative Valgus- 25 Degrees Test Results negative Patellar Grind Test Test Results negative Posterior Draw Test Results negative Anterior Draw Test Results negative PT-OP-M Strength Start: 11/09/19 08:07 Freq: Status: Active Protocol: Document 11/10/19 09:05 [facility] (Rec: 11/10/19 16:05 [facility] [id number]) Hip Strength Hip Manual Muscle Testing Left Flexion (L2) 4+ Good+ Extension (S1) 4 Good Abduction 4+ Good+ Right Flexion (L2) 4+ Good+ Extension (S1) 4 Good Abduction 4+ Good+ Knee Strength Knee Manual Muscle Testing Left Flexion (S2) 4- Good- Extension (L3) 4 Good Right Flexion (S2) 5 Normal Extension (L3) 5 Normal PT-OP-T Assessment and Plan Start: 11/09/19 08:07 Freq: Status: Active Protocol: Document 01/06/20 08:24 [facility] (Rec: 01/06/20 08:27 [facility] [id number]) Physical Therapy Plan Discharge Physical Therapy Discharge Comments Unable to do last PT visit due to patient's new onset sinus symptoms. Patient agreeable to today being last PT treatment. Discharge from PT.
== END 2020-02-25 15:00 ==
LOC: PHYS 08:15
PROVIDERS: PCP Internal Medicine; Referring Provider Internal Medicine; Visit Provider Internal Medicine
DX: M25.562 Pain in left knee (principal)
CPT/HCPCS: 97014; 97035; 97110; 97112; 97140; 97162; G0283

== ENCOUNTER → 2020-11-13 07:46 | Outpatient (CLI) | payer MEDICARE, OTHER, SELFPAY ==
[2020-11-13 09:03] LABS: Alanine Aminotransferase 28 IU/L (<50); Albumin 4.4 g/dL (3.5-5.0); Albumin Globulin Ratio 1.6 (1.0-2.8); Alkaline Phosphatase 64 U/L (38-126); Aspartate Aminotransferase 39 IU/L (17-59); BUN Creatinine Ratio 25.3 (6-22); Bilirubin Total 0.9 mg/dL (0.2-1.3); Blood Urea Nitrogen 25 mg/dL (9-20); Calcium 9.6 mg/dL (8.4-10.2); Carbon Dioxide 28 mmol/L (22-32); Chloride 102 mmol/L (98-107); Cholesterol 193 mg/dL (140-199); Estimated Glomerular Filt Rate > 60.0 mL/min (>60); Globulin 2.7 g/dL (1.7-4.1); Glucose 123 mg/dL (80-110); HDL Cholesterol 39 mg/dL (40-60); HEMOLYSIS < 15 (0-50); LDL Cholesterol Calculated 87 mg/dL (<100); Potassium 4.5 mmol/L (3.4-5.1); Sodium 137 mmol/L (137-145); Total Protein 7.1 g/dL (6.3-8.2); Triglycerides 336 mg/dL (35-150)
== END ==
PROVIDERS: PCP Internal Medicine; Referring Provider Internal Medicine; Visit Provider Internal Medicine
DX: F41.1 Generalized anxiety disorder (principal); I10 Essential (primary) hypertension; Z12.5 Encounter for screening for malignant neoplasm of prostate; Z13.220 Encounter for screening for lipoid disorders
CPT/HCPCS: 36415; 80053; 80061; G0103

== ENCOUNTER → 2021-11-23 06:58 | Outpatient (CLI) | payer MEDICARE, OTHER, SELFPAY ==
[2021-11-23 10:35] LABS: Alanine Aminotransferase 37 IU/L (<50); Albumin 3.9 g/dL (3.5-5.0); Albumin Globulin Ratio 1.6 (1.0-2.8); Alkaline Phosphatase 85 U/L (38-126); Aspartate Aminotransferase 46 IU/L (17-59); Bilirubin Total 0.4 mg/dL (0.2-1.3); Blood Urea Nitrogen 23 mg/dL (9-20); Calcium 9.1 mg/dL (8.4-10.2); Carbon Dioxide 26 mmol/L (22-32); Chloride 106 mmol/L (98-107); Cholesterol 144 mg/dL (140-199); Estimated Glomerular Filt Rate > 60 mL/min (>60); Globulin 2.5 g/dL (1.7-4.1); Glucose 149 mg/dL (80-110); HDL Cholesterol 26 mg/dL (40-60); HEMOLYSIS < 15 (0-50); LDL Cholesterol Calculated 47 mg/dL (<100); Potassium 3.9 mmol/L (3.4-5.1); Sodium 141 mmol/L (137-145); Total Protein 6.4 g/dL (6.3-8.2); Triglycerides 355 mg/dL (35-150)
[2021-11-23 10:47] LABS: LDL Cholesterol Direct 65 mg/dL (<100)
== END ==
PROVIDERS: PCP Internal Medicine; Referring Provider Internal Medicine; Visit Provider Internal Medicine
DX: E78.1 Pure hyperglyceridemia (principal); F33.0 Major depressive disorder, recurrent, mild; F41.1 Generalized anxiety disorder; I10 Essential (primary) hypertension
CPT/HCPCS: 36415; 80053; 80061; 83721

== ENCOUNTER → 2022-05-28 09:44 | Outpatient (CLI) | payer MEDICARE, OTHER, SELFPAY ==
[2022-05-28 10:38] LABS: Alanine Aminotransferase 36 IU/L (<50); Albumin 4.3 g/dL (3.5-5.0); Albumin Globulin Ratio 1.4 (1.0-2.8); Alkaline Phosphatase 75 U/L (38-126); Aspartate Aminotransferase 48 IU/L (17-59); Bilirubin Total 0.9 mg/dL (0.2-1.3); Blood Urea Nitrogen 18 mg/dL (9-20); Calcium 9.2 mg/dL (8.4-10.2); Carbon Dioxide 27 mmol/L (22-32); Chloride 104 mmol/L (98-107); Estimated Glomerular Filt Rate > 60 mL/min (>60); Glucose 111 mg/dL (80-110); HEMOLYSIS < 15 (0-50); Potassium 4.1 mmol/L (3.4-5.1); Sodium 138 mmol/L (137-145); Total Protein 7.3 g/dL (6.3-8.2)
[2022-05-29 04:35] LABS: Labcorp Hemoglobin (Hb) A1c 6.1 % (4.8-5.6)
== END ==
PROVIDERS: PCP Internal Medicine; Referring Provider Internal Medicine; Visit Provider Internal Medicine
DX: I10 Essential (primary) hypertension (principal); Z79.899 Other long term (current) drug therapy; R73.02 Impaired glucose tolerance (oral)
CPT/HCPCS: 36415; 80053; 83036

== ENCOUNTER → 2022-11-26 10:03 | Outpatient (CLI) | payer MEDICARE, OTHER, SELFPAY ==
[2022-11-26 11:18] LABS: Hemoglobin A1C% w Est Avg Glu 5.9 % (4.0-6.0)
[2022-11-26 11:24] LABS: Alanine Aminotransferase 32 IU/L (<50); Albumin 4.2 g/dL (3.5-5.0); Albumin Globulin Ratio 1.4 (1.0-2.8); Alkaline Phosphatase 91 U/L (38-126); Aspartate Aminotransferase 44 IU/L (17-59); Bilirubin Total 0.8 mg/dL (0.2-1.3); Blood Urea Nitrogen 20 mg/dL (9-20); Calcium 9.5 mg/dL (8.4-10.2); Carbon Dioxide 26 mmol/L (22-32); Chloride 102 mmol/L (98-107); Cholesterol 186 mg/dL (140-199); Estimated Glomerular Filt Rate > 60 mL/min (>60); Globulin 2.9 g/dL (1.7-4.1); Glucose 122 mg/dL (80-110); HDL Cholesterol 38 mg/dL (40-60); HEMOLYSIS < 15 (0-50); LDL Cholesterol Calculated 115 mg/dL (<100); Potassium 3.8 mmol/L (3.4-5.1); Sodium 137 mmol/L (137-145); Total Protein 7.1 g/dL (6.3-8.2); Triglycerides 164 mg/dL (35-150)
== END ==
PROVIDERS: PCP Internal Medicine; Referring Provider Internal Medicine; Visit Provider Internal Medicine
DX: R73.02 Impaired glucose tolerance (oral) (principal); I10 Essential (primary) hypertension; Z13.6 Encounter for screening for cardiovascular disorders; Z13.220 Encounter for screening for lipoid disorders
CPT/HCPCS: 36415; 80053; 80061; 83036

== ENCOUNTER → 2022-12-08 09:35 | Outpatient (CLI) | payer MEDICARE, OTHER, SELFPAY ==
--- NOTE | 2022-12-08 09:38 | DI.RAD.S_ITS ---
PROCEDURE: XR SHOULDER LT MIN 2V INDICATIONS: Fall TECHNIQUE: 3 views of the shoulder were acquired. COMPARISON: None. FINDINGS: Bones: No fractures or dislocations. No suspicious bony lesions. Visualized ribs appear intact. Soft tissues: No suspicious soft tissue calcifications. IMPRESSION: No visualized acute fracture or dislocation. However, if clinical concern and/or pain persist, short interval imaging followup in 7-10 days is recommended, as occult injury cannot be definitively excluded. Dictated by: Eleonora Anand M.D. on 12/08/2022 at 11:08 Approved by: Eleonora Anand M.D. on 12/08/2022 at 11:08
--- NOTE | 2022-12-08 09:38 | DI.RAD.S_ITS ---
PROCEDURE: XR CLAVICLE LT INDICATIONS: Fall TECHNIQUE: 2 views of the clavicle were acquired. COMPARISON: None. FINDINGS: Bones: No fractures or dislocations. No suspicious bony lesions. Soft tissues: No suspicious soft tissue calcifications. IMPRESSION: No visualized acute fracture or dislocation. However, if clinical concern and/or pain persist, short interval imaging followup in 7-10 days is recommended, as occult injury cannot be definitively excluded. Dictated by: Eleonora Anand M.D. on 12/08/2022 at 11:08 Approved by: Eleonora Anand M.D. on 12/08/2022 at 11:08
== END ==
PROVIDERS: PCP Internal Medicine; Referring Provider Nurse Practitioner Family; Visit Provider Nurse Practitioner Family
DX: S49.92XA Unspecified injury of left shoulder and upper arm, initial encounter (principal)
CPT/HCPCS: 73000; 73030

== ENCOUNTER → 2022-12-31 10:14 | Outpatient (CLI) | payer MEDICARE, OTHER, SELFPAY ==
--- NOTE | 2022-12-31 10:16 | DI.RAD.S_ITS ---
PROCEDURE: XR HAND RT MIN 3V INDICATIONS: Right hand pain/swelling TECHNIQUE: 3 views of the hand(s) acquired. COMPARISON: None. FINDINGS: Bones: No fractures or dislocations. 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 Subtle radiolucencies are noted involving ulnar aspect of 3rd and 4th metacarpal heads. Carpal bones are normally aligned. No suspicious bony lesions. Soft tissues: No suspicious soft tissue calcifications. 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 No fracture or dislocation. Questionable lucencies involving ulnar aspect of 3rd and 4th metacarpal heads which could represent erosion secondary to inflammatory arthropathy versus subcortical cysts, suggest clinical correlation. Dictated by: Eric Boyce M.D. on 12/31/2022 at 12:26 Approved by: Eric Bocye M.D. on 12/31/2022 at 12:28
== END ==
PROVIDERS: PCP Internal Medicine; Referring Provider Internal Medicine; Visit Provider Internal Medicine
DX: M79.641 Pain in right hand (principal)
CPT/HCPCS: 73130

== ENCOUNTER 2023-03-15 10:17 | Emergency (ER) | payer OTHER, SELFPAY ==
[2023-03-15 10:23] VITALS: BP 130/68; PULSE 76; RESP 14; TEMP 36.6; O2SAT 94; BMI 34.9
[2023-03-15 11:15] LABS: COVID19 -Nasal RAPID POSITIVE (Negative)
--- NOTE | 2023-03-15 11:30 | ED_ITS ---
HPI - General Adult General Chief complaint: Fever Stated complaint: thinks he has covid Time Seen by Provider: 03/15/23 10:33 Source: patient Mode of arrival: Ambulatory History of Present Illness HPI narrative: Patient is a 77-year-old male who is here for evaluation of approximately 6-7 days of fatigue, body aches, dizziness and weakness. He actually has had symptoms for longer than that. His tested positive for COVID. He has not having any problems breathing. No vomiting. No skin rashes. Related Data Home Medications Medication Instructions Recorded Confirmed multivitamin 1 tab PO DAILY ##0 08/08/07 01/14/23 aspirin 325 mg tablet,delayed 325 mg PO DAILY 12/05/17 01/14/23 release ibuprofen 200 mg tablet (Advil) 200 mg PO BID #0 tabs 05/28/22 01/14/23 Previous Rx's Medication Instructions Recorded citalopram 40 mg tablet 40 mg PO DAILY #90 tabs 11/11/22 clonazepam 1 mg tablet 1 mg PO BID #180 tabs 11/11/22 bupropion HCl 150 mg 24 hr tablet, 150 mg PO QAM #90 tabs 12/03/22 extended release amlodipine 10 mg tablet 10 mg PO DAILY #90 tabs 01/13/23 hydrochlorothiazide 25 mg tablet 25 mg PO QDAY #90 tabs 03/11/23 metoprolol succinate 100 mg 100 mg PO Q DAY #90 tabs 03/11/23 tablet,extended release 24 hr Allergies Allergy/AdvReac Type Severity Reaction Status Date / Time codeine AdvReac Unknown dizzy Verified 03/15/23 10:31 Review of Systems Constitutional Constitutional: Reports system reviewed and no additional complaints, except as documented ENT Ears, Nose, Mouth, and Throat: Reports system reviewed and no additional complaints, except as documented Respiratory Respiratory: Reports system reviewed and no additional complaints, except as documented Gastrointestinal Gastrointestinal: Reports system reviewed and no additional complaints, except as documented Musculoskeletal Musculoskeletal: Reports system reviewed and no additional complaints, except as documented Integumentary/Breasts Skin/Breast: Reports system reviewed and no additional complaints, except as documented Patient History Medical History Impaired glucose tolerance Depression (08/23/14) Mixed hyperlipidemia (10/02/10) Generalized anxiety disorder (08/22/10) Essential hypertension (08/22/10) Surgical History Status post tonsillectomy and adenoidectomy Social History marital status: number of children: 2 household members: spouse lives independently: Yes caregiver/support person: No housing: house pets and animals: Yes education level: college occupational status: other 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 leisure activities: other Smoking Status: Former smoker Tobacco: How many years used: 20 Smokeless tobacco user: other quit status: quit date established second hand exposure: Yes (Childhood) alcohol intake: current substance use type: does not use and marijuana Smoking Status: Former smoker alcohol intake frequency: a few times a week Alcohol type: beer and wine Substance Use Type: does not use Exam Initial Vital Signs Initial Vital Signs: Vital Signs Temperature 97.9 F 03/15/23 10:23 Pulse Rate 76 03/15/23 10:23 Respiratory Rate 14 03/15/23 10:23 Blood Pressure 130/68 03/15/23 10:23 Pulse Oximetry 94 03/15/23 10:23 Oxygen Delivery Method Room Air 03/15/23 10:23 Const General: cooperative, comfortable and No ill appearing HENMT Head: normal to inspection and normocephalic Resp Effort & Inspection: normal respiratory effort Auscultation: clear to auscultation bilaterally Cardio Rate: regular rate Rhythm: regular rhythm Neuro General: patient alert, patient awake and moves all extremities Course Orders Ordered: ED Orders 03/15/23 10:35 COVID19 -Nasal RAPID Stat Vital Signs Vital signs: Vital Signs - 8 hr 03/15/23 10:23 Temperature 97.9 F Pulse Rate 76 Respiratory Rate 14 Blood Pressure 130/68 Pulse Oximetry 94 Oxygen Delivery Method Room Air Medical Decision Making Lab Data Lab results reviewed: Yes I reviewed the patient's lab results. Labs: Lab Results 03/15/23 Range/Units 10:35 SARS-CoV-2 (PCR) Positive H (Negative) MDM Narrative Medical decision making narrative: Patient has had symptoms for greater than 1 week although just more severe symptoms over the past 5 days or so. No problems breathing. Not hypoxic. Not tachypneic. Lungs are clear. No indication for admission to the hospital. Given the length of time that he has had symptoms he has not a candidate for Paxlovid. Will discharge patient home. We did discuss quarantine. Discussed return precautions. He expressed understanding and agreement. Discharge Plan Departure Patient Disposition: Home Clinical Impression: COVID-19 Instructions: COVID-19 Activity Restrictions/Additional Instructions: Continue to take all of your medications as directed. Be sure that you are getting plenty of rest. Increase your fluid intake. You can take Tylenol and ibuprofen for fevers and body aches. Return to the emergency department for worsening problems breathing Prescriptions: No Action multivitamin Tablet 1 tab PO DAILY Qty: 0 citalopram 40 mg tablet 40 mg PO DAILY Qty: 90 1RF clonazepam 1 mg tablet 1 mg PO BID Qty: 180 2RF Patient Comments: take 1 tablet by mouth twice a day amlodipine 10 mg tablet 10 mg PO DAILY Qty: 90 3RF hydrochlorothiazide 25 mg tablet 25 mg PO QDAY Qty: 90 3RF metoprolol succinate 100 mg tablet extended release 24 hr 100 mg PO Q DAY Qty: 90 3RF aspirin 325 mg tablet,delayed release (DR/EC) 325 mg PO DAILY ibuprofen [Advil] 200 mg tablet 200 mg PO BID Qty: 0 bupropion HCl 150 mg tablet extended release 24 hr 150 mg PO QAM Qty: 90 3RF Referrals: Gilmar Darnell MD [Primary Care Provider] - Stand Alone Forms: Patient Portal/API
[2023-03-15 11:43] VITALS: PULSE 61; RESP 18; O2SAT 95
== END 2023-03-15 11:44 | disposition home or self-care (01) ==
PROVIDERS: Emergency Provider Emergency Medicine; PCP Internal Medicine
DX: U07.1 COVID-19 (principal)
CPT/HCPCS: 87635; 99281; 99282

== ENCOUNTER → 2023-07-15 06:58 | Outpatient (CLI) | payer OTHER, SELFPAY ==
[2023-07-15 08:11] LABS: Add Manual Diff / Slide Review NO; Basophils Absolute Auto 100 /uL (0-100); Basophils Percent Auto 0.8 % (0-2); Eosinophils Absolute Auto 200 /uL (0-450); Eosinophils Percent Auto 2.9 % (2-4); Hematocrit 42.4 % (41-53); Hemoglobin 15.1 g/dL (13.5-17.5); Lymphocytes Absolute Auto 1500 /uL (1100-4500); Lymphocytes Percent Auto 22.3 % (25-40); Mean Corpuscular HGB Conc 35.6 % (30-36); Mean Corpuscular Hemoglobin 35.8 PG (26-34); Mean Corpuscular Volume 100.6 fL (80-100); Monocytes Absolute Auto 700 /uL (0-900); Monocytes Percent Auto 11.3 % (3-14); Neutrophils Absolute Auto 4200 /uL (1500-7000); Neutrophils Percent Auto 62.7 % (50-75); Platelet Count 161 X10^3/uL (150-400); Red Blood Cell Count 4.21 X10^6/uL (4.5-5.9); Red Cell Distribution Width 12.9 % (11.6-14.8); White Blood Cell Count 6.6 X10^3/uL (4.5-11.0)
[2023-07-15 08:41] LABS: Alanine Aminotransferase 23 IU/L (<50); Albumin 3.9 g/dL (3.5-5.0); Albumin Globulin Ratio 1.8 (1.0-2.8); Alkaline Phosphatase 76 U/L (38-126); Aspartate Aminotransferase 34 IU/L (17-59); BUN Creatinine Ratio 32.6 (6-22); Bilirubin Total 0.8 mg/dL (0.2-1.3); Blood Urea Nitrogen 28 mg/dL (9-20); Carbon Dioxide 28 mmol/L (22-32); Chloride 108 mmol/L (98-107); Cholesterol 184 mg/dL (140-199); Estimated Glomerular Filt Rate > 60 mL/min (>60); Globulin 2.2 g/dL (1.7-4.1); Glucose 138 mg/dL (80-110); HDL Cholesterol 40 mg/dL (40-60); HEMOLYSIS < 15 (0-50); LDL Cholesterol Calculated 104 mg/dL (<100); Potassium 4.3 mmol/L (3.4-5.1); Sodium 140 mmol/L (137-145); Total Protein 6.1 g/dL (6.3-8.2); Triglycerides 200 mg/dL (35-150)
== END ==
LOC: LAB 07:00
PROVIDERS: PCP Internal Medicine; Referring Provider Internal Medicine; Visit Provider Internal Medicine
DX: Z13.6 Encounter for screening for cardiovascular disorders (principal); R73.02 Impaired glucose tolerance (oral); I10 Essential (primary) hypertension; F41.1 Generalized anxiety disorder
CPT/HCPCS: 36415; 80053; 80061; 85025

== ENCOUNTER → 2023-11-05 10:47 | Outpatient (CLI) | payer OTHER, SELFPAY ==
--- NOTE | 2023-11-05 10:48 | DI.RAD.S_ITS ---
PROCEDURE: XR HAND RT MIN 3V INDICATIONS: Possible foreign body base of right thumb TECHNIQUE: 3 views of the hand(s) acquired. COMPARISON: [facility], CR, XR HAND RT MIN 3V, 12/31/2022, 10:21. FINDINGS: Bones: 3 mm ossification dorsal soft tissues overlying the lunate appreciated. This is likely remote avulsion fracture. No other osseous abnormality. Joints: Severe STT and 1st CMC degeneration appreciated. Moderate 1st 2nd and 3rd MCP degeneration noted. Soft tissues: No radiopaque foreign body seen in the soft tissues overlying the 1st metacarpal IMPRESSION: Multilevel degenerative change. Probable small old avulsion fracture of the dorsal lunate. No radiopaque foreign body seen over the 1st metacarpal. A radiographically occult radiolucent foreign body could be localized with ultrasound, if there is strong clinical suspicion Dictated by: Gilmar Stevenson M.D. on 11/06/2023 at 7:27 Approved by: Gilmar Stevenson M.D. on 11/06/2023 at 7:29
== END ==
PROVIDERS: PCP Internal Medicine; Referring Provider Nurse Practitioner Family; Visit Provider Nurse Practitioner Family
DX: S60.551A Superficial foreign body of right hand, initial encounter (principal); X58.XXXA Exposure to other specified factors, initial encounter
CPT/HCPCS: 73130

== ENCOUNTER → 2024-01-13 06:29 | Outpatient (CLI) | payer OTHER, SELFPAY ==
[2024-01-13 08:24] LABS: Hemoglobin A1C% w Est Avg Glu 5.8 % (4.0-6.0)
[2024-01-13 08:41] LABS: Alanine Aminotransferase 24 IU/L (<50); Albumin Globulin Ratio 1.5 (1.0-2.8); Alkaline Phosphatase 70 U/L (38-126); Aspartate Aminotransferase 42 IU/L (17-59); BUN Creatinine Ratio 15.3 (6-22); Bilirubin Total 0.9 mg/dL (0.2-1.3); Blood Urea Nitrogen 13 mg/dL (9-20); Calcium 10.1 mg/dL (8.4-10.2); Carbon Dioxide 28 mmol/L (22-32); Chloride 104 mmol/L (98-107); Cholesterol 193 mg/dL (140-199); Estimated Glomerular Filt Rate > 60 mL/min (>60); Globulin 2.6 g/dL (1.7-4.1); Glucose 124 mg/dL (80-110); HDL Cholesterol 39 mg/dL (40-60); HEMOLYSIS < 15 (0-50); LDL Cholesterol Calculated 117 mg/dL (<100); Potassium 4.3 mmol/L (3.4-5.1); Sodium 136 mmol/L (137-145); Total Protein 6.6 g/dL (6.3-8.2); Triglycerides 187 mg/dL (35-150)
== END ==
PROVIDERS: PCP Internal Medicine; Referring Provider Internal Medicine; Visit Provider Internal Medicine
DX: R73.02 Impaired glucose tolerance (oral) (principal); I10 Essential (primary) hypertension
CPT/HCPCS: 36415; 80053; 80061; 83036

== ENCOUNTER → 2024-12-13 07:24 | Outpatient (CLI) | payer OTHER, SELFPAY | LOC: CAR 03-18 07:25 | PROVIDERS: PCP Internal Medicine; Referring Provider Internal Medicine; Visit Provider Internal Medicine | DX: R55 Syncope and collapse (principal) | CPT/HCPCS: 93246 ==

== ENCOUNTER → 2025-01-06 07:11 | Outpatient (CLI) | payer OTHER, SELFPAY ==
[2025-01-06 08:05] LABS: Alanine Aminotransferase 23 IU/L (<50); Albumin 4.2 g/dL (3.5-5.0); Albumin Globulin Ratio 1.6 (1.0-2.8); Alkaline Phosphatase 73 U/L (38-126); Blood Urea Nitrogen 23 mg/dL (9-20); Calcium 9.5 mg/dL (8.4-10.2); Carbon Dioxide 25 mmol/L (22-32); Chloride 104 mmol/L (98-107); Cholesterol 188 mg/dL (140-199); Estimated Glomerular Filt Rate > 60 mL/min (>60); Globulin 2.6 g/dL (1.7-4.1); Glucose 141 mg/dL (70-99); HDL Cholesterol 40 mg/dL (40-60); HEMOLYSIS < 15 (0-50); Potassium 3.8 mmol/L (3.4-5.1); Sodium 138 mmol/L (137-145); Total Protein 6.8 g/dL (6.3-8.2); Triglycerides 211 mg/dL (35-150); Uric Acid 8.9 mg/dL (3.5-8.5)
[2025-01-06 08:11] LABS: Hemoglobin A1C% w Est Avg Glu 5.7 % (4.0-6.0)
== END ==
PROVIDERS: PCP Internal Medicine; Referring Provider Internal Medicine; Visit Provider Internal Medicine
DX: R73.02 Impaired glucose tolerance (oral) (principal); I10 Essential (primary) hypertension; F41.1 Generalized anxiety disorder; F32.9 Major depressive disorder, single episode, unspecified; Z87.39 Personal history of other diseases of the musculoskeletal system and connective tissue
CPT/HCPCS: 36415; 80053; 80061; 83036; 84550